=== PATIENT | male | born 1960 | race Caucasian/White ===

== ENCOUNTER 2019-05-01 04:50 | Observation (INO) | payer OTHER, SELFPAY ==
[2019-05-01] VITALS (10 sets, daily range): BP systolic 130–151; BP diastolic 76–89; PULSE 60–87; RESP 16–19; TEMP 36.4–36.9; O2SAT 95–99; BMI 36.3; BMI 35.9
[2019-05-01] MEDS: DiphenhydrAMINE 50 MG/ML Syringe IV (05:32)
[2019-05-01] MEDS: MethylPREDNISolone 125 MG/2 ML Vial IV (05:33)
--- NOTE | 2019-05-01 05:37 | ED.VISSUMM ---
- ER Visit Summary Date of Service: 05/01/19 Chief Complaint: [Swelling to lips] History of Present Illness: The patient is a 59 M [presents to the emergency department complaint of swelling to his lips that he noticed this morning at 3:30 AM when he woke up to use the restroom. Patient denies any trauma. He denies difficulty breathing or swallowing at this time. He is never had this happen before. Patient is on lisinopril and has been on it for years. He denies any new medications. He denies recent illness. Patient has history of GERD, hypertension, high cholesterol.] Physical Examination: [HEENT-PERRLA, EOMI. Cranial nerves II through XII grossly intact. TMs clear. Mucous membranes moist. No adenopathy. Patient has significant edema of the upper and lower lips as well as onto the right vehicle mucosa. No evidence of angioedema of the tongue at this time. Minimal angioedema of the uvula noted. Was in the midline and there is no trismus. No stridor on exam. Cardiovascular-regular rate and rhythm without murmur or ectopy Lungs-clear to auscultation, chest wall stable without crepitus or subcu emphysema Abdomen-normoactive bowel sounds, soft, nontender, no rebound or rigidity, no peritoneal signs. Extremities-intact ?4, normal range of motion, normal pulses, atraumatic] Test Results: [None indicated] Emergency Department Course and Treatment: [She was given Solu-Medrol 125 mill grams IV. Patient given Benadryl 50 mg IV. Patient given Pepcid 40 mg IV.] Treatment Plan: [Will be admitted for observation.] Disposition: [Admit] Impression: [Angioedema secondary to lisinopril] This note was generated with [employer] dictation software. It may contain incorrect words, spelling, and punctuation that were not noted in review of the chart prior to signing ED Disposition - Plan for ED Patient: [facility] [[facility] Provider] -
--- NOTE | 2019-05-01 05:41 | ED.RN ---
CALLED [facility], SPOKE TO ANA, BED CONTROL, TO ADVISE THE NEED TO ADMIT THIS PT. FAXED TO HER SOME REQUESTED INFORMATION.
--- NOTE | 2019-05-01 05:50 | PCM.HP.STD ---
Problem List (1) Hypertension Status: Chronic (2) Angioedema Status: Acute History of Present Illness Date of Admission: 05/01/19 Chief Complaint: lips swollen The patient is a 59 year old male patient with a past medical history of hypertension who is been treated with lisinopril for several years presents the emergency room with swelling of his lips. He states prior to going to bed he felt a little funny in his right cheek but when he woke up at 3:00 to go to the bathroom he realized his lips were markedly swollen and as a result he found it difficult to speak clearly. He denies shortness of breath, there was no tongue swelling or oropharynx involvement. No nausea vomiting or diarrhea. Due to concern for sudden swelling of his lips patient came to the emergency room for evaluation and was diagnosed with angioedema secondary to lisinopril. The patient received famotidine Benadryl and steroids in the emergency room and admission for observation was requested. Past Medical History Past Medical History (Chronic Problems): Chronic Problems Hypertension (Chronic) Allergies No Known Allergies Allergy (Verified 05/01/19 04:51) Home Medications: Ambulatory Orders Medication Instructions Recorded Gabapentin [Neurontin] 600 mg PO TIDCM 05/01/19 Lisinopril [Zestril] 10 mg PO DAILY 05/01/19 Pantoprazole Sodium [Protonix] 40 mg PO DAILY 05/01/19 Smoking Status: Current some day smoker - *Family History Maternal History Items: No pertinent history Review of Systems Constitutional: Denies: Chills, Fever, Weight Change HEENT: Denies: Head Aches, Sinus Congestion, Sinus Drainage Cardiovascular: Denies: Chest Pain, Palpitations Respiratory: Denies: Cough, Shortness of breath at rest, Sputum production Gastrointestinal: Denies: Abdominal Pain, Nausea, Vomiting Genitourinary: Denies: Dysuria Musculoskeletal: Denies: Joint Pain, Joint Tenderness Skin: Reports: Skin Changes - edema mouth. Denies: Rash, Wounds Neurological: Reports: Change in Speech. Denies: Focal weakness, Numbness, Tingling Psychiatric: Denies: Anxiety, Depression, Homicidal Ideations, Suicidal Ideations Hematologic/ Lymphatic: Denies: Easy Bruising, Easy Bleeding VTE Information - Inpt Only VTE Present on Admission: No VTE Mechan Device Prophylaxis: None VTE Pharm Prophylaxis ordered?: Yes Patient Problems: Active and Suspected Problems Angioedema (Acute) - Physical Exam General: Alert, Oriented x3, Cooperative HEENT: Normocephalic Neck: Supple Lungs: Clear to auscultation, Normal air movement, No rhonchi, No wheeze, No rales Cardiovascular: Regular rate, Regular Rhythm, Normal S1, Normal S2, No murmurs Abdomen: Bowel Sounds Present, Soft, Non Tender Extremities: No edema, Capillary Refill Less than 3 Seconds Skin: No rashes, - - marked swelling of both lips and surrounding face, tongue, dominic and posterior pharynx are wnl Musculoskeletal: No Tenderness to Palpation of Joints or Extremities Neurological: Neuro grossly intact Psych/Mental Status: Normal Affect, Appropriate Vital Signs Temp Pulse Resp BP Pulse Ox 98.4 F 87 19 H 130/89 H 99 05/01/19 04:54 05/01/19 05:40 05/01/19 05:40 05/01/19 05:40 05/01/19 05:40 Oxygen Delivery Method Room Air Weight: 260 lb 2.327 oz Body Mass Index (BMI) 36.3 Assessment/Plan All Active Problems Angioedema (Acute) Chronic Problems Hypertension (Chronic) Plan 1. Angioedema?admit patient to progressive care unit for observation, continue Benadryl 50 mg IV every 6 hours as needed continue famotidine 20 mg IV every 12 hours as needed, IV Solu-Medrol 60 mg IV every 6 as needed. Discontinue RAMAN inhibitors for life 2. Hypertension?now that RAMAN inhibitor has been discontinued we will need to evaluate if alternative is necessary at this time or if can be started as an outpatient. 3. DVT prophylaxis?low molecular weight heparin 4. GERD?continue home medication Code Visit OBSV E&M: 11401 Initial observation care L2
--- NOTE | 2019-05-01 11:34 | DCINST_ITS ---
- Discharge Diagnoses Current Active Problems: Current Active and Chronic Problems Hypertension (Chronic) Angioedema (Acute) You will use the following diet at home:: Cardiac Your food should be the consistency of: Regular Your liquids should be the consistency of: Regular/Thin Discharge Activity: Return to Normal Activity Additional Instructions: do not take any more lisinopril. Allergies/Adverse Reactions: Allergies lisinopril Allergy (Verified 05/01/19 08:20) Angioedema Medications to take at Discharge Amlodipine [Norvasc] 5 mg PO DAILY #30 tab 05/01/19 DiphenhydrAMINE [Benadryl] 25 mg PO TID #9 capsule 05/01/19 Gabapentin [Neurontin] 600 mg PO TIDCM 05/01/19 Pantoprazole Sodium [Protonix] 40 mg PO DAILY 05/01/19 Prednisone 10 mg PO UD #30 tab 05/01/19 The following prescriptions were given: DiphenhydrAMINE [Benadryl] 25 mg PO TID #9 capsule Amlodipine [Norvasc] 5 mg PO DAILY #30 tab Transmission Status: Pending to [facility] Prednisone 10 mg PO UD #30 tab Prescription Printed Primary Care Physician: [facility],[place] [Primary Care Provider] - Please follow up with your Primary Care Physician in: 1-2 weeks Test Results: Test results from this visit will be discussed in further detail at your follow- up appointment, if applicable. Proposed Discharge Date: 05/01/19
--- NOTE | 2019-05-01 12:16 | PHA.DC.MC ---
Pharmacy Service has performed discharge medication reconciliation and counseling for this patient. The patient's discharge medication list was reviewed for discrepancies and discrepancies were resolved. The patient was counseled on the following discharge medications and changes in medications for homegoing were reviewed. 1. PREDNISONE TAPER 2. AMLODIPINE 5MG 1T PO DAILY 3. BENADRYL 25MG PO TID The Reason for Use, instructions for use, and potential side effects were reviewed for all new medications. The patient's questions regarding all of their medications were answered. The patient demonstrated some understanding but would benefit from further education and reinforcement. Home Medications Amlodipine [Norvasc] 5 mg PO DAILY #30 tab 05/01/19 DiphenhydrAMINE [Benadryl] 25 mg PO TID #9 cap 05/01/19 Gabapentin [Neurontin] 600 mg PO TIDCM 05/01/19 Pantoprazole Sodium [Protonix] 40 mg PO DAILY 05/01/19 Prednisone 10 mg PO UD #30 tab 05/01/19
--- NOTE | 2019-05-01 13:54 | PCM.DC.SUM ---
Discharge Date and Diagnosis - Problem List Patient Problems: Active and Suspected Problems Angioedema (Acute) Date of Admission: 05/01/19 Date of Discharge: 05/01/19 - Primary Discharge Diagnosis Active and Suspected Problems Angioedema (Acute) 2/2 RAMAN inhibitor HTN - Secondary Discharge Diagnosis Chronic Problems Hypertension (Chronic) Hospital Course and Treatment Operations: None Procedures: None Summary of Care Provided: The patient is a 59 year old M with pmhx of HTN who presented to the ER with facial swelling. He had major swelling of the lips and also had swelling into the eyes. His tongue was unaffected. He had no respiratory distress, SOB, or throat tightness. He did have difficulty speaking. He was given IV solumedrol and IV benadryl, and IV pepcid and admitted to the PCU on tele. He was taken off lisinopril. He had significant improvement overnight. His lips improved dramatically. He continued to not have any involvement of the tongue or throat. He had no respiratory distress. He was transitioned to a prednisone taper and advised to continue scheduled benadryl for the next three days. He was discharged home in stable condition and will need follow up with his PCP in 1-2 weeks. He was started on norvasc to replace the lisinopril. [] Patient Problems: Active and Suspected Problems Angioedema (Acute) - Physical Exam General: Alert, Oriented x3, Cooperative HEENT: Atraumatic, PERRLA, EOMI, Normocephalic Oral: - - Lips swelling. Neck: Supple, No JVD, Negative Carotid Bruits Lungs: Clear to auscultation, Normal air movement Cardiovascular: Regular rate, No murmurs Abdomen: Bowel Sounds Present, Soft, Non Tender Extremities: No edema, Capillary Refill Less than 3 Seconds Skin: No rashes, No breakdown Musculoskeletal: No Tenderness to Palpation of Joints or Extremities Neurological: Cranial nerves II-XII grossly intact Psych/Mental Status: Normal Affect, Appropriate Vital Signs Temp Pulse Resp BP Pulse Ox 97.5 F L 78 18 139/79 H 98 05/01/19 07:02 05/01/19 07:29 05/01/19 07:02 05/01/19 07:02 05/01/19 07:02 Oxygen Delivery Method Room Air Weight: 257 lb 4.471 oz Body Mass Index (BMI) 35.9 Discharge Diet: Low fat/ Low Cholesterol, 2000 mg Sodium Diet Discharge Activity: Return to Normal Activity Home Medications: Medications to take at Discharge Amlodipine [Norvasc] 5 mg PO DAILY #30 tab 05/01/19 DiphenhydrAMINE [Benadryl] 25 mg PO TID #9 cap 05/01/19 Gabapentin [Neurontin] 600 mg PO TIDCM 05/01/19 Pantoprazole Sodium [Protonix] 40 mg PO DAILY 05/01/19 Prednisone 10 mg PO UD #30 tab 05/01/19 Following Prescrptions Were Given to Patient: DiphenhydrAMINE [Benadryl] 25 mg PO TID #9 cap Amlodipine [Norvasc] 5 mg PO DAILY #30 tab Transmission Status: Received by [facility] Prednisone 10 mg PO UD #30 tab Prescription Printed Primary Care Physician: [facility] [Primary Care Provider] - Please follow up with your Primary Care Physician in: 1-2 weeks Disposition: Home Minutes spent on discharge:: 35 Patient Condition:: Stable Medical Necessity - Tobacco Use Smoking Status: Current some day smoker Tobacco Use: Cigars Meaningful Use Info Meaningful Use Diagnoses (Choose all that apply): None applicable
[2019-05-01] MEDS: MethylPREDNISolone 125 MG/2 ML Vial 60 MG IV ×2 (14:16→17:18)
--- NOTE | 2019-05-01 17:17 | PCM.PROGNOTE ---
Patient Problems: Active and Suspected Problems Angioedema (Acute) Subjective: Pt resting comfortably in bed. Lips still somewhat swollen. No throat tightness, no SOB, no difficulty breathing. No hives. No chest pain/pressure/tightness. No LE edema. Taking lisinopril for HTN - not taking any other meds for htn. - Physical Exam General: Alert, Oriented x3, Cooperative HEENT: Atraumatic, PERRLA, EOMI, Normocephalic, - - lips swollen. Neck: Supple, No JVD, Negative Carotid Bruits Lungs: Clear to auscultation, Normal air movement Cardiovascular: Regular rate, No murmurs Abdomen: Bowel Sounds Present, Soft, Non Tender, Obese Extremities: No edema, Capillary Refill Less than 3 Seconds Skin: No rashes, No breakdown Musculoskeletal: No Tenderness to Palpation of Joints or Extremities Neurological: Cranial nerves II-XII grossly intact Psych/Mental Status: Normal Affect, Appropriate, Alert and oriented to time, place, person, mood and affect Vital Signs Temp Pulse Resp BP Pulse Ox 98 F 71 16 138/81 H 95 05/01/19 15:10 05/01/19 15:24 05/01/19 15:10 05/01/19 15:10 05/01/19 15:10 Oxygen Delivery Method Room Air Weight: 257 lb 4.471 oz Body Mass Index (BMI) 35.9 Intake and Output for Last 24 Hours 04/29/19 04/30/19 05/01/19 23:59 23:59 23:59 Intake Total 480 / 480 Balance 480 / 480 Medical Necessity - Tobacco Use Smoking Status: Current some day smoker Tobacco Use: Cigars Assessment/Plan All Active Problems Angioedema (Acute) 1. Angioedema - presumed 2/2 portillo inhibitor. DCd. Start norvasc. Rx sent. Continue solumedrol/benadryl/pepcid. Still some swelling, monitor for worsening. Plan for prednisone taper, o/p benadryl, switching to norvasc 2. HTN - switch to norvasc. DVT ppx: lovenox DC planning: monitor overnight. home without needs at [place], [facility]. This patient was seen by Brayan Dugan PA-C under the supervision of Dr. Crespo.
--- NOTE | 2019-05-01 19:32 | NURSING ---
Patient refused MRI due to possibility of having to pay out of pocket. This RN will pass onto dayshift to share with case management.
[2019-05-02] MEDS: MethylPREDNISolone 125 MG/2 ML Vial 60 MG IV ×2 (00:47→06:45)
[2019-05-02] MEDS: 0.9% NaCl Peripheral Flush Adult/Peds IV ×4 (00:48→08:54)
[2019-05-02 03:00] VITALS: PULSE 60
[2019-05-02 04:40] VITALS: BP 138/76; PULSE 70; RESP 16; TEMP 36.4; O2SAT 94
[2019-05-02 06:25] LABS: Absolute Lymphocyte Count 0.71 X10^3/uL (0.83-4.51); Absolute Neutrophil Count 17.9 X10^3/uL (2.0-7.7); Basophil# 0.03 X10^3/uL; Basophil% 0.2 % (0-1); Eosinophil# 0.02 X10^3/uL; Eosinophils% 0.1 % (0-5); Hematocrit 43.8 % (40-54); Lymphocyte # 0.71 X10^3/ul (4.0); Lymphocyte % 3.6 % (19-41); Mean Corp Hgb Conc 34.2 g/dL (32-36); Mean Corpuscular Hgb 32.9 pg (27.0-32.0); Mean Corpuscular Volume 96.1 fL (80-94); Mean Platelet Vol. 9.7 fl (6.2-12.0); Monocyte# 0.62 X10^3/uL; Monocyte% 3.2 % (0-10); NRBC Flagged by Analyzer 0 % (0-5); Neutrophil # 17.89 X10^3/uL (2.7-7.7); Neutrophil % 91.8 % (47-70); POSITIVE MORPHOLOGY YES; Platelet Count 262 K/mm3 (150-450); RBC Distribution Width CV 12.8 % (11.6-14.6); RBC Distribution Width SD 45.4 fl (35.1-43.9); Red Blood Count 4.56 M/mm3 (4.6-6.2); White Blood Count 19.5 K/mm3 (4.4-11.0)
[2019-05-02 06:33] LABS: Differential Indicated SCAN CRITERIA MET
[2019-05-02 06:54] LABS: AST(SGOT) 49 U/L (15-37); Alanine Aminotransfer ALT/SGPT 53 U/L (16-61); Albumin, Serum 3.8 g/dL (3.2-5.0); Alkaline Phosphatase 96 U/L (45-117); Anion Gap 8 (5-15); BUN 14 mg/dL (7-18); Calcium,Total 9.1 mg/dL (8.5-10.1); Chloride 105 mmol/L (98-107); Cholesterol 202 mg/dL (200); EST Glomerular Filtration Rate 81 mL/min (>60); Est Glom Filt Rate - Afr Amer 98 mL/min (>60); Estimated Creatinine Clearance 83.67 ml/min; Glucose 145 mg/dL (74-106); High Density Lipoprotein 43 mg/dL; Magnesium 2.5 mg/dL (1.6-2.6); Phosphorus 2.4 mg/dL (2.5-4.9); Potassium 4.3 mmol/L (3.5-5.1); Protein, Total 7.8 g/dL (6.4-8.2); Sodium Level 136 mmol/L (136-145); Triglycerides 60 mg/dL; Very Low Density Lipoprotein 12 mg/dL (5-40)
[2019-05-02 07:00] VITALS: PULSE 90
--- NOTE | 2019-05-02 08:12 | DCINST_ITS ---
- Discharge Diagnoses Current Active Problems: Current Active and Chronic Problems Hypertension (Chronic) Angioedema (Acute) You will use the following diet at home:: Cardiac Your food should be the consistency of: Regular Your liquids should be the consistency of: Regular/Thin Discharge Activity: Return to Normal Activity Allergies/Adverse Reactions: Allergies lisinopril Allergy (Verified 05/01/19 08:20) Angioedema Medications to take at Discharge Amlodipine [Norvasc] 5 mg PO DAILY #30 tab 05/01/19 Gabapentin [Neurontin] 600 mg PO TIDCM 05/01/19 Pantoprazole Sodium [Protonix] 40 mg PO DAILY 05/01/19 Famotidine [Pepcid] 40 mg PO DAILY 3 Days #3 tablet 05/02/19 Loratadine [Claritin] 10 mg PO DAILY 3 Days #3 tablet 05/02/19 MethylPREDNISolone DosePak [Medrol DosePak] 4 mg PO UD #1 box 05/02/19 The following prescriptions were given: Loratadine [Claritin] 10 mg PO DAILY 3 Days #3 tablet MethylPREDNISolone DosePak [Medrol DosePak] 4 mg PO UD #1 box Amlodipine [Norvasc] 5 mg PO DAILY #30 tab Transmission Status: Received by [facility] [facility] Famotidine [Pepcid] 40 mg PO DAILY 3 Days #3 tablet Primary Care Physician: [facility] [Primary Care Provider] - Please follow up with your Primary Care Physician in: 1-2 weeks Test Results: Test results from this visit will be discussed in further detail at your follow- up appointment, if applicable. Proposed Discharge Date: 05/01/19
[2019-05-02 08:30] VITALS: BP 147/77; PULSE 82; RESP 16; TEMP 36.6; O2SAT 99
[2019-05-02] MEDS: Acetaminophen 325 MG Tablet 650 MG PO (08:36)
[2019-05-02] MEDS: amLODIPine 5 MG Tablet PO (08:40)
[2019-05-02] MEDS: Loratadine 10 MG Tablet PO (08:41)
== END 2019-05-02 08:03 | disposition home or self-care (01) ==
LOC: ED 05:34 → PCU 06:54
PROVIDERS: Admitting Provider Family Medicine; Emergency Provider Emergency Medicine; Visit Provider Internal Medicine
DX: T78.3XXA Angioneurotic edema, initial encounter (principal); T46.4X5A Adverse effect of angiotensin-converting-enzyme inhibitors, initial encounter; I10 Essential (primary) hypertension; Z79.899 Other long term (current) drug therapy; E78.00 Pure hypercholesterolemia, unspecified; K21.9 Gastro-esophageal reflux disease without esophagitis
CPT/HCPCS: 36415; 80053; 80061; 83735; 84100; 85025; 96374; 96375; 96376; 99218; 99285; A4216; G0378; J3490

== ENCOUNTER 2020-09-20 18:57 | Emergency (ER) | payer OTHER, MEDICAID, SELFPAY ==
[2019-05-01 06:54] VITALS: BMI 35.9
[2020-09-20] VITALS (10 sets, daily range): BP systolic 109–166; BP diastolic 66–104; PULSE 89–110; RESP 14–24; TEMP 36.5; O2SAT 95–99; BMI 35.6
--- NOTE | 2020-09-20 19:45 | ED.DCSUM_ITS ---
- ER Visit Summary Date of Service: 09/20/20 Chief Complaint: Steak stuck in his throat History of Present Illness: The patient is a 60 M history of hypertension. He has had prior esophageal obstruction but did not need to be scoped he threw up the meat at that time. Said tonight for dinner around 5:00 he had steak has not been able swallow since then. He feels like it stuck in his esophagus. Physical Examination: Middle-aged male no acute distress vital signs stable afebrile. The patient a glass of water he can swallow up but it would not stay down he brought her right back up. He is in no respiratory distress. Vital signs are stable afebrile. Pulse ox 97% on room air no hypoxia. HEENT exam unremarkable. Neck nontender no lymphadenopathy. Lungs clear to auscultation. Heart regular rhythm no murmur. Abdomen soft nontender normal bowel sounds no peritoneal signs. Moving all 4 extremities. No edema. Neurologically is awake alert with no focal motor deficits. Test Results: None Emergency Department Course and Treatment: Patient treated with IV glucagon. He is unable to swallow. Clinically appears to have esophageal obstruction from the meat bolus. I have general surgery on page. IV glucagon without any improvement. Procedure note: Dr. Justice to do upper endoscopy. I was doing the conscious sedation using IV propofol. Patient was initially given 100 mg of propofol. After that he was given subsequent aliquots of 50 mg IV x3 for a total of [address] Justice I was able to see the esophageal meat bolus. He was able to push it in the stomach. Patient tolerated procedure well. His vital signs remained stable. He never became hypotensive nor hypoxic the entire time. He will be observed and then eventually discharged home. Patient doing well at 9:57 PM and will be discharged home with family is going to pick him up. Treatment Plan: Outpatient follow-up with Dr. Clyde Justice. Continue on his current medications. Disposition: Discharge Impression: Acute esophageal obstruction secondary to meat impaction Conscious sedation using propofol by ER Upper endoscopy by general surgeon This note was generated with [employer] dictation software. It may contain incorrect words, spelling, and punctuation that were not noted in review of the chart prior to signing ED Disposition - Plan for ED Patient: Disposition: Home or Assisted Living Instructions: ED Esophageal Foreign Body, Resolved Referrals: Clyde Justice MD [STAFF PHYSICIAN] - 1-2 Weeks Additional Instructions: Continue your current medications. Chew your food thoroughly and slowly before swallowing. Call and follow-up with Dr. Clyde Justice for possible further upper endoscopy.
[2020-09-20] MEDS: Glucagon 1 MG/ML Syringe IV (19:48)
[2020-09-20] MEDS: Propofol 200 MG/20 ML Vial 80 MG IV BOLUS (21:27)
--- NOTE | 2020-09-20 21:28 | ED.DEP ---
ED Disposition - Plan for ED Patient: Disposition: Home or Assisted Living Instructions: ED Esophageal Foreign Body, Resolved Referrals: Clyde Justice MD [STAFF PHYSICIAN] - 1-2 Weeks Additional Instructions: Continue your current medications. Chew your food thoroughly and slowly before swallowing. Call and follow-up with Dr. Clyde Justice for possible further upper endoscopy.
[2020-09-20] MEDS: Propofol 200 MG/20 ML Vial IV BOLUS (21:30)
--- NOTE | 2020-09-20 21:31 | PCM.CONS.GEN ---
Problem List (1) Food impaction of esophagus Status: Acute Qualifiers: Encounter type: initial encounter Qualified Code(s): T18.128A - Food in esophagus causing other injury, initial encounter Reason for Consult Date of Consultation: 09/20/20 History of Present Illness: The patient is a 60 year old M who presented after swallowing steak for dinner and feeling like it did not go down. He has been vomiting since. This is happened once in the past but he did vomit the food bolus. He does have acid reflux and he is on a PPI. Past Medical History Past Medical History (Chronic Problems): Chronic Problems Hypertension (Chronic) Allergies lisinopril Allergy (Verified 09/20/20 18:58) Angioedema Home Medications: Ambulatory Orders Medication Instructions Recorded Amlodipine [Norvasc] 5 mg PO DAILY #30 tab 05/01/19 Gabapentin [Neurontin] 600 mg PO TIDCM 05/01/19 Pantoprazole Sodium [Protonix] 40 mg PO DAILY 05/01/19 Smoking Status: Current some day smoker Tobacco Use: Cigars - *Family History Maternal History Items: No pertinent history Review of Systems Constitutional: Denies: Anorexia, Fever HEENT: Reports: Dysphasia Cardiovascular: Denies: Chest Pain Respiratory: Denies: Cough, Shortness of Breath Gastrointestinal: Reports: Vomiting. Denies: Abdominal Pain, Nausea Musculoskeletal: Denies: Joint Tenderness Skin: Denies: Jaundice Neurological: Denies: Balance problems Hematologic/ Lymphatic: Denies: Anemia - Physical Exam Vitals/I&O's: Vital Signs Temp Pulse Resp BP Pulse Ox 97.7 F L 103 H 19 H 131/81 H 97 09/20/20 18:59 09/20/20 21:25 09/20/20 21:25 09/20/20 21:25 09/20/20 21:25 Oxygen Flow Rate (L/min) [5] 15 Oxygen Flow Rate (L/min) [4] 15 Oxygen Flow Rate (L/min) [3] 15 Oxygen Flow Rate (L/min) [2] 15 Oxygen Flow Rate (L/min) [1 ( 2 Initial Baseline)] Oxygen Flow Rate (L/min) 2 Oxygen Delivery Method [5] Nasal Cannula Oxygen Delivery Method [4] Nasal Cannula Oxygen Delivery Method [3] Nasal Cannula Oxygen Delivery Method [2] Nasal Cannula Oxygen Delivery Method [1 ( Nasal Cannula Initial Baseline)] Oxygen Delivery Method Nasal Cannula Weight: 256 lb Body Mass Index (BMI) 35.6 General: Alert, Oriented x3 Lungs: Normal air movement Cardiovascular: Regular rate, Regular Rhythm Abdomen: Soft, Non Tender, Non-Distended Assessment/Plan All Active Problems Angioedema (Acute) Food impaction of esophagus (Acute) 60-year-old male with food impaction of the esophagus 1. Patient does have longstanding acid reflux but he is on a PPI. This is happened once in the past. Patient is unable to handle his secretions. I discussed EGD with possible removal or advancement of the food bolus. The patient is understanding and agreed to proceed. I discussed the risks of bleeding, infection, perforation of the esophagus, aspiration. Patient understood and proceed with procedure. 2. The patient tolerated EGD well and a food bolus was advanced into the esophagus. The patient started to come out of anesthesia and I did not want to give him any more medication so I was unable to identify the reason for the food impaction. There is no obvious mass on the quick observation of the esophagus during withdrawal. I would like the patient to follow-up with me and I will schedule him for an elective EGD with possible dilation if there is a stricture causing this obstruction. I have recommended that the patient have a soft diet for the next 2 days. Clyde Justice MD Pager: [facility] [address] [place] [address], [address] [place] [phone] Office:
--- NOTE | 2020-09-20 21:37 | OP.EGD_ITS ---
Patient Name: Daniel Avilez Procedure Date: 09/20/2020 9:07 PM Date of : 1960 Age: 60 Procedure: Upper GI endoscopy Indications: Foreign body in the esophagus Providers: Clyde Justice MD Medicines: Monitored Anesthesia Care Patient Profile: This is a 60 year old male. Refer to note in patient chart for documentation of history and physical. Complications: No immediate complications. Procedure: Pre-Anesthesia Assessment: - Prior to the procedure, a History and Physical was performed, and patient medications and allergies were reviewed. The patient's tolerance of previous anesthesia was also reviewed. The risks and benefits of the procedure and the sedation options and risks were discussed with the patient. All questions were answered, and informed consent was obtained. Prior Anticoagulants: The patient has taken no previous anticoagulant or antiplatelet agents. After reviewing the risks and benefits, the patient was deemed in satisfactory condition to undergo the procedure. After obtaining informed consent, the endoscope was passed under direct vision. Throughout the procedure, the patient's blood pressure, pulse, and oxygen saturations were monitored continuously. The Endoscope was introduced through the mouth, and advanced to the second part of duodenum. The upper GI endoscopy was accomplished without difficulty. The patient tolerated the procedure well. Scope In: 9:18:21 PM Scope Out: 9:21:32 PM Total Procedure Duration Time 0 hours 3 minutes 11 seconds Findings: Food was found in the lower third of the esophagus. Removal of food was accomplished. Food was advanced into the stomach The stomach was normal. Impression: - Food in the lower third of the esophagus. Removal was successful. - Normal stomach. Recommendation: - Discharge patient to home. - Resume previous diet. - Continue present medications. - Return to my office at appointment to be scheduled. Procedure Code(s): --- Professional --- 16026, Esophagogastroduodenoscopy, flexible, transoral; with removal of foreign body(s) Diagnosis Code(s): --- Professional --- T18.128A, Food in esophagus causing other injury, initial encounter T18.108A, Unspecified foreign body in esophagus causing other injury, initial encounter CPT copyright 2017 [employer]. All rights reserved. The codes documented in this report are preliminary and upon transmission and coordination engineer review may be revised to meet current compliance requirements. Clyde Justice MD 09/20/2020 9:35:43 PM This report has been signed electronically. Number of Addenda: 0 Note Initiated On: 09/20/2020 9:07 PM
--- NOTE | 2020-09-20 21:37 | OP.CCLET_ITS ---
09/20/2020 [facility] Re : Upper GI endoscopy procedure for [facility] This procedure was performed on Sunday, September 20, 2020. My impressions and recommendations are as follows: Impressions : - Food in the lower third of the esophagus. Removal was successful. - Normal stomach. Recommendations : - Discharge patient to home. - Resume previous diet. - Continue present medications. - Return to my office at appointment to be scheduled. My findings are described in the full procedure note, which is enclosed. If I can be of further assistance, please feel free to contact me at Doctor phone number(s): , Work: . Sincerely, Clyde Justice MD 09/20/2020 9:35:43 PM This report has been signed electronically.
--- NOTE | 2020-09-20 22:25 | ED.RN ---
pt called family for ride. Niece picking up pt
== END 2020-09-20 22:26 | disposition home or self-care (01) ==
PROVIDERS: Surgery; Emergency Provider Emergency Medicine
PROC: 0DJ08ZZ Inspection of Upper Intestinal Tract, Via Natural or Artificial Opening Endoscopic (ICD-10-PCS; CPT 43235; principal; 2020-09-20 21:00)
DX: T18.128A Food in esophagus causing other injury, initial encounter (principal); F17.200 Nicotine dependence, unspecified, uncomplicated; I10 Essential (primary) hypertension; X58.XXXA Exposure to other specified factors, initial encounter
CPT/HCPCS: 43247; 96374; 96376; 99152; 99285; J7030; A4216; J1610

== ENCOUNTER → 2022-11-24 | Outpatient (CLI) | payer OTHER, SELFPAY ==
--- NOTE | 2022-11-24 12:04 | CT_ITS ---
STUDY: CT CHEST WITHOUT CONTRAST REASON FOR EXAM: Male, 62 years old. Worsening shortness of breath. Patient smoked half a pack of cigarettes per day for 20 years. RADIATION DOSAGE (If Supplied By Facility): CTDIvol = ( 20.12 ) mGy, DLP = ( 779.32 ) mGycm TECHNIQUE: Transaxial imaging was performed without the administration of intravenous contrast material. Multiplanar coronal and sagittal images were reformatted. Individualized dose optimization techniques were used for this CT. COMPARISON: No relevant priors. FINDINGS: CHEST Small benign-appearing bilateral axillary lymph nodes. Small right pleural effusion with right basilar atelectasis. Minimal atelectasis at the left lung base. There There is no demonstrated pleural abnormality. There are calcifications of the coronary arteries. Minimal anterior pericardial thickening. There are multiple small lymph nodes within the mediastinum, which are normal in size and morphology most compatible with reactive lymph hyperplasia. Normal hilar regions. Normal unenhanced pulmonary arteries. There is atherosclerotic calcification of the aortic arch with tortuosity and elongation of the aortic arch and descending thoracic aorta. There are multi-level degenerative changes of the thoracic spine. Small hiatal hernia. CT/Chest without Contrast IMPRESSION: Small right pleural effusion with right basilar atelectasis. Minimal degree of atelectasis at the left lung base. Electronically Signed: Angel Brown MD at 14:06 EST ,
== END | disposition home or self-care (01) ==
LOC: CT 12:02
DX: R06.00 Dyspnea, unspecified (principal)
CPT/HCPCS: 71250

== ENCOUNTER 2023-01-24 15:27 | Inpatient (IN) | payer MEDICAID, SELFPAY ==
[2023-01-24] VITALS (7 sets, daily range): BP systolic 103–117; BP diastolic 64–87; PULSE 83–99; RESP 18–21; TEMP 36.1–36.9; O2SAT 94–97; BMI 41.3; BMI 42.1
--- NOTE | 2023-01-24 15:55 | RAD_ITS ---
INDICATION: sob EXAMINATION/TECHNIQUE: X-RAY - XR Chest 1 View COMPARISON: None. FINDINGS: LINES/DEVICES: None. LUNGS: There is a moderate right effusion. No pneumothorax. MEDIASTINUM AND CARDIOVASCULAR STRUCTURES: Cardiac silhouette is enlarged. Central airways and mediastinal contour are unremarkable. BONES AND SOFT TISSUES: Degenerative vertebral changes. RAD/Chest 1 View (Portable) IMPRESSION: Right pleural effusion. Cardiomegaly. Electronically Signed: Shlomo Gates DO at 16:09 EDT ,
[2023-01-24 15:58] LABS: Absolute Lymphocyte Count 0.78 X10^3/uL (0.83-4.51); Absolute Neutrophil Count 9.8 X10^3/uL (2.0-7.7); Basophil# 0.02 X10^3/uL; Basophil% 0.2 % (0-1); Eosinophil# 0.02 X10^3/uL; Eosinophils% 0.2 % (0-5); Hematocrit 46.7 % (40-54); Hemoglobin 15.4 g/dL (13.0-16.5); Lymphocyte # 0.78 X10^3/ul (0.83-4.51); Lymphocyte % 6.7 % (19-41); Mean Corpuscular Hgb 28.2 pg (27.0-32.0); Mean Corpuscular Volume 85.4 fL (80-94); Mean Platelet Vol. 11.1 fl (6.2-12.0); Monocyte% 8.6 % (0-10); NRBC Flagged by Analyzer 0.3 % (0-5); Neutrophil # 9.78 X10^3/uL (2.7-7.7); Neutrophil % 83.9 % (47-70); Platelet Count 297 K/mm3 (150-450); RBC Distribution Width CV 14.5 % (11.6-14.6); RBC Distribution Width SD 45.1 fl (35.1-43.9); Red Blood Count 5.47 M/mm3 (4.6-6.2); White Blood Count 11.7 K/mm3 (4.4-11.0)
[2023-01-24 16:23] LABS: Anion Gap 10 (5-15); BNP,B-Type NATRIURETIC PEPTIDE 1709.4 pg/mL (0-100); BUN 37 mg/dL (7-18); BUN/Creat Ratio 25.2 RATIO (10-20); Calcium,Total 8.9 mg/dL (8.5-10.1); Chloride 83 mmol/L (98-107); Creatinine, Serum 1.47 mg/dL (0.70-1.30); EST Glomerular Filtration Rate 51 mL/min (>60); Est Glom Filt Rate - Afr Amer 62 mL/min (>60); Estimated Creatinine Clearance 54.78 ml/min; Glucose 116 mg/dL (74-106); Potassium 4.9 mmol/L (3.5-5.1); Sodium Level 119 mmol/L (136-145)
[2023-01-24 16:48] LABS: D-Dimer Quantitative (DVT/PE) 3.82 FEU/ug/m (0.27-0.49); Troponin-I HS 28 pg/mL (3.0-78.0)
--- NOTE | 2023-01-24 16:48 | CT_ITS ---
STUDY: CTA CHEST REASON FOR EXAM: Male, 62 years old. dyspnea RADIATION DOSAGE (If Supplied By Facility): CTDIvol = ( 19.79 ) mGy, DLP = ( 536.19 ) mGycm TECHNIQUE: The examination was performed with the intravenous administration of IV 75mL Isovue-370. Post-processing of the angiographic images was performed, with multiplanar reformation and 3D reconstruction. Individualized dose optimization techniques were used for this CT. COMPARISON: None. FINDINGS: Normal enhancement of the main pulmonary artery and right and left pulmonary arteries. Normal enhancement of the bilateral peripheral pulmonary arteries. There is no demonstrated pulmonary embolism. Normal thoracic aorta and visualized great vessels. There is no demonstrated aortic dissection. Normal heart and pericardium. Normal mediastinum. Normal hilar regions. Normal visualized trachea and bronchi. There is a moderately large right pleural effusion with compression atelectasis of the right lung. Patchy bilateral pulmonary infiltrates. Normal chest wall structures. Normal osseous structures. Ascites in the visualized upper abdomen. CT/CTA Chest W/WO Contrast IMPRESSION: No demonstrated pulmonary embolism or arterial dissection. There is a moderately large right pleural effusion with compression atelectasis of the right lung. Patchy bilateral pulmonary infiltrates. Ascites. Electronically Signed: Shlomo Gates DO at 17:40 EDT Reading Location ID and State: [facility] / [place] Tel [phone], Service support ,
--- NOTE | 2023-01-24 17:52 | NURSING ---
DR VOGEL FOR DR GUILLEN
--- NOTE | 2023-01-24 18:26 | ECHOCS_ITS ---
Reason For Study: CHF Procedure This was a 2D Doppler, Color Flow transthoracic echocardiogram. Technically difficult study due to patient being scanned supine due to breathing. Contrast injection was performed. Exam performed portable in patient room. Left Ventricle Moderately dilated left ventricle. The estimated ejection fraction is 20 %. Stage 3 diastolic dysfunction. There is severe global hypokinesis of the left ventricle. Right Ventricle Normal RV size. Normal systolic function. Atria The left atrium is mildly enlarged. The right atrium is severely enlarged. Mitral Valve Normal mitral valve. Mild-Moderate (1-2+) eccentric mitral valve insufficiency. Tricuspid Valve Normal tricuspid valve. Mild to moderate (1-2+) tricuspid valve insufficiency. Pulmonary artery systolic pressure is 30 mmHg. Aortic Valve Trisinus/trileaflet aortic valve. Pulmonic Valve The pulmonic valve is not well visualized. Great Vessels Normal aortic root. The pulmonary artery is normal size. Normal inferior vena cava. Pericardium/Pleural No pericardial effusion. Medication Diluted definity 4ml given slow IV push to enhance endocardial definition. MMode/2D Measurements & Calculations LVIDd: 6.2 cm IVSd: 1.0 cm Ao root diam: 3.5 cm LVIDs: 6.2 cm LVPWd: 1.2 cm FS: 0.81 % LAV(MOD-bp): 64.2 ml LVAd ap4: 52.4 cm2 SV(MOD-sp4): 41.1 ml LAV(MOD-bp) Indexed: 25.5 ml/m2 LVLd ap4: 10.0 cm LAV(MOD-sp2): 54.9 ml EDV(MOD-sp4): 229.6 ml LAV(MOD-sp4): 71.2 ml EDV(sp4-el): 233.0 ml LVAs ap4: 48.5 cm2 LVLs ap4: 10.1 cm ESV(MOD-sp4): 188.5 ml ESV(sp4-el): 197.1 ml EF(MOD-sp4): 17.9 % EF(sp4-el): 15.4 % SV(sp4-el): 35.9 ml LA A4 area: 22.9 cm2 LA dimension(2D): 4.9 cm RA A4 area: 33.3 cm2 Time Measurements MV dec time: 0.17 sec Doppler Measurements & Calculations MV E max jose: 106.9 cm/sec Lat Peak E' Jose: 9.2 cm/sec Med Peak E' Jose: 4.8 cm/sec MV A max jose: 20.9 cm/sec E/E' lat: 11.7 E/E' med: 22.2 MV E/A: 5.1 MV dec slope: 634.7 cm/sec2 Ao V2 max: 100.7 cm/sec LV V1 max: 57.5 cm/sec Ao max P.1 mmHg LV V1 max P.4 mmHg Ao V2 mean: 67.8 cm/sec LV V1 mean P.73 mmHg Ao mean P.2 mmHg LV V1 mean: 39.0 cm/sec Ao V2 VTI: 15.9 cm LV V1 VTI: 8.4 cm AV (velocity ratio): 0.53 MR max jose: 365.8 cm/sec TR max jose: 252.2 cm/sec MR max P.5 mmHg TR max P.4 mmHg ECHO/Echo Complete W/ Contrast Interpretation Summary Moderately dilated left ventricle. The estimated ejection fraction is 20 %. Stage 3 diastolic dysfunction. There is severe global hypokinesis of the left ventricle. The right atrium is severely enlarged. Ordering Physician: Toni Guzmán Referring Physician: [facility] Performed By: Hailey Singh RCS
--- NOTE | 2023-01-24 18:45 | PCM.HP.STD ---
HPI - General General Date of Admission: 01/24/23 HPI Narrative BLAZE MILLER, is a 62 M who presents to the hospital with increasing shortness of breath and orthopnea. He started having some shortness of breath and lower extremity swelling about a month and a half ago and [facility] He is unsure whether or not he is ever had an echo. He was started on Lasix and this was increased but he says that he was not making any urine and it stopped working so he just stopped taking it. He now presents with a right moderate to large pleural effusion with significant shortness of breath with ambulation, periodic shortness of breath at rest and orthopnea. He does have significant lower extremity edema. He does also have hyponatremia with sodium of 119. Creatinine is at 1.47, his baseline is around 1 do not have any recent comparisons. BNP on admission was 1709 with a troponin of 28. Denies any chest pain around the time he started noticing shortness of breath. He did have a D-dimer as well which was elevated which necessitated a CTA of the chest which was negative for PE. [facility] Medical History (Updated 01/24/23 @ 18:[address] Toni Guzmán MD) Hypertension Home Medications pantoprazole 40 mg tablet,delayed release 40 mg PO DAILY stomach 05/01/19 [History Last Taken 04/30/19] amlodipine 5 mg tablet 10 mg PO DAILY blood pressure 01/24/23 [History Last Taken Unknown] simvastatin 20 mg tablet 20 mg PO QHS cholesterol 01/24/23 [History Last Taken Unknown] Allergy/AdvReac Type Severity Reaction Status Date / Time lisinopril Allergy Angioedema Verified 09/20/20 18:58 Family History (Updated 01/24/23 @ 18:[address] Toni Guzmán MD) Other Heart disease Surgical History (Updated 01/24/23 @ 18:[address] Toni Guzmán MD) H/O elbow surgery Social History Smoking Status: Former smoker ROS Constitutional Constitutional: Denies chills, fatigue, fever(s) or malaise Eyes Eyes: Denies blurry vision ENT HEENT: Denies headache(s) or nasal discharge Cardiovascular Cardiovascular: Reports edema and orthopnea; Denies chest pain, dyspnea on exertion or syncope Respiratory/Chest Respiratory/Chest: Reports shortness of breath at rest and shortness of breath with exertion; Denies cough Gastrointestinal Gastrointestinal: Denies constipation, diarrhea, nausea or vomiting Genitourinary Genitourinary: Denies dysuria Neurologic Neurologic: Denies focal weakness, numbness or tremor(s) Psychiatric Psychiatric: Denies anxiety or depression Vital Signs Vital Signs Vital Signs: 01/24/23 15:27 01/24/23 15:32 01/24/23 16:01 Temperature 97.0 F L Temperature Source Temporal Pulse Rate 83 Respiratory Rate 20 H Respiratory Effort Short of Breath Respiratory Depth Normal Respiratory Pattern Normal Blood Pressure 103/83 H Blood Pressure Mean 89 Pulse Ox 95 Oxygen Delivery Method Room Air Room Air Room Air 01/24/23 16:32 01/24/23 17:00 01/24/23 18:00 Temperature Temperature Source Pulse Rate 99 Respiratory Rate 18 21 H Respiratory Effort Respiratory Depth Respiratory Pattern Blood Pressure 113/84 H Blood Pressure Mean 93 Pulse Ox 97 Oxygen Delivery Method Room Air 01/24/23 17:50 Temperature 98.4 F Temperature Source Temporal Pulse Rate 99 Respiratory Rate 21 H Respiratory Effort Respiratory Depth Respiratory Pattern Blood Pressure 113/64 Blood Pressure Mean 80 Pulse Ox 94 Oxygen Delivery Method Room Air Weight Weight: 302 lb 4.06 oz Body Mass Index (BMI) 42.1 Physical Exam Narrative General: Alert, Oriented x3, Cooperative, No apparent distress HEENT: Atraumatic, PERRLA, EOMI, Normocephalic Oral: Moist Mucosa Neck: Supple, No JVD Lungs: Diminished on the right, Normal air movement, No rhonchi, No wheeze, No rales Cardiovascular: Tachycardic, Regular Rhythm, Normal S1, Normal S2, No murmurs Abdomen: Soft, Non Tender, Non-Distended, No Hepato-splenomegaly Extremities: 2+ pitting bilateral lower extremity edema, Capillary Refill Less than 3 Seconds Skin: No rashes, No breakdown Musculoskeletal: No Tenderness to Palpation of Joints or Extremities Neurological: Cranial nerves II-XII grossly intact, Motor Exam 5/5 strength throughout, Sensory exam intact to light touch and pain Psych/Mental Status: Flat affect Results Lab / Micro Data Result Diagrams: 01/24/23 15:42 01/24/23 15:42 Labs: Laboratory Results - last 24 hr 01/24/23 15:42: WBC 11.7 H, RBC 5.47, Hgb 15.4, Hct 46.7, MCV 85.4, MCH 28.2, MCHC 33.0, RDW Std Deviation 45.1 H, RDW Coeff of Manoj 14.5, Plt Count 297, MPV 11.1, Immature Gran % (Auto) 0.400, Neut % (Auto) 83.9 H, Lymph % (Auto) 6.7 L, Butler % (Auto) 8.6, Eos % (Auto) 0.2, Baso % (Auto) 0.2, Absolute Neuts (auto) 9.8 H, Absolute Lymphs (auto) 0.78 L, Nucleated RBC % 0.3 01/24/23 15:42: Sodium 119 L*, Potassium 4.9, Chloride 83 L, Carbon Dioxide 26.0, Anion Gap 10, BUN 37 H, Creatinine 1.47 H, Estim Creat Clear Calc 54.78, Est GFR (MDRD) Af Amer 62, Est GFR (MDRD) Non-Af 51 L, BUN/Creatinine Ratio 25.2 H, Glucose 116 H, Calcium 8.9 01/24/23 15:42: B-Natriuretic Peptide 1709.4 H 01/24/23 15:42: D-Dimer Quant (PE/DVT) 3.82 H* 01/24/23 15:42: Troponin I High Sens 28 Micro: Microbiology 01/24/23 15:42 Nasal Secretion SARS-CoV-2 Antigen (Rapid) - Final Radiology Impression Chest X-Ray 01/24/23 15:55 IMPRESSION: Right pleural effusion. Cardiomegaly. Electronically Signed: Shlomo Gates DO at 16:09 EDT , Chest CTA 01/24/23 16:48 IMPRESSION: No demonstrated pulmonary embolism or arterial dissection. There is a moderately large right pleural effusion with compression atelectasis of the right lung. Patchy bilateral pulmonary infiltrates. Ascites. Electronically Signed: Shlomo Gates DO at 17:40 EDT , Assessment & Plan Assessment/Plan (1) CHF exacerbation: PLAN: Plan 1. Acute CHF exacerbation unknown type with hypervolemic hyponatremia/HTN/HLD ? He does have a sizable right pleural effusion, will obtain a thoracentesis in the morning with lab studies ? Given the severity of his edema we will place him on a Lasix drip ? It does not appear that he received any Lasix in the ER so we will provide him with a one-time dose of 40 mg of IV Lasix prior to his drip starting ? We will obtain an echo for further evaluation of his CHF and depending on results may need to consult cardiology ? Currently not requiring any oxygen but he does have significant orthopnea, will continue to monitor and make adjustments as necessary ? We will hold his Norvasc for right now given that he will be on a Lasix drip to monitor his blood pressure he has had wide variations in pressure readings 2. GERD ? Stable ? Continue with PPI DVT: Tikinox 78 minutes was spent on direct patient care as well as chart review and collaboration with colleagues Charges/Coding Visit Charges Inpatient E&M: 72326 Init Hosp L3
[2023-01-24] MEDS: Furosemide 40 MG/4 ML Vial IV (19:52)
[2023-01-24] MEDS: 0.9% Saline Lock 10 ML Syringe IV ×2 (19:53→22:10)
--- NOTE | 2023-01-24 19:59 | EDS_ITS ---
HPI History of Present Illness Chief Complaint: Shortness of Breath Narrative Narrative: 61-year-old male presenting shortness of breath. He states he had this for about a month. [facility] He states he was put on Lasix 40 mg p.o. daily and then they increased it to 40 mg p.o. twice daily. He reports that he has not had an echocardiogram. He has not seen a hearing aid technician. He states it is very difficult to follow-up with his PCP and is usually a month out. Patient reports that he has orthopnea and dyspnea on exertion which is worsening. He denies any chest pain. He does admit to significant lower extremity edema. He states that since the Lasix stopped working about 3 days ago he stopped taking Lasix. Now he has worsening dyspnea and states he is not making a lot of urine. Patient denies fever, chills. [facility] Medical History Hypertension Home Medications pantoprazole 40 mg tablet,delayed release 40 mg PO DAILY stomach 05/01/19 [History Last Taken 04/30/19] amlodipine 5 mg tablet 10 mg PO DAILY blood pressure 01/24/23 [History Last Taken Unknown] simvastatin 20 mg tablet 20 mg PO QHS cholesterol 01/24/23 [History Last Taken Unknown] Allergy/AdvReac Type Severity Reaction Status Date / Time lisinopril Allergy Angioedema Verified 09/20/20 18:58 Family History Other Heart disease Surgical History H/O elbow surgery Social History Smoking Status: Former smoker ROS ROS ED Constitutional Constitutional ED: Denies chills, fever(s) or sweats Eyes Eyes: Denies blurry vision or change in vision ENT ENT ED: Denies ear pain or sore throat Cardiovascular Cardiovascular: Reports orthopnea; Denies chest pain, palpitations or racing h eartbeat Respiratory/Chest Respiratory/Chest: Reports dyspnea, dyspnea on exertion and orthopnea; Denies sputum Gastrointestinal Gastrointestinal: Denies abdominal pain, constipation, diarrhea, nausea or vomiting Genitourinary Genitourinary ED: Denies dysuria, hematuria or urinary frequency Musculoskeletal Musculoskeletal: Denies arthralgias, myalgias or neck pain Integumentary Denies abscess, Abrasions or rash Neurologic Neurologic: Denies headache(s), paresthesias or weakness Psychiatric Psychiatric: Denies anxiety, depression, suicidal ideation or suicidal thoughts Endocrine Endocrinology: Denies polydipsia or polyuria EXAM Physical Exam Const Vital Signs: 01/24/23 15:27 01/24/23 15:32 01/24/23 16:01 Temperature 97.0 F L Temperature Source Temporal Pulse Rate 83 Respiratory Rate 20 H Respiratory Effort Short of Breath Respiratory Depth Normal Respiratory Pattern Normal Blood Pressure 103/83 H Blood Pressure Mean 89 Pulse Ox 95 Oxygen Delivery Method Room Air Room Air Room Air 01/24/23 16:32 01/24/23 17:00 01/24/23 18:00 Temperature Temperature Source Pulse Rate 99 Respiratory Rate 18 21 H Respiratory Effort Respiratory Depth Respiratory Pattern Blood Pressure 113/84 H Blood Pressure Mean 93 Pulse Ox 97 Oxygen Delivery Method Room Air 01/24/23 17:50 Temperature 98.4 F Temperature Source Temporal Pulse Rate 99 Respiratory Rate 21 H Respiratory Effort Respiratory Depth Respiratory Pattern Blood Pressure 113/64 Blood Pressure Mean 80 Pulse Ox 94 Oxygen Delivery Method Room Air Positive obese General Appearance ED: NAD; Negative for pallor Nutritional Appearance: obese HEENT Reports dry mucous membranes atraumatic Mouth ED: Yes dry mucous membranes Mouth: dry mucous membranes Eyes PERRL and EOMs intact bilaterally General Eye ED: Negative for pale conjunctiva or scleral icterus Resp Resp Narrative: Slightly tachypneic. Auscultation: diminished lung sounds right throughout Cardio regular rate and regular rhythm Extremity General Extremety ED: Yes edema; Negative for tenderness General Extremity: edema Neuro oriented x3 and CN's II-XII intact bilaterally Motor Exam: strength 5/5 throughout Psych mental status grossly normal Skin no wounds General Skin Exam: Negative for jaundice or pallor MDM MDM MDM Narrative Medical decision making narrative: 62-year-old male presenting with dyspnea on exertion, orthopnea. Has been on Lasix but states that is not helping. He decided to stop this 3 days ago and this is worsened his symptoms. Differential includes CHF, pneumonia, ACS. I suspect highly likely this is CHF. CBC was obtained to assess white blood cell count, hemoglobin, differential. BMP to assess renal function, electrolytes. BNP to assess for CHF. High-sensitivity troponin was obtained to assess heart strain. EKG and chest x-ray were also obtained as well as a D-dimer. EKG looks like atrial fibrillation with a heart rate of 104 bpm without sign of ST elevation or depression my interpretation. Chest x-ray my interpretation a large right pleural effusion as well as cardiomegaly. Patient's high- sensitivity troponin came back at 28. BNP is elevated over 1700. Patient's D-d alfa was elevated at over 3 and the patient had a CTA which did not show any PE or dissection but did show a large pleural effusion, cardiomegaly, ascites. Patient was discussed with the hospitalist as he is likely in heart failure. Impression: 1. CHF 2. Atrial fibrillation Lab Data Labs: Laboratory Results - last 24 hr 01/24/23 01/24/23 01/24/23 15:42 15:42 15:42 WBC 11.7 H RBC 5.47 Hgb 15.4 Hct 46.7 MCV 85.4 MCH 28.2 MCHC 33.0 RDW Std Deviation 45.1 H RDW Coeff of Manoj 14.5 Plt Count 297 MPV 11.1 Immature Gran % (Auto) 0.400 Neut % (Auto) 83.9 H Lymph % (Auto) 6.[address] [place] % (Auto) 8.6 Eos % (Auto) 0.2 Baso % (Auto) 0.2 Absolute Neuts (auto) 9.8 H Absolute Lymphs (auto) 0.78 L Nucleated RBC % 0.3 D-Dimer Quant (PE/DVT) Sodium 119 L* Potassium 4.9 Chloride 83 L Carbon Dioxide 26.0 Anion Gap 10 BUN 37 H Creatinine 1.47 H Estim Creat Clear Calc 54.78 Est GFR (MDRD) Af Amer 62 Est GFR (MDRD) Non-Af 51 L BUN/Creatinine Ratio 25.2 H Glucose 116 H Calcium 8.9 Troponin I High Sens B-Natriuretic Peptide 1709.4 H 01/24/23 01/24/23 15:42 15:42 WBC RBC Hgb Hct MCV MCH MCHC RDW Std Deviation RDW Coeff of Manoj Plt Count MPV Immature Gran % (Auto) Neut % (Auto) Lymph % (Auto) [place] % (Auto) Eos % (Auto) Baso % (Auto) Absolute Neuts (auto) Absolute Lymphs (auto) Nucleated RBC % D-Dimer Quant (PE/DVT) 3.82 H* Sodium Potassium Chloride Carbon Dioxide Anion Gap BUN Creatinine Estim Creat Clear Calc Est GFR (MDRD) Af Amer Est GFR (MDRD) Non-Af BUN/Creatinine Ratio Glucose Calcium Troponin I High Sens 28 B-Natriuretic Peptide Radiography Diagnostic Testing: Clinical Impression(s) from Imaging Studies Chest X-Ray 01/24/23 15:55 IMPRESSION: Right pleural effusion. Cardiomegaly. Electronically Signed: Shlomo Gates DO at 16:09 EDT , Chest CTA 01/24/23 16:48 IMPRESSION: No demonstrated pulmonary embolism or arterial dissection. There is a moderately large right pleural effusion with compression atelectasis of the right lung. Patchy bilateral pulmonary infiltrates. Ascites. Electronically Signed: Shlomo Gates DO at 17:40 EDT , Discharge Plan Disposition Disposition: Acute Care Hospital [facility] Discharge Date/Time: 01/24/23 18:19
--- NOTE | 2023-01-24 21:22 | EKG12_ITS ---
Test Reason : SOB Blood Pressure : / mmHG Vent. Rate : 104 BPM Atrial Rate : 000 BPM P-R Int : 000 ms QRS Dur : 132 ms QT Int : 384 ms P-R-T Axes : 000 -49 102 degrees QTc Int : 504 ms Atrial fibrillation with rapid ventricular response Left axis deviation Non-specific intra-ventricular conduction block Nonspecific T wave abnormality Abnormal ECG Confirmed by FILIPE ROJAS, YOLANDA ([id number]), assistant editor ZEKE DAVIS ([id number]) on 01/25/2023 1:12:43 PM Referred By: NNEKA/LAUREN Confirmed By:NATALYA DENT MD
--- NOTE | 2023-01-24 22:07 | US_ITS ---
STUDY: ABDOMINAL ULTRASOUND -4 quadrants for ascites assessment. REASON FOR VISIT: Male, 62 years old ascites TECHNIQUE: Ultrasound evaluation of the 4 quadrants was performed with real-time and static emjia-scale imaging. TECHNICAL QUALITY: Adequate. COMPARISON: None. FINDINGS: A small amount of free fluid is seen in the upper quadrants bilaterally. US/Abdomen Limited IMPRESSION: Small amount of free fluid is seen in the upper quadrants bilaterally. Electronically Signed: Angel Brown MD at 9:15 EDT ,
[2023-01-24] MEDS: Atorvastatin Calcium 10 MG Tablet PO (22:10)
[2023-01-24] MEDS: Furosemide 500 MG in Empty Viaflex 50 mL 1 EACH CONT INF (22:10)
[2023-01-24] MEDS: Ibuprofen 600 MG Tablet PO (22:53)
[2023-01-24] MEDS: Zolpidem Tartrate 5 MG Tablet PO (22:53)
[2023-01-25] VITALS (20 sets, daily range): BP systolic 88–118; BP diastolic 61–87; PULSE 20–114; RESP 16–107; TEMP 35.9–36.8; O2SAT 90–98; BMI 42.2
--- NOTE | 2023-01-25 | IMM_PTH ---
PATIENT: BLAZE MILLER LOC: [facility] U#:[id number] AGE/SX: 62/M ROOM: [facility] RE01/24/[address]: Dr. Anali Larose DO : 1960 BED: 1 DIS: 02/01/2023 SPEC #: [id number] RECD: 01/26/23 13:20 STATUS: YAMILET REQ #: [id number] CORA: 01/25/23 00:[address]: Anali Larose DEPT: IMMUNOHISTOCHEMISTRY RECD BY: Pamela Harris ENTERED: 01/26/23 13:21 SP TYPE: IMMUNO OTHR DR: MD Dr. Jacques Bennett DO Dr. Lee Ann Baggott, MD Dr. Nicholas F Kotsonis, MD Dr. Nagapradee Nagajothi, MD Dr. Tanmay Panchabhai, MD Christina Muller, MS SQL DBA-C [facility] Tissues: THORACIC FLUID Procedures: Roberto Ret (add) CK5-6 (add) P53 (add) Vimentin (add) Pankeratin (initial) P40 (add) CD68 (ADD) PHYSICIAN & [place] [id number] SPECIMEN INFORMATION: Tissue Source: Thoracentesis fluid Clinical Info: Right pleural effusion Specimen Number: [id number] CPT code: 24760, 00626 x6 METHODOLOGY: Deparaffinized sections of prefer/formalin-fixed tissue or PAP/DQ stained slides are incubated with monoclonal/polyclonal antibodies/oligonucleotide probes. Localization is made via biotin free immunoperoxidase method. Appropriate controls are performed and reacted as expected. Results on target cell population are indicated in the following table: RESULTS: ANTIBODY / CLONE RESULT AE1-3 (AE1/AE3/PCK26) positive Vimentin (V9) positive CD68 (KP-1) positive CALRET (polyclonal) positive CK5-6 (D5 & 1684) positive P40 (BC28) negative P53 (DO-7) negative These tests were developed and their performance characteristics determined by [facility]. They may not have been cleared or approved by the U.S. Food and Drug Administration. The FDA has determined that such clearance or approval is not necessary. The above immunohistochemical/dualISH markers are ordered and reviewed by the Pathologist. INTERPRETATION: Thoracentesis fluid (cell block): No evidence of malignancy. AM:ambreen 01/27/2023
[2023-01-25 06:31] LABS: Absolute Lymphocyte Count 0.91 X10^3/uL (0.83-4.51); Absolute Neutrophil Count 10.9 X10^3/uL (2.0-7.7); Basophil# 0.01 X10^3/uL; Basophil% 0.1 % (0-1); Eosinophil# 0.04 X10^3/uL; Eosinophils% 0.3 % (0-5); Hematocrit 43.6 % (40-54); Hemoglobin 14.8 g/dL (13.0-16.5); Lymphocyte # 0.91 X10^3/ul (0.83-4.51); Mean Corp Hgb Conc 33.9 g/dL (32-36); Mean Corpuscular Hgb 28.8 pg (27.0-32.0); Mean Platelet Vol. 11.3 fl (6.2-12.0); Monocyte# 1.11 X10^3/uL; Monocyte% 8.5 % (0-10); NRBC Flagged by Analyzer 0 % (0-5); Neutrophil # 10.91 X10^3/uL (2.7-7.7); Neutrophil % 83.7 % (47-70); Platelet Count 278 K/mm3 (150-450); RBC Distribution Width CV 14.5 % (11.6-14.6); RBC Distribution Width SD 45.3 fl (35.1-43.9); Red Blood Count 5.13 M/mm3 (4.6-6.2)
[2023-01-25 07:35] LABS: AST(SGOT) 46 U/L (15-37); Alanine Aminotransfer ALT/SGPT 37 U/L (16-61); Albumin, Serum 3.4 g/dL (3.2-5.0); Alkaline Phosphatase 188 U/L (45-117); Anion Gap 10 (5-15); BUN 38 mg/dL (7-18); BUN/Creat Ratio 27.9 RATIO (10-20); Bilirubin, Direct 1.09 mg/dL (0.00-0.30); Calcium,Total 8.8 mg/dL (8.5-10.1); Chloride 84 mmol/L (98-107); Cholesterol 79 mg/dL (200); Creatinine, Serum 1.36 mg/dL (0.70-1.30); EST Glomerular Filtration Rate 56 mL/min (>60); Est Glom Filt Rate - Afr Amer 68 mL/min (>60); Estimated Creatinine Clearance 59.21 ml/min; Globulin 3.7 g/dL (2.2-4.2); Glucose 105 mg/dL (74-106); High Density Lipoprotein 16 mg/dL; LDH 234 U/L (87-241); Potassium 4.5 mmol/L (3.5-5.1); Protein, Total 7.1 g/dL (6.4-8.2); Sodium Level 119 mmol/L (136-145); Triglycerides 72 mg/dL; Very Low Density Lipoprotein 14 mg/dL (5-40)
[2023-01-25] MEDS: Enoxaparin 40 MG/0.4 ML Syringe SC (08:44)
[2023-01-25] MEDS: Pantoprazole Sodium 40 MG Tablet PO (08:45)
--- NOTE | 2023-01-25 10:20 | CASEMGMT ---
RN DAV Face to Face with patient for initial transition planning/care coordination assessment. RN CM introduced self and role at [facility]. Patient lying in bed, alert and oriented. Patient willing to participate in assessment and is able to answer all questions appropriately. Care providers, pharmacy, and demographics verified. Patient wishes to discharge home but is willing to go to SNF if needed. Will monitor progress with therapy. Patient states he has no further needs or concerns at this time. CM to follow for discharge planning needs that may arise. PCP: Blayne MCCAIN Specialists: none Preferred Pharmacy: [facility] Insurance: [employer] Prescription Benefit: yes Living Will/HPOA: none LNOK: brother Living Arrangements: Patient lives alone in a single story home with 4 steps and railing to enter the home. Patient states he is independent at home. Transportation: self, brother DME/HHC: Patient has grab bars at home. Disposition Plan: TBD, HHC vs SNF, will monitor progress with therapy. Allie MOLINA, RN, CM
[2023-01-25] MEDS: Lidocaine 2% (20 ml mdv) 20 ML Vial INFILT (12:20)
--- NOTE | 2023-01-25 12:30 | FLU_PTH ---
PATIENT: BLAZE MILLER LOC: [facility] U#:[id number] AGE/SX: 62/M ROOM: [facility] RE01/24/[address]: Dr. Anali Larose DO : 1960 BED: 1 DIS: 02/01/2023 SPEC #: [id number] RECD: 01/25/23 12:50 STATUS: YAMILET REQ #: [id number] CORA: 01/25/23 12:[address]: Anali Larose DEPT: CYTOLOGY RECD BY: Alyssa Ornelas ENTERED: 01/25/23 13:18 SP TYPE: Fluid OTHR DR: Dr. Toni Guzmán MD [facility] Tissues: Pleural fluid, NOS Procedures: Special Stain Group II Surgery Specimen Level IV Cytospin Fluid HEADER OPERATION: Ultrasound-guided thoracentesis PRE-OP DIAGNOSIS: Right pleural effusion TISSUE SUBMITTED: Thoracentesis fluid for cytology DIAGNOSIS CYTOLOGY Thoracentesis fluid for cytology (cytospin and cell block): Negative for malignant cells. See comment. AM:ambreen 01/26/2023 COMMENT Immunohistochemistry ([id number]) supports the above diagnosis. CYTOLOGY STUDY Slides are reviewed. CYTOLOGY GROSS Received is 90 ml of yellow cloudy fluid labeled with the patient's name and and designated per the requisition as thoracentesis. Submitted for cytology preparation including cell block. / ambreen 01/25/2023 TC:5 CPT: 18359, 36959
--- NOTE | 2023-01-25 12:40 | RAD_ITS ---
STUDY: X-RAY CHEST REASON FOR EXAM: Male, 62 years old. Post thoracentesis TECHNIQUE: AP inspiration and expiration views. COMPARISON: Comparison is made with prior study dated January 24, 2023. FINDINGS: The patient is status post right thoracentesis. There is no evidence of pneumothorax. Residual pleural-parenchymal changes persist. RAD/Chest Insp/Exp 2 View IMPRESSION: Status post right thoracentesis. No evidence of pneumothorax. Electronically Signed: Angel Brown MD at 13:03 EDT ,
[2023-01-25 13:10] LABS: Body Fluid Mononuclear WBC # 0.332 10^3/uL; Body Fluid Mononuclear WBC % 87.1 %; Body Fluid Polynuclear WBC # 0.049 10^3/uL; Body Fluid Polynuclear WBC % 12.9 %; Body Fluid Total Cells Counted 0.456 10^3/ul; White Blood Count/Body Fluid 0.381 10^3/uL
[2023-01-25 13:28] LABS: Appearance/Body Fluid SL CLDY; Auto B Fluid Analyzer BKGD Ct COUNTS W/IN LIMITS (W/IN LIMITS); Color/Body Fluid LT YEL; Source- Body Fluid THORACENTESIS
[2023-01-25 13:36] LABS: Glucose, Body Fluid 108 mg/dL (40-70); LDH,Body Fluid 72 Units/l (Not Establ.); Protein, Body Fluid 2.8 g/dL (Not Establ.)
[2023-01-25 14:03] LABS: Red Cell Count/Body Fluid 102 /mm3
[2023-01-25 14:14] LABS: Body Fluid QC Type(s) BF1Q,BF2Q; Lymphocytes 59 %; Macrophages 11 %; Mesothelial Cells 14 %; Neutrophil (Segs) 16 %
--- NOTE | 2023-01-25 14:59 | PCM.PN.HOSP ---
Reason for Visit Reason for Visit: Swelling/shortness of breath/orthopnea Subjective Subjective Mr. Newman is a 62-year-old white male who presented to emergency department at [facility] on 01/24/2023 with a chief complaint of edema, worsening shortness of breath, and orthopnea. The patient states he has been having some worsening shortness of breath and lower extremity swelling that has been worsening for approximately a month a month and a half ago. He was going to the ID and had some evaluation done in [place]. It sounds as if he had PFTs as an outpatient but it was unclear if he ever had an echocardiogram previously. He was started on Lasix as an outpatient and this was increased but he reported that it was not working as effectively as it had initially. He stopped taking it since he did not feel it was being effective. At the time presentations his temperature was 97, heart rate 83, respiratory rate is 20 and blood pressure was 103/83 with an oxygen saturation of 95% on room air. His CBC was overall unimpressive. Chemistry panel revealed hyponatremia with a sodium of 119, BUN of 37 and serum creatinine of 1.47. His initial troponin was normal however his BNP was found to be 1709.4. Chest x-ray was obtained and was consistent with a large right pleural effusion. CTA was done secondary to elevated D-dimer. CTA showed no PE or arterial dissection but a moderately large right pleural effusion with compression atelectasis, bilateral patchy infiltrates and ascites. He was admitted to the PCU and started on a Lasix drip. Echocardiogram was ordered. This morning the patient states he is feeling a little bit better, but still significantly short of breath and indicates he was told his thoracentesis will be today at 1 PM. He denies any current needs and I discussed with him we will that we will have to wait for his test results and then we could discuss further ongoing plan of care. Objective Data Objective Data Vital Signs: Vital Signs Temp Pulse Resp BP Pulse Ox O2 Del Method 97.8 F 98 16 96/63 94 Room Air 01/25/23 14:18 01/25/23 14:18 01/25/23 14:18 01/25/23 14:18 01/25/23 14:18 01/25/23 14:18 Oxygen Delivery Method [3] Room Air Oxygen Delivery Method [2] Room Air Oxygen Delivery Method [1 ( Room Air Initial Baseline)] Oxygen Delivery Method Room Air Weight: 137.3 kg Body Mass Index (BMI) 42.2 Intake & Output: Intake and Output for Last 24 Hours 01/23/23 01/24/23 01/25/23 23:59 23:59 23:59 Intake Total 220 / 220 426.95 / 426.95 Output Total 850 / 850 2800 / 2800 Balance -630 / -630 -2373.05 / -2373.05 Lab / Micro Data Result Diagrams: 01/25/23 06:10 01/25/23 06:10 Labs: Laboratory Results - last 24 hr 01/24/23 15:42: WBC 11.7 H, RBC 5.47, Hgb 15.4, Hct 46.7, MCV 85.4, MCH 28.2, MCHC 33.0, RDW Std Deviation 45.1 H, RDW Coeff of Manoj 14.5, Plt Count 297, MPV 11.1, Immature Gran % (Auto) 0.400, Neut % (Auto) 83.9 H, Lymph % (Auto) 6.7 L, [place] % (Auto) 8.6, Eos % (Auto) 0.2, Baso % (Auto) 0.2, Absolute Neuts (auto) 9.8 H, Absolute Lymphs (auto) 0.78 L, Nucleated RBC % 0.3 01/24/23 15:42: Sodium 119 L*, Potassium 4.9, Chloride 83 L, Carbon Dioxide 26.0, Anion Gap 10, BUN 37 H, Creatinine 1.47 H, Estim Creat Clear Calc 54.78, Est GFR (MDRD) Af Amer 62, Est GFR (MDRD) Non-Af 51 L, BUN/Creatinine Ratio 25.2 H, Glucose 116 H, Calcium 8.9 01/24/23 15:42: B-Natriuretic Peptide 1709.4 H 01/24/23 15:42: D-Dimer Quant (PE/DVT) 3.82 H* 01/24/23 15:42: Troponin I High Sens 28 01/25/23 06:10: WBC 13.0 H, RBC 5.13, Hgb 14.8, Hct 43.6, MCV 85.0, MCH 28.8, MCHC 33.9, RDW Std Deviation 45.3 H, RDW Coeff of Manoj 14.5, Plt Count 278, MPV 11.3, Immature Gran % (Auto) 0.400, Neut % (Auto) 83.7 H, Lymph % (Auto) 7.0 L, [place] % (Auto) 8.5, Eos % (Auto) 0.3, Baso % (Auto) 0.1, Absolute Neuts (auto) 10.9 H, Absolute Lymphs (auto) 0.91, Nucleated RBC % 0 01/25/23 06:10: Sodium 119 L*, Potassium 4.5, Chloride 84 L, Carbon Dioxide 25.0, Anion Gap 10, BUN 38 H, Creatinine 1.36 H, Estim Creat Clear Calc 59.21, Est GFR (MDRD) Af Amer 68, Est GFR (MDRD) Non-Af 56 L, BUN/Creatinine Ratio 27.9 H, Glucose 105, Calcium 8.8, Total Bilirubin 1.60 H, Direct Bilirubin 1.09 H, AST 46 H, ALT 37, Alkaline Phosphatase 188 H, Lactate Dehydrogenase 234, Total Protein 7.1, Albumin 3.4, Globulin 3.7, Triglycerides 72, Cholesterol 79, LDL Cholesterol 49, VLDL Cholesterol 14, HDL Cholesterol 16 L 01/25/23 12:30: Fluid Glucose 108 H, Fluid Total Protein 2.8, Fluid LDH 72 01/25/23 12:30: Fluid Source THORACENTESIS, Fluid Color LT YEL, Fluid Appearance SL CLDY, Fluid WBC 0.381, Fluid RBC 102, Fluid Tot Cell Count 0.456, Fld Polynuclear WBCs # 0.049, Fld Polynuclear WBCs % 12.9, Fluid Mononuclear WBCs 0.332, Fld Mononuclear WBCs % 87.1, Fluid Neutrophils 16, Fluid Lymphocytes 59, Fluid Macrophages 11, Fld Mesothelial Cells 14, Fl Pathologist Comment May follow, Fluid Comment 2 SEE COMMENT Micro: Microbiology 01/24/23 15:42 Nasal Secretion SARS-CoV-2 Antigen (Rapid) - Final Radiography Diagnostic Testing: Radiology Impression Chest X-Ray 01/24/23 15:55 IMPRESSION: Right pleural effusion. Cardiomegaly. Electronically Signed: Shlomo Gates DO at 16:09 EDT Reading Location ID and State: [facility] / [place] Tel [phone], Service support , Chest CTA 01/24/23 16:48 IMPRESSION: No demonstrated pulmonary embolism or arterial dissection. There is a moderately large right pleural effusion with compression atelectasis of the right lung. Patchy bilateral pulmonary infiltrates. Ascites. Electronically Signed: Shlomo Gates DO at 17:40 EDT , Echocardiogram 01/24/23 18:26 Interpretation Summary Moderately dilated left ventricle. The estimated ejection fraction is 20 %. Stage 3 diastolic dysfunction. There is severe global hypokinesis of the left ventricle. The right atrium is severely enlarged. Ordering Physician: Toni Guzmán Referring Physician: [facility] Performed By: Hailey Singh RCS Abdomen Ultrasound 01/24/23 22:07 IMPRESSION: Small amount of free fluid is seen in the upper quadrants bilaterally. Electronically Signed: Angel Brown MD at 9:15 EDT , Chest X-Ray 01/25/23 12:40 IMPRESSION: Status post right thoracentesis. No evidence of pneumothorax. Electronically Signed: Angel Brown MD at 13:03 EDT , Thoracentesis Ultrasound 01/25/23 18:26 IMPRESSION: Ultrasound-guided right thoracentesis. Electronically Signed: Angel Brown MD at 13:09 EDT , Physical Exam Const alert, oriented x3 and well nourished; Negative for average body habitus or healthy appearing Constitutional Narrative: Morbidly obese, upper middle-aged, white male, appears older than stated age, nontoxic,, appropriately interactive HEENT head/scalp atraumatic and moist oral mucous membranes HEENT Narrative: Dentition is poor, Mallampati is 3, no thrush Head and Scalp: normocephalic Eyes PERRL, EOMs intact bilaterally and conjunctivae normal Eyes Narrative: No scleral icterus Neck no lymphadenopathy and supple Neck Narrative: Positive JVD, trachea midline, no thyroid enlargement Resp No normal respiratory effort, no retractions, no use of accessory muscles and No clear to auscultation bilaterally Resp Narrative: Markedly diminished breath sounds at the right base to upper two thirds of the right lung field, scattered wheezing on the left, mild tachypnea with no signs of extremis, currently on 2 L nasal cannula Auscultation: wheezes; Negative for rales or rhonchi Cardio regular rate, regular rhythm, S1 normal heart sound, S2 normal heart sound, no murmurs, no rub and no clicks; Negative for no gallops Cardio Narrative: Positive S3 GI normal to inspection, nondistended, normoactive bowel sounds and soft to palpation Extremity Extremity Narrative: 3+ bilateral lower extremity pitting edema that extends up towards his hips and into his abdomen, no cyanosis or clubbing Neuro oriented x3, moves all extremities and no focal motor deficits Speech: speech normal Psych Psych Narrative: Affect is flat and mood seems somewhat depressed Assessment & Plan Assessment/Plan (1) Heart failure, systolic, with acute decompensation: (2) Ascites: (3) Pleural effusion: (4) Orthopnea: (5) Elevated d-dimer: (6) Hyponatremia: (7) Elevated serum creatinine: (8) Hyperbilirubinemia: (9) Heart failure, systolic, with acute decompensation: (10) Heart failure, diastolic, with acute decompensation: (11) Anasarca: PLAN: Plan Acute decompensated systolic/diastolic heart failure -Newly diagnosed -Echocardiogram has resulted and shows an EF of 20%, global dysfunction with stage III diastolic dysfunction, mild left atrial enlargement, severe right atrial enlargement, mild to moderate mitral valve insufficiency, mild to moderate tricuspid valve insufficiency, pulmonary systolic pressure is 20 mmHg, severe global hypokinesis of the LV -Due to blood pressure, at this time I am not able to really initiate any goal-directed therapy as systolics are in the 90s. -I am hoping that once we get him back on the Starling curve that we may be able to initiate low-dose carvedilol -Unable to utilize RAMAN or ARB secondary to history of angioedema--> will need to consider hydralazine and nitrate if blood pressure will tolerate -We will consider addition of Aldactone if blood pressure tolerates in the future -Jardiance initiated -Continue Lasix drip -Continue strict I's and O's -Check daily weights -Continue fluid restriction and add sodium restriction -Dietitian education for heart failure appropriate diet -Consult cardiology--> patient will likely need cardiac catheterization prior to discharge Large right pleural effusion -Thoracentesis performed today for removal of 2100 cc of fluid -Breathing status is much improved -We will need to monitor for recurrence -Continue diuresis Elevated serum creatinine -Baseline is unknown -1.47 on admission and down to 1.36 with diuresis -I suspect he is off the Starling curve therefore has cardiorenal syndrome -Repeat BMP in a.m. -Avoid nephrotoxins as able Hyponatremia -Hypervolemic hyponatremia secondary to CHF -Continue diuresis -I anticipate with ongoing fluid removal that his sodium should improve -If sodium does not improve with diuresis and fluid removal will need further work-up Anasarca -Secondary above -Monitor clinically Hyperbilirubinemia -I anticipate this is related to chronic passive congestion of the liver -Should trend down with diuresis -Continue to monitor Elevated D-dimer -CTA of the chest was negative for PE -Check bilateral lower extremity Dopplers to rule out DVT Ascites -Minimal on ultrasound -Review of the liver was not performed I will need to discuss with radiology however I do anticipate that his ascites is related to his heart failure at this point Hyperlipidemia -LDL is at goal -Continue current statin Hypertension -Hold amlodipine -Blood pressures on the low side of normal at this time GERD -Continue Protonix Morbid obesity -Some of his weight is volume related and should improve with diuresis however he meets criteria for obesity at least at baseline -Current BMI is 42.2 -Daily weights ordered with diuresis -Recommend weight loss -Complicates treatment, prognosis, outcomes History of alcohol abuse -Remote History of tobacco abuse -No current use -Recommend ongoing cessation DVT prophylaxis -Continue enoxaparin daily CODE STATUS Full code Charges/Coding Visit Charges Inpatient E&M: 18532 Subs Hosp L3
--- NOTE | 2023-01-25 15:16 | VDLE_ITS ---
Reason For Study: Elevated D Dimer RIGHT LEFT CFV is compressible, spontaneous, competent CFV is compressible, spontaneous, competent, and demonstrates pulsatile venous flow. and demonstrates pulsatile venous flow. FV is compressible, spontaneous, competent FV is compressible, spontaneous, competent and demonstrates pulsatile venous flow. and demonstrates pulsatile venous flow. POP V is compressible, spontaneous, competent POP V is compressible, spontaneous, competent and demonstrates pulsatile venous flow. and demonstrates pulsatile venous flow. T/P Trunk is compressible. T/P Trunk is compressible. PTV is compressible. PTV is compressible. RT PerV is compressible. LT PerV is compressible. Procedure Exam performed portable in patient room. The exam was diagnostic. Technically difficult study due to swelling and edema. A preliminary report was called and/or faxed to [facility] Responsible for patient. VL/Venous Duplex US - Lucas Extrem Interpretation Summary No evidence for acute deep venous thrombosis bilateral lower extremities with p atent and compressible bilateral great saphenous veins. Pulsatile venous flow is noted bi laterally consistent with proximal venous hypertension or obstruction. Clinical correlation would be appropriate Examination was noted to be technically difficult due to swelling Ordering Physician: Anali Larose Referring Physician: [facility] Performed By: Maxi Gates RVT
[2023-01-25] MEDS: Empagliflozin 10 MG Tablet PO (16:34)
--- NOTE | 2023-01-25 17:32 | RAD_ITS ---
STUDY: X-RAY CHEST REASON FOR EXAM: Male, 62 years old. SOB, post thoracentesis TECHNIQUE: Single AP portable view of the chest. COMPARISON: Same day 12:44 PM. FINDINGS: There is focal pulmonary opacification in the lower right lung, new since prior exam. Stable left perihilar pulmonary density. Stable possible small right pleural effusion. Stable cardiomegaly. RAD/Chest 1 View (Portable) IMPRESSION: Since prior study of earlier today, focal pulmonary opacity has developed in the lower right lung. Electronically Signed: Marquez Bustamante MD at 17:51 EDT ,
--- NOTE | 2023-01-25 18:26 | US_ITS ---
PROCEDURE: ULTRASOUND GUIDED THORACENTESIS. DATE: January 25, 2023. INDICATION: Male, 62 years old. Right pleural effusion. PHYSICIAN: Angel Brown M.D. PROCEDURE: The risks, benefits, and alternatives to the procedure were explained to the patient. The specific risks of bleeding, infection, and pneumothorax requiring chest tube insertion were discussed and accepted. Written informed consent was obtained. Ultrasonographic evaluation of the right lower pleural space was carried out. An adequate pocket was identified. The patient was placed in the sitting, upright position. The overlying skin was prepped and draped in sterile fashion. 1% lidocaine was administered subcutaneously for local anesthesia. Under ultrasound guidance, a 5 Marshallese thoracentesis needle/catheter system was advanced into the right posterior lower pleural fluid collection. Approximately 2100 mL of bhavik-colored fluid was drained. The catheter was removed, and a sterile dressing was applied. A specimen was collected and sent to the laboratory for analysis, as requested by the referring clinician. The patient tolerated the procedure well. A chest x-ray was ordered. US/Thoracentesis W US IMPRESSION: Ultrasound-guided right thoracentesis. Electronically Signed: Angel Brown MD at 13:09 EDT ,
[2023-01-25] MEDS: Ipratropium/Albuterol Sulfate 3 ML AMPUL.NEB INHALATION (20:31)
--- NOTE | 2023-01-25 20:59 | PCM.PN.BLA ---
Progress Note Patient with new opacity in right lower lungs per chest x-ray. Nurse reported patient is requiring high flow oxygen. And patient is coughing. Vancomycin and Zosyn ordered. Check MRSA nasal screen. Mucinex ordered.
[2023-01-25] MEDS: Atorvastatin Calcium 10 MG Tablet PO (21:31)
[2023-01-25] MEDS: 0.9% Saline Lock 10 ML Syringe IV (21:43)
[2023-01-25] MEDS: guaiFENesin 1,200 MG Tablet 1200 MG PO (22:46)
[2023-01-25] MEDS: MELATONIN 10 MG TABLET PO (22:46)
[2023-01-25 22:54] LABS: M R Staph aureus DNA By PCR Negative (Negative); Probe Check PASS; Specimen Processing Control PASS
[2023-01-26] VITALS (33 sets, daily range): BP systolic 66–129; BP diastolic 52–91; PULSE 56–111; RESP 12–20; TEMP 36–36.8; O2SAT 18–100; BMI 40.4
[2023-01-26] MEDS: Furosemide 500 MG in Empty Viaflex 50 mL 1 EACH CONT INF (01:08)
[2023-01-26] MEDS: Ibuprofen 600 MG Tablet PO (01:10)
--- NOTE | 2023-01-26 04:40 | PCM.RX.CS ---
Consult Pharmacy has been consulted to manage selected antiobiotic: Vancomycin Type of Consult: New start Labs: Sodium 119 mmol/L (136-145) L* 01/25/23 06:10 Potassium 4.5 mmol/L (3.5-5.1) 01/25/23 06:10 Chloride 84 mmol/L (98-107) L 01/25/23 06:10 Carbon Dioxide 25.0 mmol/L (21.0-32.0) 01/25/23 06:10 Anion Gap 10 (5-15) 01/25/23 06:10 BUN 38 mg/dL (7-18) H 01/25/23 06:10 Creatinine 1.36 mg/dL (0.70-1.30) H 01/25/23 06:10 Est GFR (MDRD) Af Amer 68 mL/min (>60) 01/25/23 06:10 Est GFR (MDRD) Non-Af 56 mL/min (>60) L 01/25/23 06:10 BUN/Creatinine Ratio 27.9 RATIO (10-20) H 01/25/23 06:10 Glucose 105 mg/dL (74-106) 01/25/23 06:10 Microbiology: Microbiology 01/24/23 15:42 Nasal Secretion SARS-CoV-2 Antigen (Rapid) - Final Goal Trough: 15-20 mcg/mL Pharmacy Plan for Drug Dosing: Pharmacy Service will continue to monitor and adjust dosing as required. Medications Vancomycin HCl 1,750 mg/ (Sodium Chloride) 535 mls @ 250 mls/hr IV Q12H MARTINA Discontinued Medications Vancomycin HCl 2,000 mg/ (Sodium Chloride) 540 mls @ 250 mls/hr IV X1 ONE Stop: 01/25/23 23:11 Last Admin: 01/26/23 01:13 Dose: Infused Follow-Up Labs: Trough Vancomycin Labs to be done on [date and time ordered]: 01/27 @ 1030
[2023-01-26 05:25] LABS: Absolute Lymphocyte Count 0.61 X10^3/uL (0.83-4.51); Basophil# 0.01 X10^3/uL; Basophil% 0.1 % (0-1); Eosinophil# 0.11 X10^3/uL; Eosinophils% 0.7 % (0-5); Hematocrit 43.4 % (40-54); Hemoglobin 14.7 g/dL (13.0-16.5); Lymphocyte # 0.61 X10^3/ul (0.83-4.51); Lymphocyte % 3.6 % (19-41); Mean Corp Hgb Conc 33.9 g/dL (32-36); Mean Corpuscular Hgb 28.4 pg (27.0-32.0); Mean Corpuscular Volume 83.9 fL (80-94); Mean Platelet Vol. 11.2 fl (6.2-12.0); Monocyte% 5.4 % (0-10); NRBC Flagged by Analyzer 0 % (0-5); Neutrophil % 89.7 % (47-70); Platelet Count 219 K/mm3 (150-450); RBC Distribution Width CV 14.6 % (11.6-14.6); RBC Distribution Width SD 44.5 fl (35.1-43.9); Red Blood Count 5.17 M/mm3 (4.6-6.2); White Blood Count 16.7 K/mm3 (4.4-11.0)
[2023-01-26] MEDS: 0.9% Saline Lock 10 ML Syringe IV (05:36)
[2023-01-26 06:00] LABS: ALB/GLOB Ratio 0.8 RATIO (0.9-2.4); AST(SGOT) 46 U/L (15-37); Alanine Aminotransfer ALT/SGPT 35 U/L (16-61); Albumin, Serum 2.8 g/dL (3.2-5.0); Alkaline Phosphatase 173 U/L (45-117); Anion Gap 12 (5-15); BUN 39 mg/dL (7-18); BUN/Creat Ratio 27.5 RATIO (10-20); Calcium,Total 7.9 mg/dL (8.5-10.1); Chloride 89 mmol/L (98-107); Creatinine, Serum 1.42 mg/dL (0.70-1.30); EST Glomerular Filtration Rate 53 mL/min (>60); Est Glom Filt Rate - Afr Amer 65 mL/min (>60); Estimated Creatinine Clearance 56.71 ml/min; Globulin 3.5 g/dL (2.2-4.2); Glucose 108 mg/dL (74-106); Magnesium 2.3 mg/dL (1.6-2.6); Phosphorus 4.5 mg/dL (2.5-4.9); Protein, Total 6.3 g/dL (6.4-8.2); Sodium Level 122 mmol/L (136-145); Thyroid Stim Hormone (TSH) 1.25 uIU/mL (0.358-3.74)
[2023-01-26] MEDS: Ipratropium/Albuterol Sulfate 3 ML AMPUL.NEB INHALATION (07:31)
--- NOTE | 2023-01-26 07:46 | CT_ITS ---
STUDY: CT CHEST WITHOUT CONTRAST REASON FOR EXAM: Male, 62 years old. Abn CXR RADIATION DOSAGE (If Supplied By Facility): CTDIvol = ( 19.99 ) mGy, DLP = ( 749.34 ) mGycm TECHNIQUE: Transaxial imaging was performed without the administration of intravenous contrast material. Multiplanar coronal and sagittal images were reformatted. Individualized dose optimization techniques were used for this CT. COMPARISON: Comparison is made with prior examination dated January 24, 2023. FINDINGS: CHEST Small benign-appearing bilateral axillary lymph nodes. Stable areas of groundglass appearance in both upper lobes. Since prior study, there is evidence of a consolidation in the right middle lobe as well as the right lower lobe. Small residual right pleural effusion. There are calcifications of the coronary arteries. There are multiple small lymph nodes within the mediastinum, which are normal in size and morphology most compatible with reactive lymph hyperplasia. Normal hilar regions. Normal unenhanced pulmonary arteries. There is atherosclerotic calcification of the aortic arch with tortuosity and elongation of the aortic arch and descending thoracic aorta. There are degenerative changes of the thoracic spine. Perihepatic and perisplenic fluid. CT/Chest without Contrast IMPRESSION: Progressive infiltration in the right middle lobe and right lower lobe. Small residual right pleural effusion. Stable bilateral areas of groundglass appearance in the upper lobes. Minimal pleural thickening at the left lung base. Ascites. Electronically Signed: Angel Brown MD at 9:33 EDT ,
[2023-01-26] MEDS: Empagliflozin 10 MG Tablet PO (10:21)
[2023-01-26] MEDS: Enoxaparin 40 MG/0.4 ML Syringe SC (10:22)
[2023-01-26] MEDS: guaiFENesin 1,200 MG Tablet 1200 MG PO (10:22)
[2023-01-26] MEDS: Pantoprazole Sodium 40 MG Tablet PO (10:22)
[2023-01-26] MEDS: Metoprolol Tartrate 25 MG Tablet 12.5 MG PO (11:35)
--- NOTE | 2023-01-26 11:40 | PN.HOSP_ITS ---
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) Hypo-osmolality and hyponatremia (01/24/23) Acute on chronic systolic (congestive) heart failure (01/24/23) Acute on chronic diastolic (congestive) heart failure (01/24/23) Heart failure, unspecified (01/24/23) Pleural effusion, not elsewhere classified (01/24/23) Orthopnea (01/24/23) Other ascites (01/24/23) Generalized edema (01/24/23) Other specified abnormal findings of blood chemistry (01/24/23) Objective Data Objective Data Vital Signs: Vital Signs Temp Pulse Resp BP Pulse Ox O2 Del Method O2 Flow Rate 98.3 F 98 18 99/82 H 94 Nasal Cannula 4 01/26/23 10:40 01/26/23 11:35 01/26/23 10:40 01/26/23 10:40 01/26/23 10:40 01/26/23 10:40 01/26/23 10:40 Oxygen Flow Rate (L/min) 4 Oxygen Delivery Method [3] Room Air Oxygen Delivery Method [2] Room Air Oxygen Delivery Method [1 ( Room Air Initial Baseline)] Oxygen Delivery Method Nasal Cannula Weight: 131.4 kg Body Mass Index (BMI) 40.4 Intake & Output: Intake and Output for Last 24 Hours 01/24/23 01/25/23 01/26/23 23:59 23:59 23:59 Intake Total 220 / 220 746.95 / 986.95 953.77 / 953.77 Output Total 850 / 850 3150 / 4050 2200 / 2200 Balance -630 / -630 -2403.05 / -3063.05 -1246.23 / -1246.23 Lab / Micro Data Result Diagrams: 01/26/23 05:00 01/26/23 05:00 Labs: Laboratory Results - last 24 hr 01/25/23 12:30: Fluid Glucose 108 H, Fluid Total Protein 2.8, Fluid LDH 72 01/25/23 12:30: Fluid Source THORACENTESIS, Fluid Color LT YEL, Fluid Appearance SL CLDY, Fluid WBC 0.381, Fluid RBC 102, Fluid Tot Cell Count 0.456, Fld Polynuclear WBCs # 0.049, Fld Polynuclear WBCs % 12.9, Fluid Mononuclear WBCs 0.332, Fld Mononuclear WBCs % 87.1, Fluid Neutrophils 16, Fluid Lymphocytes 59, Fluid Macrophages 11, Fld Mesothelial Cells 14, Fl Pathologist Comment May follo w, Fluid Comment 2 SEE COMMENT 01/25/23 21:18: MRSA (PCR) Negative 01/26/23 05:00: WBC 16.7 H, RBC 5.17, Hgb 14.7, Hct 43.4, MCV 83.9, MCH 28.4, MCHC 33.9, RDW Std Deviation 44.5 H, RDW Coeff of Manoj 14.6, Plt Count 219, MPV 11.2, Immature Gran % (Auto) 0.500, Neut % (Auto) 89.7 H, Lymph % (Auto) 3.6 L, [place] % (Auto) 5.4, Eos % (Auto) 0.7, Baso % (Auto) 0.1, Absolute Neuts (auto) 15.0 H, Absolute Lymphs (auto) 0.61 L, Nucleated RBC % 0 01/26/23 05:00: Sodium 122 L, Potassium 4.0, Chloride 89 L, Carbon Dioxide 21.0, Anion Gap 12, BUN 39 H, Creatinine 1.42 H, Estim Creat Clear Calc 56.71, Est GFR (MDRD) Af Amer 65, Est GFR (MDRD) Non-Af 53 L, BUN/Creatinine Ratio 27.5 H, Glucose 108 H, Calcium 7.9 L, Phosphorus 4.5, Magnesium 2.3, Total Bilirubin 1.80 H, AST 46 H, ALT 35, Alkaline Phosphatase 173 H, Total Protein 6.3 L, Albumin 2.8 L, Globulin 3.5, Albumin/Globulin Ratio 0.8 L, TSH 1.25 Micro: Microbiology 01/24/23 15:42 Nasal Secretion SARS-CoV-2 Antigen (Rapid) - Final Radiography Diagnostic Testing: Radiology Impression Echocardiogram 01/24/23 18:26 Interpretation Summary Moderately dilated left ventricle. The estimated ejection fraction is 20 %. Stage 3 diastolic dysfunction. There is severe global hypokinesis of the left ventricle. The right atrium is severely enlarged. Ordering Physician: Toni Guzmán Referring Physician: [facility] Performed By: Hailey Singh RCS Chest X-Ray 01/25/23 12:40 IMPRESSION: Status post right thoracentesis. No evidence of pneumothorax. Electronically Signed: Angel Brown MD at 13:03 EDT , Venous Doppler Study 01/25/23 15:16 Interpretation Summary No evidence for acute deep venous thrombosis bilateral lower extremities with patent and compressible bilateral great saphenous veins. Pulsatile venous flow is noted bilaterally consistent with proximal venous hypertension or obstruction. Clinical correlation would be appropriate Examination was noted to be technically difficult due to swelling Ordering Physician: Anali Larose Referring Physician: [facility] Performed By: Maxi Gates, VASYLT Chest X-Ray 01/25/23 17:32 IMPRESSION: Since prior study of earlier today, focal pulmonary opacity has developed in the lower right lung. Electronically Signed: Marquez Bustamante MD at 17:51 EDT , Thoracentesis Ultrasound 01/25/23 18:26 IMPRESSION: Ultrasound-guided right thoracentesis. Electronically Signed: Angel Brown MD at 13:09 EDT , Chest CT 01/26/23 07:46 IMPRESSION: Progressive infiltration in the right middle lobe and right lower lobe. Small residual right pleural effusion. Stable bilateral areas of groundglass appearance in the upper lobes. Minimal pleural thickening at the left lung base. Ascites. Electronically Signed: Angel Brown MD at 9:33 EDT , Physical Exam Narrative General: Alert, Oriented x3, Cooperative, No apparent distress HEENT: Atraumatic, PERRLA, EOMI, Normocephalic Oral: Moist Mucosa Neck: Supple, No JVD Lungs: Diminished on the right, Normal air movement, No rhonchi, No wheeze, No rales Cardiovascular: Tachycardic, Regular Rhythm, Normal S1, Normal S2, No murmurs Abdomen: Soft, Non Tender, Non-Distended, No Hepato-splenomegaly Extremities: 2+ pitting bilateral lower extremity edema, Capillary Refill Less than 3 Seconds Skin: No rashes, No breakdown Musculoskeletal: No Tenderness to Palpation of Joints or Extremities Neurological: Cranial nerves II-XII grossly intact, Motor Exam 5/5 strength throughout, Sensory exam intact to light touch and pain Psych/Mental Status: Flat affect Const alert, oriented x3 and well nourished; Negative for average body habitus or healthy appearing Constitutional Narrative: Morbidly obese, upper middle-aged, white male, appears older than stated age, nontoxic,, appropriately interactive HEENT head/scalp atraumatic and moist oral mucous membranes Eyes PERRL, EOMs intact bilaterally and conjunctivae normal Eyes Narrative: No scleral icterus Neck no lymphadenopathy and supple Neck Narrative: Positive JVD, trachea midline, no thyroid enlargement Resp No normal respiratory effort, no retractions, no use of accessory muscles and No clear to auscultation bilaterally Resp Narrative: Markedly diminished breath sounds at the right base to upper two thirds of the right lung field, scattered wheezing on the left, mild tachypnea with no signs of extremis, currently on 2 L nasal cannula Auscultation: wheezes; Negative for rales or rhonchi Cardio regular rate, regular rhythm, S1 normal heart sound, S2 normal heart sound, no murmurs, no rub and no clicks; Negative for no gallops Cardio Narrative: Positive S3 GI normal to inspection, nondistended, normoactive bowel sounds and soft to palpation Extremity Extremity Narrative: 3+ bilateral lower extremity pitting edema that extends up towards his hips and into his abdomen, no cyanosis or clubbing Neuro oriented x3, moves all extremities and no focal motor deficits Speech: speech normal Psych Psych Narrative: Affect is flat and mood seems somewhat depressed Assessment & Plan Assessment/Plan (1) Heart failure, systolic, with acute decompensation: (2) Ascites: (3) Pleural effusion: (4) Orthopnea: (5) Elevated d-dimer: (6) Hyponatremia: (7) Elevated serum creatinine: (8) Hyperbilirubinemia: (9) Heart failure, diastolic, with acute decompensation: (10) Anasarca: (11) Paroxysmal atrial fibrillation with RVR: PLAN: Plan Acute decompensated systolic/diastolic heart failure -Newly diagnosed -Echocardiogram has resulted and shows an EF of 20%, global dysfunction with stage III diastolic dysfunction, mild left atrial enlargement, severe right a trial enlargement, mild to moderate mitral valve insufficiency, mild to moderate tricuspid valve insufficiency, pulmonary systolic pressure is 20 mmHg, severe global hypokinesis of the LV -Due to blood pressure, at this time I am not able to really initiate any goal- directed therapy as systolics are in the 90s. -I am hoping that once we get him back on the Starling curve that we may be able to initiate low-dose carvedilol -Unable to utilize RAMAN or ARB secondary to history of angioedema--> will need to consider hydralazine and nitrate if blood pressure will tolerate -We will consider addition of Aldactone if blood pressure tolerates in the future -Jardiance initiated -Continue Lasix drip -Continue strict I's and O's -Check daily weights -Continue fluid restriction and add sodium restriction -Dietitian education for heart failure appropriate diet -Consult cardiology--> patient will likely need cardiac catheterization prior to discharge Large right pleural effusion -Thoracentesis performed today for removal of 2100 cc of fluid -Breathing status is much improved -We will need to monitor for recurrence -Continue diuresis A-fib with RVR -EKG on presentation shows A-fib with RVR -Heart rates overall have been fairly well controlled under 100 -BPs are bit better so we will start low-dose beta-tj at 12.5 mg of metoprolol twice daily and assess for tolerance -Hold anticoagulation until evaluated by cardiology Elevated serum creatinine -Baseline is unknown -1.47 on admission and down to 1.36 with diuresis -I suspect he is off the Starling curve therefore has cardiorenal syndrome -Repeat BMP in a.m. -Avoid nephrotoxins as able Hyponatremia -Hypervolemic hyponatremia secondary to CHF -Continue diuresis -I anticipate with ongoing fluid removal that his sodium should improve -If sodium does not improve with diuresis and fluid removal will need further work-up Anasarca -Secondary above -Monitor clinically Hyperbilirubinemia -I anticipate this is related to chronic passive congestion of the liver -Should trend down with diuresis -Continue to monitor Elevated D-dimer -CTA of the chest was negative for PE -Check bilateral lower extremity Dopplers to rule out DVT Ascites -Minimal on ultrasound -Review of the liver was not performed I will need to discuss with radiology however I do anticipate that his ascites is related to his heart failure at this point Hyperlipidemia -LDL is at goal -Continue current statin Hypertension -Hold amlodipine -Blood pressures on the low side of normal at this time GERD -Continue Protonix Morbid obesity -Some of his weight is volume related and should improve with diuresis however he meets criteria for obesity at least at baseline -Current BMI is 42.2 -Daily weights ordered with diuresis -Recommend weight loss -Complicates treatment, prognosis, outcomes History of alcohol abuse -Remote History of tobacco abuse -No current use -Recommend ongoing cessation DVT prophylaxis -Continue enoxaparin daily CODE STATUS Full code for further cardiac work-up needs
--- NOTE | 2023-01-26 11:40 | PCM.PN.HOSP ---
Reason for Visit Reason for Visit: Shortness of breath Subjective Subjective Patient became hypoxic after thoracentesis. No pneumothorax identified but patient did have a pretty significant right lower lobe infiltrate that was obscured by fluid previously. Not requiring oxygen. States he is coughing some with intermittent sputum production. No recent hospitalization. No other specific complaints. Objective Data Objective Data Vital Signs: Vital Signs Temp Pulse Resp BP Pulse Ox O2 Del Method O2 Flow Rate 98.3 F 98 18 99/82 H 94 Nasal Cannula 4 01/26/23 10:40 01/26/23 11:35 01/26/23 10:40 01/26/23 10:40 01/26/23 10:40 01/26/23 10:40 01/26/23 10:40 Oxygen Flow Rate (L/min) 4 Oxygen Delivery Method [3] Room Air Oxygen Delivery Method [2] Room Air Oxygen Delivery Method [1 ( Room Air Initial Baseline)] Oxygen Delivery Method Nasal Cannula Weight: 131.4 kg Body Mass Index (BMI) 40.4 Intake & Output: Intake and Output for Last 24 Hours 01/24/23 01/25/23 01/26/23 23:59 23:59 23:59 Intake Total 220 / 220 746.95 / 986.95 953.77 / 953.77 Output Total 850 / 850 3150 / 4050 2200 / 2200 Balance -630 / -630 -2403.05 / -3063.05 -1246.23 / -1246.23 Lab / Micro Data Result Diagrams: 01/26/23 05:00 01/26/23 05:00 Labs: Laboratory Results - last 24 hr 01/25/23 12:30: Fluid Glucose 108 H, Fluid Total Protein 2.8, Fluid LDH 72 01/25/23 12:30: Fluid Source THORACENTESIS, Fluid Color LT YEL, Fluid Appearance SL CLDY, Fluid WBC 0.381, Fluid RBC 102, Fluid Tot Cell Count 0.456, Fld Polynuclear WBCs # 0.049, Fld Polynuclear WBCs % 12.9, Fluid Mononuclear WBCs 0.332, Fld Mononuclear WBCs % 87.1, Fluid Neutrophils 16, Fluid Lymphocytes 59, Fluid Macrophages 11, Fld Mesothelial Cells 14, Fl Pathologist Comment May follow, Fluid Comment 2 SEE COMMENT 01/25/23 21:18: MRSA (PCR) Negative 01/26/23 05:00: WBC 16.7 H, RBC 5.17, Hgb 14.7, Hct 43.4, MCV 83.9, MCH 28.4, MCHC 33.9, RDW Std Deviation 44.5 H, RDW Coeff of Manoj 14.6, Plt Count 219, MPV 11.2, Immature Gran % (Auto) 0.500, Neut % (Auto) 89.7 H, Lymph % (Auto) 3.6 L, [place] % (Auto) 5.4, Eos % (Auto) 0.7, Baso % (Auto) 0.1, Absolute Neuts (auto) 15.0 H, Absolute Lymphs (auto) 0.61 L, Nucleated RBC % 0 01/26/23 05:00: Sodium 122 L, Potassium 4.0, Chloride 89 L, Carbon Dioxide 21.0, Anion Gap 12, BUN 39 H, Creatinine 1.42 H, Estim Creat Clear Calc 56.71, Est GFR (MDRD) Af Amer 65, Est GFR (MDRD) Non-Af 53 L, BUN/Creatinine Ratio 27.5 H, Glucose 108 H, Calcium 7.9 L, Phosphorus 4.5, Magnesium 2.3, Total Bilirubin 1.80 H, AST 46 H, ALT 35, Alkaline Phosphatase 173 H, Total Protein 6.3 L, Albumin 2.8 L, Globulin 3.5, Albumin/Globulin Ratio 0.8 L, TSH 1.25 Micro: Microbiology 01/24/23 15:42 Nasal Secretion SARS-CoV-2 Antigen (Rapid) - Final Radiography Diagnostic Testing: Radiology Impression Echocardiogram 01/24/23 18:26 Interpretation Summary Moderately dilated left ventricle. The estimated ejection fraction is 20 %. Stage 3 diastolic dysfunction. There is severe global hypokinesis of the left ventricle. The right atrium is severely enlarged. Ordering Physician: Toni Guzmán Referring Physician: [facility] Performed By: Hailey Singh RCS Chest X-Ray 01/25/23 12:40 IMPRESSION: Status post right thoracentesis. No evidence of pneumothorax. Electronically Signed: Angel Brown MD at 13:03 EDT , Venous Doppler Study 01/25/23 15:16 Interpretation Summary No evidence for acute deep venous thrombosis bilateral lower extremities with patent and compressible bilateral great saphenous veins. Pulsatile venous flow is noted bilaterally consistent with proximal venous hypertension or obstruction. Clinical correlation would be appropriate Examination was noted to be technically difficult due to swelling Ordering Physician: Anali Larose Referring Physician: [facility] Performed By: Maxi Gates RVT Chest X-Ray 01/25/23 17:32 IMPRESSION: Since prior study of earlier today, focal pulmonary opacity has developed in the lower right lung. Electronically Signed: Marquez Bustamante MD at 17:51 EDT , Thoracentesis Ultrasound 01/25/23 18:26 IMPRESSION: Ultrasound-guided right thoracentesis. Electronically Signed: Angel Brown MD at 13:09 EDT , Chest CT 01/26/23 07:46 IMPRESSION: Progressive infiltration in the right middle lobe and right lower lobe. Small residual right pleural effusion. Stable bilateral areas of groundglass appearance in the upper lobes. Minimal pleural thickening at the left lung base. Ascites. Electronically Signed: Angel Brown MD at 9:33 EDT , Physical Exam Const alert, oriented x3 and well nourished; Negative for average body habitus or healthy appearing Constitutional Narrative: Morbidly obese, upper middle-aged, white male, appears older than stated age, nontoxic,, appropriately interactive, nursing at bedside, appears chronically ill HEENT head/scalp atraumatic and moist oral mucous membranes HEENT Narrative: Dentition is fair, Mallampati is 3, no thrush Head and Scalp: normocephalic Eyes PERRL, EOMs intact bilaterally and conjunctivae normal Eyes Narrative: No scleral icterus Neck no lymphadenopathy and supple Neck Narrative: Positive JVD, trachea midline, no thyroid enlargement Resp No normal respiratory effort, no retractions, no use of accessory muscles and No clear to auscultation bilaterally Resp Narrative: Improved air movement on the right since thoracentesis but rhonchi now present bilaterally with few scattered wheezes bilaterally as well , mild tachypnea with no signs of extremis, currently on 2 L nasal cannula Auscultation: rhonchi and wheezes; Negative for rales Cardio regular rate, S1 normal heart sound, S2 normal heart sound, no murmurs, no rub and no clicks; Negative for no gallops Cardio Narrative: Positive S3, mild tachycardia, rhythm is irregularly irregular GI normal to inspection, nondistended, normoactive bowel sounds and soft to palpation Extremity Extremity Narrative: 3+ bilateral lower extremity pitting edema that extends up towards his hips and into his abdomen, no cyanosis or clubbing Skin no rashes or lesions noted, no wounds, skin turgor normal, no jaundice, no petechiae and no mottling Neuro oriented x3, moves all extremities and no focal motor deficits Speech: speech normal Psych Psych Narrative: Affect is flat and mood seems somewhat depressed Assessment & Plan Assessment/Plan (1) Heart failure, systolic, with acute decompensation: (2) Ascites: (3) Pleural effusion: (4) Orthopnea: (5) Elevated d-dimer: (6) Hyponatremia: (7) Elevated serum creatinine: (8) Hyperbilirubinemia: (9) Heart failure, diastolic, with acute decompensation: (10) Anasarca: (11) Paroxysmal atrial fibrillation with RVR: (12) Heart failure, systolic, with acute decompensation: (13) Acute respiratory failure with hypoxia: (14) Wide-complex tachycardia: PLAN: Plan Acute decompensated systolic/diastolic heart failure -Newly diagnosed -Echocardiogram has resulted and shows an EF of 20%, global dysfunction with stage III diastolic dysfunction, mild left atrial enlargement, severe right atrial enlargement, mild to moderate mitral valve insufficiency, mild to moderate tricuspid valve insufficiency, pulmonary systolic pressure is 20 mmHg, severe global hypokinesis of the LV -We will add metoprolol 12.5 twice daily today -Unable to utilize RAMAN or ARB secondary to history of angioedema--> will need to consider hydralazine and nitrate if blood pressure will tolerate in the future -We will consider addition of Aldactone if blood pressure tolerates in the future -Continue Jardiance -Continue Lasix drip -Continue strict I's and O's -Check daily weights -Continue fluid restriction -Sodium restricted diet -Patient has been -5.6 to 9 L for the hospitalization 2.1 L of which was through his thoracentesis -Weight is down approximately 6 kg -Dietitian education for heart failure appropriate diet -Consult cardiology is pending--> patient will likely need cardiac catheterization prior to discharge -Discussed with Dr. Perez on 01/25/2023 Large right pleural effusion-transudative -Status postthoracentesis on 01/25/2023 with 2100 cc removed -Transudative per lights criteria -Cultures are pending -We will need to monitor for recurrence -Continue diuresis Acute hypoxic respiratory failure with suspected pneumonia -After the thoracentesis the patient developed significant coughing and hypoxia -Chest x-ray shows new infiltrate in right base which was obscured by fluid previously -Initially started on vancomycin and Zosyn however patient's risk for healthcare acquired infection is extremely low so we will transition to ceftriaxone and azithromycin -I did obtain a CT of the ch is est to better evaluate to make sure that there was not a mass behind all the fluid. It looks like there is an infiltrate in the right middle and lower lobe as well as a small residual right pleural effusion -Day 1 of 7 for antibiotics -Aggressive pulmonary toilet -Mucinex -Check strep pneumo and Legionella antigens -Check sputum culture if obtained A-fib with RVR -EKG on presentation shows A-fib with RVR -Heart rates overall have been fairly well controlled under 100 -BPs are bit better so we will start low-dose beta-tj at 12.5 mg of metoprolol twice daily and assess for tolerance -Start heparin drip in the short-term especially with his poor EF until he is evaluated by cardiology for ongoing procedures -We will need Eliquis prior to discharge -Audiology consult is pending Wide-complex tachycardia -Suspect VT however could be A-fib with aberrancy -Metoprolol initiated -We will hold off on amiodarone initiation at this time secondary to age -Await cardiology input -Patient has been asymptomatic with these events -With EF would be candidate for defibrillator Elevated serum creatinine -Baseline is unknown -1.47 on admission and relatively stable at 1.4 to with ongoing diuresis -I suspect he is off the Starling curve therefore has cardiorenal syndrome -Repeat BMP in a.m. -Avoid nephrotoxins as able Hyponatremia -Hypervolemic hyponatremia secondary to CHF -Slowly trending up with diuresis -Continue diuresis -I anticipate with ongoing fluid removal that his sodium should improve -If sodium does not improve with diuresis and fluid removal will need further work-up Anasarca -Secondary above -Monitor clinically Hyperbilirubinemia -I anticipate this is related to chronic passive congestion of the liver -Should trend down with diuresis -Continue to monitor Elevated D-dimer -CTA of the chest was negative for PE -Check bilateral lower extremity Dopplers to rule out DVT Ascites -Minimal on ultrasound -Review of the liver was not performed I will need to discuss with radiology however I do anticipate that his ascites is related to his heart failure at this point Hyperlipidemia -LDL is at goal -Continue current statin Hypertension -Hold amlodipine -Blood pressures on the low side of normal at this time GERD -Continue Protonix Morbid obesity -Some of his weight is volume related and should improve with diuresis however he meets criteria for obesity at least at baseline -Current BMI is 40.4 -Daily weights ordered with diuresis -Recommend weight loss -Complicates treatment, prognosis, outcomes History of alcohol abuse -Remote History of tobacco abuse -No current use -Recommend ongoing cessation DVT prophylaxis -Heparin drip CODE STATUS -Full code Charges/Coding Visit Charges Inpatient E&M: 73501 Subs Hosp L3
--- NOTE | 2023-01-26 12:45 | CASEMGMT ---
Jonathan barney was called for patient. ANCA called patient's brother Mark and let him know patient is not doing well. ANCA asked if he is able to come to [facility]. Mark said he would be in soon. ANCA notified charger operator helper. ANCA asked legal secretary receptionist to notify SW when Mark shows up. Krystina Darby WIRE COILER MACHINE OPERATOR SHAVON
--- NOTE | 2023-01-26 12:47 | NURSING ---
staff alert called. this RN entered room with talent sourcer. MOLASSES PREPARER Eli at bedside explaining pt had called out needing to use restroom and states that pt felt nauseated. when pt sat at edge of bed, passed out. No pulse, CPR started by Trinidad LOPEZ. Plse returned and pt became responsive after approx [address] Larose entered room.
--- NOTE | 2023-01-26 13:10 | PCM.HOSP.N ---
Hospitalist Note CODE BLUE called. Arrived at bedside. Aide was with him at the time the code was called. He was having some nausea and felt like he had a bowel movement. She states he became somewhat tremulous and then went out. CPR was initiated as no pulse was palpated. I reviewed the rhythm strips and he looked to be in bradycardic A-fib during the event. I suspect he was hypotensive as well and that is why a pulse could not be well palpated. His blood pressure is low at baseline. But at time of my arrival CPR had been discontinued as he was awake and breathing on his own with a nonrebreather. Heart rate had improved and was between 90 and 110. Rhythm was A-fib with RVR. He indicated he was feeling better. Unfortunately his blood pressure which post code was the highest had been since he been here dropped and his respiratory status was still somewhat compromised. We placed him on BiPAP and oxygen saturations improved to 94%. He is being transferred to the ICU. I will start dobutamine as well as Levophed to help his cardiac output and support his blood pressure in the short-term. I have called cardiology and they were on their way to evaluate him. I will await recommendations. Oral medications will be held at this time. We will continue antibiotics for his pneumonia. Patient will be n.p.o. Critical care medicine/pulmonary medicine consulted and case was discussed. PICC line will be placed as I do not feel that the patient will likely be able to lie flat for centrally inserted central line placement.
[2023-01-26 13:14] LABS: Anion Gap 16 (5-15); BUN 35 mg/dL (7-18); Chloride 89 mmol/L (98-107); Creatinine, Serum 1.67 mg/dL (0.70-1.30); EST Glomerular Filtration Rate 44 mL/min (>60); Est Glom Filt Rate - Afr Amer 54 mL/min (>60); Estimated Creatinine Clearance 48.22 ml/min; Glucose 167 mg/dL (74-106); Potassium 3.8 mmol/L (3.5-5.1); Sodium Level 123 mmol/L (136-145)
[2023-01-26 13:26] LABS: Troponin-I HS 35 pg/mL (3.0-78.0)
[2023-01-26] MEDS: DOBUTamine 500mg PM 500 MG/250 ML IV.SOLN. 9.9 MG CONT INF (13:30)
--- NOTE | 2023-01-26 13:30 | CASEMGMT ---
Patient's brother Mark arrived at [facility]. ANCA introduced self and role at [facility]. ANAC explained that patient has been moved up to the Intensive Care Unit. ANCA took Mark up to the ICU and took him to the waiting room. ANCA notified JOHN Garrison that patient's brother Mark was in the waiting room. ANCA went back to sit with Mark. Mark told ANCA that their sister just last week and services are tomorrow. Mark also said their mother the beginning of December. ANCA provided emotional support. ANCA asked if Mark would like anything to drink and he requested coffee with cream. ANCA obtained coffee with cream and took to Mark. At that time JOHN Charlton came out to the waiting room to get Mark. Krystina SANDS
--- NOTE | 2023-01-26 13:45 | NURSING ---
patient received from PCU for hypotension. Patient transferred to ICU bed and placed on monitor. Dr Perez arrived while placing patient on monitor and assessed patient. Determined that patient will emergently go to paving and surfacing labourer. Dr Perez discussed with patient who was agreeable and signed consent. Levophed and Dobutamine gtt's started per orders, patient to be taken to paving and surfacing labourer as soon as they call that they're ready.
--- NOTE | 2023-01-26 13:57 | PCM.CONS.C ---
Assessment & Plan Assessment/Plan (1) Heart failure, systolic, with acute decompensation: PLAN: Patient is currently hypotensive. Agree with Levophed and if required dobutamine. We will proceed with coronary angiography to see if patient has significant left main and/or multivessel coronary artery disease that can explain his severe LV dysfunction. We will also consider balloon pump placement. Lasix drip has been discontinued. It will be reasonable to try to give patient 40 mg IV twice daily of Lasix. Due to hypotension he has not been started on RAMAN inhibitors or beta-blockers. Patient is currently in cardiogenic shock. (2) Paroxysmal atrial fibrillation with RVR: (3) Wide-complex tachycardia: PLAN: Likely secondary to patient's cardiomyopathy. Try to maintain potassium at around 4 and magnesium at 2. No beta-blockers at this time because of hypotension requiring pressor support. HPI Consult Data Date of Consult: 01/26/23 HPI Narrative Reason for Consultation: Congestive heart failure HPI Narrative: BLAZE MILLER, is a 62 M who presents with shortness of breath and edema. Patient's symptoms apparently started about a month and a half before and he was being treated at the [facility]. He had apparently been started on Lasix and the dose was then increased. Since the patient felt that it was not working as well as it was initially he had stopped taking it. Patient was found to be in significant volume overload and was admitted to the PCU. He was started on Lasix drip. 2D echo revealed an EF of around 20%. This morning patient was apparently having some nausea and wanted to get up and go to the bathroom. He became lightheaded, bradycardic and lost his pulse briefly. CPR was started and within 2 minutes there was return of spontaneous circulation. This morning patient had a long run of nonsustained V. tach as well. That was a few hours prior to the episode where he lost his pulse and was bradycardic. Patient is currently hypotensive and has been started on Levophed. He denies any significant shortness of breath and is able to lie down flat. He however does have significant edema. Review of systems: All systems reviewed. All else is negative except that in [facility] Medical History (Updated 01/26/23 @ 11:[address] Anali Larose DO) Angioedema Food impaction of esophagus History of alcohol abuse History of tobacco abuse Hypertension Hypertension Morbid obesity Home Medications pantoprazole 40 mg tablet,delayed release 40 mg PO DAILY stomach 05/01/19 [History Last Taken 04/30/19] amlodipine 5 mg tablet 10 mg PO DAILY blood pressure 01/24/23 [History Last Taken Unknown] simvastatin 20 mg tablet 20 mg PO QHS cholesterol 01/24/23 [History Last Taken Unknown] Allergy/AdvReac Type Severity Reaction Status Date / Time lisinopril Allergy Angioedema Verified 09/20/20 18:58 Family History Other Heart disease Surgical History H/O elbow surgery Social History Smoking Status: Former smoker Physical Exam Const alert and oriented x3 HEENT normocephalic Eyes no scleral icterus Resp Resp Narrative: Bilateral crackles. Cardio Cardio Narrative: Irregular rhythm. Extremity General Extremity: edema bilateral lower extremity Details: severe Psych mental status grossly normal Risk Stratification Risk Stratification Applicable: No Charges/Coding Visit Charges Inpatient E&M: 90682 Init Hosp L2 Objective Data Vital Signs: Vital Signs Temp Pulse Resp BP Pulse Ox O2 Del Method O2 Flow Rate 97.5 F L 56 L 20 H 66/54 L 100 Non-Rebreather 15 01/26/23 12:43 01/26/23 12:55 01/26/23 12:55 01/26/23 12:51 01/26/23 12:55 01/26/23 12:51 01/26/23 12:43 FiO2 100 01/26/23 12:55 Oxygen Flow Rate (L/min) 15 Oxygen Delivery Method [3] Room Air Oxygen Delivery Method [2] Room Air Oxygen Delivery Method [1 ( Room Air Initial Baseline)] Oxygen Delivery Method Non-Rebreather Weight: 289 lb 10.998 oz Body Mass Index (BMI) 40.4 Intake & Output: Intake and Output for Last 24 Hours 01/24/23 01/25/23 01/26/23 23:59 23:59 23:59 Intake Total 220 / 220 746.95 / 986.95 1003.77 / 1003.77 Output Total 850 / 850 3150 / 4050 3550 / 3550 Balance -630 / -630 -2403.05 / -3063.05 -2546. / -2546.23 Lab / Micro Data Result Diagrams: 01/26/23 05:00 01/26/23 12:50 Labs: Laboratory Results - last 24 hr 01/25/23 12:30: Fluid Source THORACENTESIS, Fluid Color LT YEL, Fluid Appearance SL CLDY, Fluid RBC 102, Fluid Neutrophils 16, Fluid Lymphocytes 59, Fluid Macrophages 11, Fld Mesothelial Cells 14, Fl Pathologist Comment May follow, Fluid Comment 2 SEE COMMENT 01/25/23 21:18: MRSA (PCR) Negative 01/26/23 05:00: WBC 16.7 H, RBC 5.17, Hgb 14.7, Hct 43.4, MCV 83.9, MCH 28.4, MCHC 33.9, RDW Std Deviation 44.5 H, RDW Coeff of Manjo 14.6, Plt Count 219, MPV 11.2, Immature Gran % (Auto) 0.500, Neut % (Auto) 89.7 H, Lymph % (Auto) 3.6 L, [place] % (Auto) 5.4, Eos % (Auto) 0.7, Baso % (Auto) 0.1, Absolute Neuts (auto) 15.0 H, Absolute Lymphs (auto) 0.61 L, Nucleated RBC % 0 01/26/23 05:00: Sodium 122 L, Potassium 4.0, Chloride 89 L, Carbon Dioxide 21.0, Anion Gap 12, BUN 39 H, Creatinine 1.42 H, Estim Creat Clear Calc 56.71, Est GFR (MDRD) Af Amer 65, Est GFR (MDRD) Non-Af 53 L, BUN/Creatinine Ratio 27.5 H, Glucose 108 H, Calcium 7.9 L, Phosphorus 4.5, Magnesium 2.3, Total Bilirubin 1.80 H, AST 46 H, ALT 35, Alkaline Phosphatase 173 H, Total Protein 6.3 L, Albumin 2.8 L, Globulin 3.5, Albumin/Globulin Ratio 0.8 L, TSH 1.25 01/26/23 12:50: Sodium 123 L, Potassium 3.8, Chloride 89 L, Carbon Dioxide 18.0 L, Anion Gap 16 H, BUN 35 H, Creatinine 1.67 H, Estim Creat Clear Calc 48.22, Est GFR (MDRD) Af Amer 54 L, Est GFR (MDRD) Non-Af 44 L, BUN/Creatinine Ratio 21.0 H, Glucose 167 H, Calcium 8.0 L 01/26/23 12:50: Troponin I High Sens 35 Micro: Microbiology 01/26/23 11:15 Urine Catheter - Watson Legionella Antigen - Final 01/26/23 11:15 Urine Catheter - Watson Streptococcus pneumoniae Antigen (M - Final Cardiology Labs/Tests 01/26/23 05:00: WBC 16.7 H, RBC 5.17, Hgb 14.7, Hct 43.4, MCV 83.9, MCH 28.4, MCHC 33.9, Plt Count 219, MPV 11.2, Immature Gran % (Auto) 0.500, Neut % (Auto) 89.7 H, Lymph % (Auto) 3.6 L, [place] % (Auto) 5.4, Eos % (Auto) 0.7, Baso % (Auto) 0.1, Absolute Neuts (auto) 15.0 H, Nucleated RBC % 0 01/26/23 05:00: Sodium 122 L, Potassium 4.0, Chloride 89 L, Carbon Dioxide 21.0, Anion Gap 12, BUN 39 H, Creatinine 1.42 H, Est GFR (MDRD) Af Amer 65, Est GFR (MDRD) Non-Af 53 L, BUN/Creatinine Ratio 27.5 H, Glucose 108 H, Calcium 7.9 L, Phosphorus 4.5, Magnesium 2.3, Total Bilirubin 1.80 H 01/26/23 12:50: Sodium 123 L, Potassium 3.8, Chloride 89 L, Carbon Dioxide 18.0 L, Anion Gap 16 H, BUN 35 H, Creatinine 1.67 H, Est GFR (MDRD) Af Amer 54 L, Est GFR (MDRD) Non-Af 44 L, BUN/Creatinine Ratio 21.0 H, Glucose 167 H, Calcium 8.0 L Rhythm: EKG: ECHO: Stress Test: Cardiac Cath: PCI: CT Surgery: Holter monitor: EPS: PPM: CXR: Chest CT Scan: Radiography Diagnostic Testing: Radiology Impression Venous Doppler Study 01/25/23 15:16 Interpretation Summary No evidence for acute deep venous thrombosis bilateral lower extremities with patent and compressible bilateral great saphenous veins. Pulsatile venous flow is noted bilaterally consistent with proximal venous hypertension or obstruction. Clinical correlation would be appropriate Examination was noted to be technically difficult due to swelling Ordering Physician: Anali Larose Referring Physician: [facility] Performed By: Maxi Gates RVT Chest X-Ray 01/25/23 17:32 IMPRESSION: Since prior study of earlier today, focal pulmonary opacity has developed in the lower right lung. Electronically Signed: Marquez Bustamante MD at 17:51 EDT , Chest CT 01/26/23 07:46 IMPRESSION: Progressive infiltration in the right middle lobe and right lower lobe. Small residual right pleural effusion. Stable bilateral areas of groundglass appearance in the upper lobes. Minimal pleural thickening at the left lung base. Ascites. Electronically Signed: Angel Brown MD at 9:33 EDT ,
--- NOTE | 2023-01-26 14:40 | CON.PCM.CC_ITS ---
Assessment & Plan Assessment/Plan (1) Acute respiratory failure with hypoxia: (2) Heart failure, systolic, with acute decompensation: (3) Heart failure, diastolic, with acute decompensation: (4) Shock: PLAN: Plan RECOMMENDATIONS: 1. Continue pressors for now with a goal map of 65 2. Obtain urinalysis 3. Empiric heparinization with rate control 4. Potential diuretics once more hemodynamically stable 5. Obtain liver Doppler ultrasound 6. BiPAP breaks during the day, but continue BiPAP with sleep 7. Possibly reinitiate diuretics once blood pressure better controlled IMPRESSIONS: 1. Undifferentiated shock Unclear etiology at this time. Patient does have an EF showing of 20% with global dysfunction and stage III diastolic dysfunction. Patient has no history of previous coronary disease that we are aware of. Patient is not chronically on steroids to suggest adrenal insufficiency. Patient currently on dobutamine and Levophed. Cardiac catheterization is not suggestive of an acute thrombotic event. Patient does have A-fib and will be highly rate dependent given his severe diastolic dysfunction. Patient has received significant diuresis, but electrolytes acute acute event were not suggestive of this as an etiology. 2. Acute hypoxic respiratory failure Likely multifactorial. Patient has had a leukocytosis throughout his hospitalization. Patient also had a large pleural effusion that was tapped and deemed transudate. Patient on empiric antibiotics for now. Community acquired pneumonia antibiotics are likely sufficient given patient has not been treated with antibiotics or hospitalized. Patient does have a smoking history, so component of COPD cannot be excluded 3. New onset combined CHF/A-fib with RVR Patient has been reporting increased shortness of breath on exertion for 2 months. Patient does not appear to have a significant coronary artery disease, but does not have apical ballooning either. Cardiology has been consulted. Infiltrative disease process versus pericarditis would be a concern. This is likely contributing to problem #1. Patient is currently receiving anticoagulation. 4. Acute kidney injury Patient with a baseline of a creatinine of 1 in the past. Patient has decreased albumin and anasarca. Will obtain a UA to for evaluation of nephrotic component. No indication for renal replacement therapy. Patient has been stable despite ongoing diuresis indicating an element of prerenal secondary to being off his Starling curve. 5. Anasarca/ascites/hyperbilirubinemia Unclear etiology. Patient does have significant fluid overload at this time. Will obtain a UA for evaluation of nephrotic disease. Patient does have an elevated D-dimer, so intrahepatic thrombus would be a concern. Patient may have an element of congestive hepatology leading to findings. Patient does have a history of alcohol in the past, but does not appear to be acutely withdrawing. 6. Morbid obesity/history of tobacco abuse/history of alcohol/GERD/obesity/late presentation Complicates care, management, recovery and prognosis. Okay to continue PPI from my perspective. Patient is not showing any signs of alcohol wit hdrawal. Patient would benefit from outpatient pulmonary function test once he is euvolemic. TIME: 45 minutes critical care time spent addressing patient's shock, acute respiratory failure, CHF, acute kidney injury, review of all data and collaboration with care team HPI Consult Data Date of Consult: 01/26/23 HPI Narrative HPI Narrative: BLAZE MILLER is a 62 M, with past medical history listed below, who presented to [facility] on 01/24/[facility]23 secondary to progressive shortness of breath. Patient reportedly had been seen at the [facility] previously secondary to lower extremity swelling. Patient had been placed on Lasix, but did not see a integration software engineer. Patient states that he had some orthopnea with dyspnea on exertion. Patient estimates that this was in the last 2 months. Patient states that 3 days ago he felt like Lasix stopped working so he discontinued it. Patient denied any fevers, chills, nausea or vomiting at that time. Patient does have a history of smoking, but does not see a therapeutic riding instructor at baseline. At that time, patient was afebrile, but slightly tachypneic at 21 breaths/min. Patient was normotensive and saturating 95% on room air. Laboratory work-up showed a white blood cell count of 11.7, hemoglobin of 15.4 and platelets of 297. Chemistries showed a sodium of 119, chloride of 83 and a creatinine of 1.47. BNP was elevated at 1709 with a D-dimer of 3.82. Patient had a chest x- ray showed a large right pleural effusion with cardiomegaly. Patient subsequently had a CTA of the chest showing no PE with once again a large right pleural effusion with compressive atelectasis and patchy bilateral infiltrates with ascites. Patient was admitted to the PCU for further evaluation. When on the PCU, patient had an echocardiogram showing an EF of 20% with stage I II diastolic dysfunction and severe global hypokinesis of the left ventricle. Patient's pulmonary pressures were elevated at 30 mmHg. Patient was placed on a Lasix drip and cardiology was consulted. Patient did have a thoracentesis with 2100 cc removed from the right chest. This was consistent with a transudate etiology. Today, patient was a CODE BLUE. Patient reportedly had complained of having to go to the bathroom and stood up to go to the restroom. Patient subsequently went unresponsive did receive 2 minutes of CPR before ROSC. Patient was placed on BiPAP therapy and transferred to the intensive care unit. On my evaluation in the intensive care unit, patient was on the BiPAP at 100% FiO2. Patient's oxygen saturations were improving, so he was eventually dropped down to 60% FiO2. Patient was on dobutamine and Levophed to maintain pressures. Given patient's acute event, cardiology decided to take the patient to the Feller Machine Operator. Patient was personally escorted to the Feller Machine Operator and monitored. Patient was able to tolerate a right femoral approach. No significant coronary artery disease was noted. Patient was tolerating this well, so the patient was left under the care of cardiology. Unable to obtain a review of systems secondary to patient's acute medical condition [facility] Medical History Angioedema Food impaction of esophagus History of alcohol abuse History of tobacco abuse Hypertension Hypertension Morbid obesity Home Medications pantoprazole 40 mg tablet,delayed release 40 mg PO DAILY stomach 05/01/19 [ History Last Taken 04/30/19] amlodipine 5 mg tablet 10 mg PO DAILY blood pressure 01/24/23 [History Last Taken Unknown] simvastatin 20 mg tablet 20 mg PO QHS cholesterol 01/24/23 [History Last Taken U nknown] Allergy/AdvReac Type Severity Reaction Status Date / Time lisinopril Allergy Angioedema Verified 09/20/20 18:58 Family History Other Heart disease Surgical History H/O elbow surgery Social History Smoking Status: Former smoker ROS ROS Narrative See HPI Physical Exam Const alert and oriented x3 Constitutional Narrative: Morbidly obese, upper middle-aged, white male, appears older than stated age General Appearance: ill appearing HEENT head/scalp atraumatic and moist oral mucous membranes HEENT Narrative: On BiPAP during my evaluation Head and Scalp: normocephalic Eyes PERRL, EOMs intact bilaterally, conjunctivae normal and no scleral icterus Neck no lymphadenopathy and supple Neck Narrative: Positive JVD General: trachea midline Resp No normal respiratory effort, no retractions, no use of accessory muscles and No clear to auscultation bilaterally Auscultation: rhonchi, wheezes and diminished lung sounds; Negative for rales Cardio regular rate, S1 normal heart sound, S2 normal heart sound, no murmurs, no rub and no clicks; Negative for no gallops Cardio Narrative: Positive S3 Rhythm: abnormal rhythm irregularly irregular GI normal to inspection, nondistended, normoactive bowel sounds and soft to palpation Extremity General Extremity: edema bilateral (4+ with extension into the abdomen) lower extremity; Negative for clubbing Skin no rashes or lesions noted, no wounds, skin turgor normal, no jaundice, no petechiae and no mottling Neuro oriented x3, moves all extremities and no focal motor deficits Speech: speech normal Psych Mood & Affect: flat affect Medical Records Data Attestation: I reviewed the patient's medical records Lab / Micro Data Attestation: I reviewed the patient's lab results. Result Diagrams: 01/26/23 05:00 01/26/23 12:50 Labs: Laboratory Results - last 24 hr 01/25/23 21:18: MRSA (PCR) Negative 01/26/23 05:00: WBC 16.7 H, RBC 5.17, Hgb 14.7, Hct 43.4, MCV 83.9, MCH 28.4, MCHC 33.9, RDW Std Deviation 44.5 H, RDW Coeff of Manoj 14.6, Plt Count 219, MPV 11.2, Immature Gran % (Auto) 0.500, Neut % (Auto) 89.7 H, Lymph % (Auto) 3.6 L, Jenkins % (Auto) 5.4, Eos % (Auto) 0.7, Baso % (Auto) 0.1, Absolute Neuts (auto) 15.0 H, Absolute Lymphs (auto) 0.61 L, Nucleated RBC % 0 01/26/23 05:00: Sodium 122 L, Potassium 4.0, Chloride 89 L, Carbon Dioxide 21.0, Anion Gap 12, BUN 39 H, Creatinine 1.42 H, Estim Creat Clear Calc 56.71, Est GFR (MDRD) Af Amer 65, Est GFR (MDRD) Non-Af 53 L, BUN/Creatinine Ratio 27.5 H, Glucose 108 H, Calcium 7.9 L, Phosphorus 4.5, Magnesium 2.3, Total Bilirubin 1.80 H, AST 46 H, ALT 35, Alkaline Phosphatase 173 H, Total Protein 6.3 L, Albumin 2.8 L, Globulin 3.5, Albumin/Globulin Ratio 0.8 L, TSH 1.25 01/26/23 12:50: Sodium 123 L, Potassium 3.8, Chloride 89 L, Carbon Dioxide 18.0 L, Anion Gap 16 H, BUN 35 H, Creatinine 1.67 H, Estim Creat Clear Calc 48.22, Est GFR (MDRD) Af Amer 54 L, Est GFR (MDRD) Non-Af 44 L, BUN/Creatinine Ratio 21.0 H, Glucose 167 H, Calcium 8.0 L 01/26/23 12:50: Troponin I High Sens 35 Micro: Microbiology 01/26/23 11:15 Urine Catheter - Watson Legionella Antigen - Final 01/26/23 11:15 Urine Catheter - Watson Streptococcus pneumoniae Antigen (M - Final Radiology Impression Venous Doppler Study 01/25/23 15:16 Interpretation Summary No evidence for acute deep venous thrombosis bilateral lower extremities with patent and compressible bilateral great saphenous veins. Pulsatile venous flow is noted bilaterally consistent with proximal venous hypertension or obstruction. Clinical correlation would be appropriate Examination was noted to be technically difficult due to swelling Ordering Physician: Anali Larose Referring Physician: [facility] Performed By: Maxi Gates RVT Chest X-Ray 01/25/23 17:32 IMPRESSION: Since prior study of earlier today, focal pulmonary opacity has developed in the lower right lung. Electronically Signed: Marquez Bustamante MD at 17:51 EDT , Chest CT 01/26/23 07:46 IMPRESSION: Progressive infiltration in the right middle lobe and right lower lobe. Small residual right pleural effusion. Stable bilateral areas of groundglass appearance in the upper lobes. Minimal pleural thickening at the left lung base. Ascites. Electronically Signed: Angel Brown MD at 9:33 EDT , Charges/Coding Procedures Hospitalists Procedures: [id number] Critial Care 1st Hr
[2023-01-26 15:11] LABS: Base Excess -2 mmol/L (-2 to +2); Bicarbonate 21.8 mmol/L (22-26); Blood Gas Specimen Type ART; FI02 40; Mode BiLevel; O2 Delivery Device BiPAP; PEEP 12; PO2 80 mmHG (75-100); RR 14; SITE Art Line; SO2 97 % (95-99); Total Carbon Dioxide 23 mmol/L; pCO2 30.9 mmHg (35-45); pH 7.46 (7.35-7.45)
[2023-01-26] MEDS: HEPARIN/D5w 25,000 UNITS 25,000 UNITS/250 ML IV.SOLN. 17 UNITS CONT INF (15:45)
--- NOTE | 2023-01-26 15:54 | CHAPLAIN ---
Type of Pastoral Visit ___ Initial Visit ___ Follow-up Visit ___ On-call Visit ___ General Patient Visit ___ Spiritual Assessment ___ Family Conference ___ Bereavement ___ Rapid Response _x__ Code Blue ___ Other (describe below) Pastoral Care Referral From ___ Patient ___ Family ___ Nurse ___ Physician ___ Mortar Mixer Operator ___ Inspector Floor _x__ Other (describe below) Sacrament/Intervention _x__ Active listening ___ Anointing ___ Denominational ___ Bereavement ___ Communion ___ Maddison exploration ___ ___ Life review _x__ Prayer ___ Reconciliation ___ Sacrament of Sick _x__ Supportive presence ___ Wedding ___ Other (describe below) Pastoral Comments responded to code blue and patient was quickly revived; remained for support but no family was present; later was notified that pt brother had arrvied and was in ICU as patient had been moved there; pt is on bi-pap but able to nod head in response to a few questions; pt welcomed prayer and presence and was awaiting transfer to agricultural labor camp manager; brother was able to give more information and talked about recent deaths of sister and mother; family has had much heartache in recent months; brother is receptive to support and will be present for procedure on patient; prayer is welcomed; no other needs at this time
[2023-01-26 16:06] LABS: Partial Thromboplast Time 71.7 Seconds (24.1-36.2)
[2023-01-26 17:00] LABS: Bacteria 0 SEEN /hpf (None Seen); Mucous, Urine 0 SEEN /hpf (<or=2+); Squamous Epithelial Cells - UA 0 SEEN /hpf (0-5)
[2023-01-26 17:04] LABS: Color, Urine Yellow (Yellow); Glucose, Dipstick Normal (Normal); Ketone-Dipstick Negative (Negative); Leukocyte Esterase-Dipstick 500 /ul (Negative); Nitrite-Dipstick Negative (Negative); Occult Blood-Urine 250 /ul (Negative); Protein-Dipstick 100 mg/dl (Negative); Specific Gravity, Urine 1.015 (1.002-1.030); Urine Bilirubin Dipstick Negative (Negative); Urine Clarity Sl. Cloudy (Clear); Urine Urobilinogen 1 mg/dl (Normal)
[2023-01-26 17:24] LABS: Red Blood Cells-Urine > 100 SEEN /hpf (0-5); White Blood Cells 0-5 SEEN /hpf (0-5)
[2023-01-26 17:25] LABS: Hyaline Cast 0-5 SEEN /lpf (0-5)
--- NOTE | 2023-01-26 18:30 | RAD_ITS ---
STUDY: X-RAY CHEST REASON FOR EXAM: Male, 62 years old. PICC placement TECHNIQUE: Single AP portable view of the chest. COMPARISON: 01/25/2023. FINDINGS: There is a right PICC line terminating at the level of the right hilum No other definite changes. Again seen is atelectasis or infiltrate of the lower right lung and mild diffuse hazy density of the left lung. Probable small right pleural effusion. There is moderate cardiac enlargement. Normal mediastinum and promise. Normal visualized pulmonary arteries. Normal visualized aortic arch and descending thoracic aorta. Normal visualized thoracic spine. Normal visualized ribs, clavicles, and shoulders. There is no demonstrated abnormality of the visualized soft tissue structures of the upper abdomen. RAD/CXR for Line Placement IMPRESSION: Right PICC line terminates at the level of the right hilum. No other definite changes since yesterday. Electronically Signed: Marquez Bustamante MD at 19:15 EDT ,
[2023-01-26 22:01] LABS: Partial Thromboplast Time > 200.0 Seconds (24.1-36.2)
[2023-01-27] VITALS (44 sets, daily range): BP systolic 61–127; BP diastolic 38–108; PULSE 88–115; RESP 14–24; TEMP 35.9–36.6; O2SAT 89–96; BMI 40.4
[2023-01-27 04:02] LABS: Absolute Lymphocyte Count 0.84 X10^3/uL (0.83-4.51); Absolute Neutrophil Count 12.3 X10^3/uL (2.0-7.7); Basophil# 0.01 X10^3/uL; Basophil% 0.1 % (0-1); Eosinophil# 0.01 X10^3/uL; Eosinophils% 0.1 % (0-5); Hematocrit 42.7 % (40-54); Hemoglobin 14.1 g/dL (13.0-16.5); Lymphocyte # 0.84 X10^3/ul (0.83-4.51); Lymphocyte % 5.9 % (19-41); Mean Corpuscular Hgb 27.8 pg (27.0-32.0); Mean Corpuscular Volume 84.1 fL (80-94); Mean Platelet Vol. 11.1 fl (6.2-12.0); Monocyte# 1.03 X10^3/uL; Monocyte% 7.2 % (0-10); NRBC Flagged by Analyzer 0 % (0-5); Neutrophil # 12.32 X10^3/uL (2.7-7.7); Neutrophil % 86.3 % (47-70); Platelet Count 264 K/mm3 (150-450); RBC Distribution Width CV 14.6 % (11.6-14.6); RBC Distribution Width SD 44.7 fl (35.1-43.9); Red Blood Count 5.08 M/mm3 (4.6-6.2); White Blood Count 14.3 K/mm3 (4.4-11.0)
[2023-01-27 04:28] LABS: ALB/GLOB Ratio 0.8 RATIO (0.9-2.4); AST(SGOT) 40 U/L (15-37); Alanine Aminotransfer ALT/SGPT 31 U/L (16-61); Albumin, Serum 2.7 g/dL (3.2-5.0); Alkaline Phosphatase 165 U/L (45-117); Anion Gap 13 (5-15); BUN 39 mg/dL (7-18); BUN/Creat Ratio 28.3 RATIO (10-20); Calcium,Total 7.6 mg/dL (8.5-10.1); Chloride 92 mmol/L (98-107); Creatinine, Serum 1.38 mg/dL (0.70-1.30); EST Glomerular Filtration Rate 55 mL/min (>60); Est Glom Filt Rate - Afr Amer 67 mL/min (>60); Estimated Creatinine Clearance 58.35 ml/min; Globulin 3.2 g/dL (2.2-4.2); Glucose 121 mg/dL (74-106); Magnesium 2.2 mg/dL (1.6-2.6); Phosphorus 7.1 mg/dL (2.5-4.9); Potassium 3.4 mmol/L (3.5-5.1); Protein, Total 5.9 g/dL (6.4-8.2); Sodium Level 127 mmol/L (136-145)
--- NOTE | 2023-01-27 06:40 | PCM.PN.INT ---
Assessment & Plan Assessment/Plan (1) Acute respiratory failure with hypoxia: (2) Heart failure, systolic, with acute decompensation: (3) Heart failure, diastolic, with acute decompensation: (4) Shock: PLAN: Plan RECOMMENDATIONS: 1. Continue pressors for now with a goal map of 65 2. Obtain nephrology consult 3. Empiric heparinization with rate control 4. Potential diuretics once more hemodynamically stable 5. Potential CT scan to evaluate for liver flow 6. BiPAP breaks during the day, but continue BiPAP with sleep 7. Removal of art line once off pressors IMPRESSIONS: 1. Undifferentiated shock Unclear etiology at this time. Patient does have an EF showing of 20% with global dysfunction and stage III diastolic dysfunction. Patient has no history of previous coronary disease that we are aware of, but has had lower extremity swelling. Patient is not chronically on steroids to suggest adrenal insufficiency. Patient currently on Levophed only. Patient has been placed on empiric antibiotics, but these can likely be discontinued after 48 hours if culture negative. Cardiac catheterization is not suggestive of an acute thrombotic event. Patient does have A-fib and will be highly rate dependent given his severe diastolic dysfunction. Patient has received significant diuresis, but electrolytes following acute event were not suggestive of this as an etiology. 2. Acute hypoxic respiratory failure Likely multifactorial. Patient has had a leukocytosis throughout his hospitalization. Patient also had a large pleural effusion that was tapped and deemed transudate. Patient on empiric antibiotics for now. Community acquired pneumonia antibiotics are likely sufficient given patient has not been treated with antibiotics or hospitalized. Patient does have a smoking history, so component of COPD cannot be excluded. Patient has responded well to positive pressure 3. New onset combined CHF/A-fib with RVR Patient has been reporting increased shortness of breath on exertion for 2 months. Patient does not appear to have a significant coronary artery disease, but does not have apical ballooning either. Cardiology has been consulted. Infiltrative disease process versus pericarditis would be a concern. This is likely contributing to problem #1. Patient is currently receiving anticoagulation. 4. Acute kidney injury Patient with a baseline of a creatinine of 1 in the past. Patient has decreased albumin and anasarca. UA is showing significant protein and blood, but patient is on a heparin drip at this time. No indication for renal replacement therapy. Patient has been stable despite ongoing diuresis indicating an element of prerenal secondary to being off his Starling curve. 5. Anasarca/ascites/hyperbilirubinemia Unclear etiology. Patient does have significant fluid overload at this time. Patient does have an elevated D-dimer, so intrahepatic thrombus would be a concern. Reportedly, hepatic Doppler cannot be done and this needs to have a CT with contrast. Given renal function, will defer to nephrology if this is necessary. Patient may have an element of congestive hepatology leading to findings. Patient does have a history of alcohol in the past, but does not appear to be acutely withdrawing. 6. Morbid obesity/history of tobacco abuse/history of alcohol/GERD/obesity/late presentation Complicates care, management, recovery and prognosis. Okay to continue PPI from my perspective. Patient is not showing any signs of alcohol withdrawal. Patient would benefit from outpatient pulmonary function test once he is euvolemic. TIME: 35 minutes critical care time spent addressing patient's shock, acute respiratory failure, CHF, acute kidney injury, review of all data and collaboration with care team Subjective Subjective Patient did okay overnight. Patient does remain on Levophed to maintain appropriate blood pressures. Patient also on a heparin drip, but no bleeding complications have been reported. Patient has had intermittent conversion to sinus rhythm, but this has not been sustained. Patient overall feels subjectively improved compared to previous. No chest pain has been reported. Patient is much more appropriate and states that he has noticed increased shortness of breath since September. Patient states that he was originally placed on Lasix therapy and felt that this was effective for some time. Objective Data Objective Data Vital Signs: Vital Signs Temp Pulse Resp BP Pulse Ox O2 Del Method O2 Flow Rate 36.5 C L 110 H 16 103/75 95 Nasal Cannula 4 01/27/23 04:00 01/27/23 06:00 01/27/23 06:00 01/27/23 06:00 01/27/23 06:00 01/27/23 06:00 01/27/23 06:00 FiO2 65 01/27/23 03:00 Oxygen Flow Rate (L/min) 4 Oxygen Delivery Method [3] Room Air Oxygen Delivery Method [2] Room Air Oxygen Delivery Method [1 ( Room Air Initial Baseline)] Oxygen Delivery Method Nasal Cannula Weight: 131.7 kg Body Mass Index (BMI) 40.4 Intake & Output: Intake and Output for Last 24 Hours 01/25/23 01/26/2301/27/23 23:59 23:59 23:59 Intake Total 746.95 / 986.95 1524.25 / 1533.65 65.8 / 65.8 Output Total 3150 / 4050 4050 / 4050 400 / 400 Balance -2403.05 / -3063.05 -2525.75 / -2516.35 -334.2 / -334.2 Lab / Micro Data Attestation: I reviewed the patient's lab results. Result Diagrams: 01/27/23 03:50 01/27/23 03:50 Labs: Laboratory Results - last 24 hr 01/26/23 12:50: Sodium 123 L, Potassium 3.8, Chloride 89 L, Carbon Dioxide 18.0 L, Anion Gap 16 H, BUN 35 H, Creatinine 1.67 H, Estim Creat Clear Calc 48.22, Est GFR (MDRD) Af Amer 54 L, Est GFR (MDRD) Non-Af 44 L, BUN/Creatinine Ratio 21.0 H, Glucose 167 H, Calcium 8.0 L 01/26/23 12:50: Troponin I High Sens 35 01/26/23 15:35: APTT 71.7 H 01/26/23 16:25: Urine Color Yellow, Urine Clarity Sl. Cloudy, Urine pH 5.0, Ur Specific [place] 1.015, Urine Protein 100 H, Urine Glucose (UA) Normal, Urine Ketones Negative, Urine Occult Blood 250 H, Urine Nitrite Negative, Urine Bilirubin Negative, Urine Urobilinogen 1 H, Ur Leukocyte Esterase 500 H, Urine RBC > 100 SEEN, Urine WBC 0-5 SEEN, Ur Squamous Epith Cells 0 SEEN, Urine Bacteria 0 SEEN, Hyaline Casts 0-5 SEEN, Urine Mucus 0 SEEN 01/26/23 21:00: APTT > 200.0 H* 01/27/23 03:50: WBC 14.3 H, RBC 5.08, Hgb 14.1, Hct 42.7, MCV 84.1, MCH 27.8, MCHC 33.0, RDW Std Deviation 44.7 H, RDW Coeff of Manoj 14.6, Plt Count 264, MPV 11.1, Immature Gran % (Auto) 0.400, Neut % (Auto) 86.3 H, Lymph % (Auto) 5.9 L, [place] % (Auto) 7.2, Eos % (Auto) 0.1, Baso % (Auto) 0.1, Absolute Neuts (auto) 12.3 H, Absolute Lymphs (auto) 0.84, Nucleated RBC % 0 01/27/23 03:50: Sodium 127 L, Potassium 3.4 L, Chloride 92 L, Carbon Dioxide 22.0, Anion Gap 13, BUN 39 H, Creatinine 1.38 H, Estim Creat Clear Calc 58.35, Est GFR (MDRD) Af Amer 67, Est GFR (MDRD) Non-Af 55 L, BUN/Creatinine Ratio 28.3 H, Glucose 121 H, Calcium 7.6 L, Phosphorus 7.1 H, Magnesium 2.2, Total Bilirubin 1.20 H, AST 40 H, ALT 31, Alkaline Phosphatase 165 H, Total Protein 5.9 L, Albumin 2.7 L, Globulin 3.2, Albumin/Globulin Ratio 0.8 L Micro: Microbiology 01/26/23 11:15 Urine Catheter - Watson Legionella Antigen - Final 01/26/23 11:15 Urine Catheter - Watson Streptococcus pneumoniae Antigen (M - Final 01/24/23 15:42 Nasal Secretion SARS-CoV-2 Antigen (Rapid) - Final ABG Data ABG results: ABG 01/26/23 15:05 Specimen Type ART Sample Site Art Line pH 7.46 H Bicarbonate Actual 21.8 L Total CO2 23 Base Excess -2 O2 Saturation 97 O2 % 40 ABG pCO2 30.9 L ABG pO2 80 Respiration Rate 14 O2 Delivery Device BiPAP Vent Mode BiLevel POC PEEP 12 Clinical Comments 03/09 14 40% Attestation: I personally reviewed and interpreted this ABG as follows: (Respiratory alkalosis with metabolic acidosis and increased AA gradient) Radiography Diagnostic Testing: Radiology Impression Chest CT 01/26/23 07:46 IMPRESSION: Progressive infiltration in the right middle lobe and right lower lobe. Small residual right pleural effusion. Stable bilateral areas of groundglass appearance in the upper lobes. Minimal pleural thickening at the left lung base. Ascites. Electronically Signed: Angel Brown MD at 9:33 EDT , Chest X-Ray 01/26/23 18:30 IMPRESSION: Right PICC line terminates at the level of the right hilum. No other definite changes since yesterday. Electronically Signed: Marquez Bustamante MD at 19:15 EDT , Physical Exam Const alert and oriented x3 Constitutional Narrative: Morbidly obese, upper middle-aged, white male, appears older than stated age General Appearance: cooperative; Negative for in distress HEENT head/scalp atraumatic and moist oral mucous membranes Eyes PERRL, EOMs intact bilaterally, conjunctivae normal and no scleral icterus Neck no lymphadenopathy and supple Neck Narrative: Positive JVD General: trachea midline Resp No normal respiratory effort, no retractions, no use of accessory muscles and No clear to auscultation bilaterally Auscultation: diminished lung sounds; Negative for rales, rhonchi or wheezes Cardio regular rate, S1 normal heart sound, S2 normal heart sound, no murmurs, no rub and no clicks; Negative for no gallops Cardio Narrative: Positive S3 Rhythm: abnormal rhythm irregularly irregular GI normal to inspection, nondistended, normoactive bowel sounds and soft to palpation Extremity General Extremity: edema bilateral (4+ with extension into the abdomen) lower extremity; Negative for clubbing Skin no rashes or lesions noted, no wounds, skin turgor normal, no jaundice, no petechiae and no mottling Neuro oriented x3, CN's II-XII intact bilaterally, moves all extremities and no focal motor deficits Speech: speech normal Psych cooperative and affect normal Charges/Coding Procedures Hospitalists Procedures: 79348 Critial Care 1st Hr
[2023-01-27 07:28] LABS: Partial Thromboplast Time 169.6 Seconds (24.1-36.2)
[2023-01-27] MEDS: Potassium Chloride Oral Tablet 20 MEQ 60 MEQ PO (07:51)
[2023-01-27 09:24] LABS: Pathologist Comment/Body Fluid Reviewed
[2023-01-27] MEDS: Pantoprazole Sodium 40 MG Tablet PO (10:05)
--- NOTE | 2023-01-27 11:48 | CHAPLAIN ---
Type of Pastoral Visit ___ Initial Visit _x__ Follow-up Visit ___ On-call Visit ___ General Patient Visit ___ Spiritual Assessment ___ Family Conference ___ Bereavement ___ Rapid Response ___ Code Blue ___ Other (describe below) Pastoral Care Referral From _x__ Patient ___ Family ___ Nurse ___ Physician ___ Air Turning Machine Feeder ___ Pick Up Operator ___ Other (describe below) Sacrament/Intervention _x__ Active listening ___ Anointing ___ Pentecostalism ___ Bereavement ___ Communion ___ Maddison exploration ___ _x__ Life review _x__ Prayer ___ Reconciliation ___ Sacrament of Sick _x__ Supportive presence ___ Wedding ___ Other (describe below) Pastoral Comments patient reviews his current status of health and the recent deaths of family members; pt speaks of his concerns about transfer to another hospital for procedures and for care once he returns home; emotional support given; pt welcomes prayer and presence along with time to talk about casual things;
--- NOTE | 2023-01-27 12:50 | NURSING ---
BP dropped, patient called out stating he feels nauseated, emesis bag given, BP retake remained low, restarted levophed, TRUCK BODY BUILDER assisted this RN with boosting patient up in bed, from laying supine to HOB elevated 30 degrees patient became dizzy. Dr. Cantrell made aware, new orders received.
[2023-01-27] MEDS: TITRATION PARAMETER CHANGE 1 EACH IV (14:03)
[2023-01-27] MEDS: Ondansetron 4 MG/2 ML Vial IV (14:03)
--- NOTE | 2023-01-27 14:12 | CON.PCM.RE_ITS ---
Documented by User: JONATHAN De Jesus 01/27/23 14:44 Assessment & Plan Assessment/Plan (1) Heart failure, systolic, with acute decompensation: (2) Anasarca: (3) DONOVAN (acute kidney injury): (4) Hyponatremia: PLAN: Plan This is a 62-year-old male admitted to the hospital on January 24 after presenting with complaints of worsening shortness of breath, orthopnea and worsening lower extremity edema. Admitted for acute CHF exacerbation unknown type. CTA of chest in ER was negative for PE or atrial dissection but did show moderately large right pleural effusion. Patient was started on Lasix drip. Lasix drip was stopped yesterday. Echo from 01/24: EF 20%, stage III diastolic dysfunction, moderately dilated left ventricle, severe global hypokinesis of left ventricle, normal systolic function, left atrium mildly enlarged, right atrium severely enlarged. Underwent thoracentesis with approximately 2 L of fluid removed. Since admission, patient had episode of nausea with lightheadedness, hypotension, loss of pulse therefore CPR was initiated with successful return of spontaneous circulation after about 2 minutes, patient also had low long run of nonsustained V. tach as well as bradycardia he was then transferred to ICU and started on Levophed and dobutamine drips. Off dobutamine drip today. Cardiology is following and patient did have heart catheterization today, report pending. Nephrology consulted for evaluation of elevated creatinine, anasarca, hypoalbuminemia. Serum creatinine was 1.47 mg/dL on admission, creatinine peaked 1.67 mg/dL yesterday and today his creatinine is at 1.38 mg/dL. Baseline creatinine is unknown. There is a gap in lab work. Patient's last labs to review were from May 02, 2019, creatinine 1.00 mg/dL then. Quite possibly this could be DONOVAN versus baseline CKD. Since hospital admission, patient did have CTA of chest with contrast, cardiac catheterization today. We will follow creatinine trajectory. It would not be surprising to see fluctuations in serum creatinine trends given events that have happened during hospitalization, contrast exposure, hypotension as well as cardiorenal syndrome physiology. Once volume status improves likely will see more true baseline serum creatinine. At this time there is no acute indication for RADIOCHEMICAL TECHNICIAN, patient is nonoliguric (urine output 800 mL so far today), potassium and acid-base acceptable. He is hypervolemic and hopefully once blood pressures improve can restart diuretic. U A from this admission showed protein 100, positive blood. Albumin level 3.4 on admission but today is at 2.7. In 2019 albumin 3.8. We will check urine protein creatinine ratio. Hypervolemic, hyponatremia; sodium was 119 on admission and has improved to 127 as of today, patient is now off Lasix drip, weight down about 6 kg from admission likely improvement in sodium levels as volume status improved. Further orders forthcoming as hospitalization evolves, thank you for letting us participate in the care of Mr. Avilez. HPI Consult Data Date of Consult: 01/27/23 HPI Narrative HPI Narrative: BLAZE AVILEZ, is a 62 M who presented to the emergency room on January 24 with complaints of worsening shortness of breath, orthopnea and worsening lower ext remity edema. Patient was admitted for acute CHF exacerbation unknown type. CTA of chest in ER was negative for PE or atrial dissection but did show moderately large right pleural effusion. Patient was admitted to PCU and started on Lasix drip. Echo from 01 24 showed EF 20%, stage III diastolic dy sfunction, moderately dilated left ventricle, severe global hypokinesis of left ventricle, normal systolic function, left atrium mildly enlarged, right atrium severely enlarged. Patient has undergone thoracentesis with approximately 2 L of fluid removed. Since admission, patient had episode of nausea, lightheadedness, hypotension, loss of pulse therefore CPR was initiated with successful return of spontaneous circulation, patient also had low long run of nonsustained V. tach as well as bradycardia he was then transferred to ICU and started on Levophed drip. Cardiology consulted and patient did have heart catheterization today. Nephrology consulted for evaluation of elevated creatinine, anasarca, hypoalbuminemia. Patient is alert and oriented however complaining of feeling very tired and nauseated post heart cath today. Information is gathered from the chart and patient's nurse. [facility] Medical History Angioedema Food impaction of esophagus History of alcohol abuse History of tobacco abuse Hypertension Hypertension Morbid obesity Home Medications pantoprazole 40 mg tablet,delayed release 40 mg PO DAILY stomach 05/01/19 [Hi story Last Taken 04/30/19] amlodipine 5 mg tablet 10 mg PO DAILY blood pressure 01/24/23 [History Last Taken Unknown] simvastatin 20 mg tablet 20 mg PO QHS cholesterol 01/24/23 [History Last Taken Unknown] Allergy/AdvReac Type Severity Reaction Status Date / Time lisinopril Allergy Angioedema Verified 09/20/20 18:58 Family History Other Heart disease Surgical History H/O elbow surgery Social History Smoking Status: Former smoker ROS ROS Narrative As per HPI and past medical history Physical Exam Narrative Patient is alert and oriented, lethargic but answers questions appropriately. Lung sounds clear, diminished breath sounds posterior. No wheezes, rhonchi or rales noted S1, S2, RRR Abdomen soft, rounded, nondistended, positive bowel sounds Pitting edema noted bilateral thighs, legs and feet Indwelling Watson catheter with clear yellow urine in bag Lab / Micro Data Result Diagrams: 01/28/23 04:30 01/28/23 04:30 Labs: Laboratory Results - last 24 hr 01/25/23 12:30: Fl Pathologist Comment Reviewed 01/26/23 15:35: APTT 71.7 H 01/26/23 16:25: Urine Color Yellow, Urine Clarity Sl. Cloudy, Urine pH 5.0, Ur Specific [place] 1.015, Urine Protein 100 H, Urine Glucose (UA) Normal, Urine Ketones Negative, Urine Occult Blood 250 H, Urine Nitrite Negative, Urine Bilirubin Negative, Urine Urobilinogen 1 H, Ur Leukocyte Esterase 500 H, Urine RBC > 100 SEEN, Urine WBC 0-5 SEEN, Ur Squamous Epith Cells 0 SEEN, Urine Bacteria 0 SEEN, Hyaline Casts 0-5 SEEN, Urine Mucus 0 SEEN 01/26/23 21:00: APTT > 200.0 H* 01/27/23 03:50: WBC 14.3 H, RBC 5.08, Hgb 14.1, Hct 42.7, MCV 84.1, MCH 27.8, MCHC 33.0, RDW Std Deviation 44.7 H, RDW Coeff of Manoj 14.6, Plt Count 264, MPV 11.1, Immature Gran % (Auto) 0.400, Neut % (Auto) 86.3 H, Lymph % (Auto) 5.9 L, [place] % (Auto) 7.2, Eos % (Auto) 0.1, Baso % (Auto) 0.1, Absolute Neuts (auto) 12.3 H, Absolute Lymphs (auto) 0.84, Nucleated RBC % 0 01/27/23 03:50: Sodium 127 L, Potassium 3.4 L, Chloride 92 L, Carbon Dioxide 22.0, Anion Gap 13, BUN 39 H, Creatinine 1.38 H, Estim Creat Clear Calc 58.35, Est GFR (MDRD) Af Amer 67, Est GFR (MDRD) Non-Af 55 L, BUN/Creatinine Ratio 28.3 H, Glucose 121 H, Calcium 7.6 L, Phosphorus 7.1 H, Magnesium 2.2, Total Bilirubin 1.20 H, AST 40 H, ALT 31, Alkaline Phosphatase 165 H, Total Protein 5.9 L, Albumin 2.7 L, Globulin 3.2, Albumin/Globulin Ratio 0.8 L 01/27/23 06:30: APTT 169.6 H* Micro: Microbiology 01/26/23 11:15 Urine Catheter - Watson Legionella Antigen - Final 01/26/23 11:15 Urine Catheter - Watson Streptococcus pneumoniae Antigen (M - Final ABG Data ABG results: ABG 01/26/23 15:05 Specimen Type ART Sample Site Art Line pH 7.46 H Bicarbonate Actual 21.8 L Total CO2 23 Base Excess -2 O2 Saturation 97 O2 % 40 ABG pCO2 30.9 L ABG pO2 80 Respiration Rate 14 O2 Delivery Device BiPAP Vent Mode BiLevel POC PEEP 12 Clinical Comments 03/09 14 40% Radiology Impression Chest X-Ray 01/26/23 18:30 IMPRESSION: Right PICC line terminates at the level of the right hilum. No other definite changes since yesterday. Electronically Signed: Marquez Bustamante MD at 19:15 EDT , Documented by User: Dr. Bayron Eduardo MD 01/28/23 14:41 Assessment & Plan Assessment/Plan (1) Heart failure, systolic, with acute decompensation: (2) Anasarca: (3) DONOVAN (acute kidney injury): (4) Hyponatremia: HPI Consult Data Date of Consult: 01/28/23 [facility] Medical History Angioedema Food impaction of esophagus History of alcohol abuse History of tobacco abuse Hypertension Hypertension Morbid obesity Home Medications pantoprazole 40 mg tablet,delayed release 40 mg PO DAILY stomach 05/01/19 [History Last Taken 04/30/19] amlodipine 5 mg tablet 10 mg PO DAILY blood pressure 01/24/23 [History Last Taken Unknown] simvastatin 20 mg tablet 20 mg PO QHS cholesterol 01/24/23 [History Last Taken Unknown] Allergy/AdvReac Type Severity Reaction Status Date / Time lisinopril Allergy Angioedema Verified 09/20/20 18:58 Family History Other Heart disease Surgical History H/O elbow surgery Social History Smoking Status: Former smoker Lab / Micro Data Result Diagrams: 01/28/23 04:30 01/28/23 04:30
[2023-01-27 14:30] LABS: Blood Gas Specimen Type VEN; VBG BASE EXCESS 0 mmol/L (-1.0-3.5); VBG Bicarbonate 25 mmol/L (22-26); VBG PO2 34 mmHg (25-40); VBG SO2 64 % (50-70); VBG TCO2 26 mmol/L (23-33); VBG pCO2 40.8 mmHg (41-51); VBG pH 7.39 (7.32-7.42)
--- NOTE | 2023-01-27 15:35 | PCM.PN.CARD ---
Subjective Subjective Patient is doing better now. Earlier this afternoon he had an episode where his blood pressure dropped to the 60s systolic. He has been restarted on Levophed and his blood pressure is in the 90s over 70s. Symptomatically patient feels better. Objective Data Vital Signs: Vital Signs Temp Pulse Resp BP Pulse Ox O2 Del Method O2 Flow Rate 96.7 F L 115 H 17 93/71 94 Nasal Cannula 2 01/27/23 12:00 01/27/23 14:00 01/27/23 14:00 01/27/23 14:15 01/27/23 14:00 01/27/23 14:00 01/27/23 14:00 FiO2 93 01/27/23 07:19 Oxygen Flow Rate (L/min) 2 Oxygen Delivery Method [3] Room Air Oxygen Delivery Method [2] Room Air Oxygen Delivery Method [1 ( Room Air Initial Baseline)] Oxygen Delivery Method Nasal Cannula Weight: 290 lb 5.581 oz Body Mass Index (BMI) 40.4 Intake & Output: Intake and Output for Last 24 Hours 01/25/23 01/26/23 01/27/23 23:59 23:59 23:59 Intake Total 746.95 / 986.95 1524.25 / 1533.65 539.06 / 539.06 Output Total 3150 / 4050 4050 / 4050 800 / 800 Balance -2403.05 / -3063.05 -2525.75 / -2516.35 -260.94 / -260.94 Lab / Micro Data Result Diagrams: 01/27/23 03:50 01/27/23 03:50 Labs: Laboratory Results - last 24 hr 01/25/23 12:30: Fl Pathologist Comment Reviewed 01/26/23 15:35: APTT 71.7 H 01/26/23 16:25: Urine Color Yellow, Urine Clarity Sl. Cloudy, Urine pH 5.0, Ur Specific [place] 1.015, Urine Protein 100 H, Urine Glucose (UA) Normal, Urine Ketones Negative, Urine Occult Blood 250 H, Urine Nitrite Negative, Urine Bilirubin Negative, Urine Urobilinogen 1 H, Ur Leukocyte Esterase 500 H, Urine RBC > 100 SEEN, Urine WBC 0-5 SEEN, Ur Squamous Epith Cells 0 SEEN, Urine Bacteria 0 SEEN, Hyaline Casts 0-5 SEEN, Urine Mucus 0 SEEN 01/26/23 21:00: APTT > 200.0 H* 01/27/23 03:50: WBC 14.3 H, RBC 5.08, Hgb 14.1, Hct 42.7, MCV 84.1, MCH 27.8, MCHC 33.0, RDW Std Deviation 44.7 H, RDW Coeff of Manoj 14.6, Plt Count 264, MPV 11.1, Immature Gran % (Auto) 0.400, Neut % (Auto) 86.3 H, Lymph % (Auto) 5.9 L, [place] % (Auto) 7.2, Eos % (Auto) 0.1, Baso % (Auto) 0.1, Absolute Neuts (auto) 12.3 H, Absolute Lymphs (auto) 0.84, Nucleated RBC % 0 01/27/23 03:50: Sodium 127 L, Potassium 3.4 L, Chloride 92 L, Carbon Dioxide 22.0, Anion Gap 13, BUN 39 H, Creatinine 1.38 H, Estim Creat Clear Calc 58.35, Est GFR (MDRD) Af Amer 67, Est GFR (MDRD) Non-Af 55 L, BUN/Creatinine Ratio 28.3 H, Glucose 121 H, Calcium 7.6 L, Phosphorus 7.1 H, Magnesium 2.2, Total Bilirubin 1.20 H, AST 40 H, ALT 31, Alkaline Phosphatase 165 H, Total Protein 5.9 L, Albumin 2.7 L, Globulin 3.2, Albumin/Globulin Ratio 0.8 L 01/27/23 06:30: APTT 169.6 H* Micro: Microbiology 01/26/23 11:15 Urine Catheter - Watson Legionella Antigen - Final 01/26/23 11:15 Urine Catheter - Watson Streptococcus pneumoniae Antigen (M - Final ABG Data ABG results: ABG 01/27/23 14:26 Specimen Type IRAM VBG pH 7.39 VBG pO2 34 VBG HCO3 25 VBG Total CO2 26 VBG O2 Sat (Calc) 64 VBG Base Excess 0 POC Mix VBG pCO2 Pt Tmp 40.8 L Cardiology Labs/Tests 01/26/23 15:35: APTT 71.7 H 01/26/23 16:25: Urine Color Yellow, Urine Clarity Sl. Cloudy, Urine pH 5.0, Ur Specific [place] 1.015, Urine Protein 100 H, Urine Glucose (UA) Normal, Urine Ketones Negative, Urine Occult Blood 250 H, Urine Nitrite Negative, Urine Bilirubin Negative, Urine Urobilinogen 1 H, Ur Leukocyte Esterase 500 H, Urine RBC > 100 SEEN, Urine WBC 0-5 SEEN 01/26/23 21:00: APTT > 200.0 H* 01/27/23 03:50: WBC 14.3 H, RBC 5.08, Hgb 14.1, Hct 42.7, MCV 84.1, MCH 27.8, MCHC 33.0, Plt Count 264, MPV 11.1, Immature Gran % (Auto) 0.400, Neut % (Auto) 86.3 H, Lymph % (Auto) 5.9 L, [place] % (Auto) 7.2, Eos % (Auto) 0.1, Baso % (Auto) 0.1, Absolute Neuts (auto) 12.3 H, Nucleated RBC % 0 01/27/23 03:50: Sodium 127 L, Potassium 3.4 L, Chloride 92 L, Carbon Dioxide 22.0, Anion Gap 13, BUN 39 H, Creatinine 1.38 H, Est GFR (MDRD) Af Amer 67, Est GFR (MDRD) Non-Af 55 L, BUN/Creatinine Ratio 28.3 H, Glucose 121 H, Calcium 7.6 L, Phosphorus 7.1 H, Magnesium 2.2, Total Bilirubin 1.20 H 01/27/23 06:30: APTT 169.6 H* 01/27/23 14:26: VBG pH 7.39, VBG pO2 34, VBG HCO3 25, VBG O2 Sat (Calc) 64, VBG Base Excess 0 Rhythm: EKG: ECHO: Stress Test: Cardiac Cath: PCI: CT Surgery: Holter monitor: EPS: PPM: CXR: Chest CT Scan: Radiography Diagnostic Testing: Radiology Impression Chest X-Ray 01/26/23 18:30 IMPRESSION: Right PICC line terminates at the level of the right hilum. No other definite changes since yesterday. Electronically Signed: Marquez Bustamante MD at 19:15 EDT , Physical Exam Const alert and oriented x3 HEENT normocephalic Eyes no scleral icterus Resp Resp Narrative: Bibasal crackles, scattered wheeze. Cardio Cardio Narrative: Irregular rhythm Extremity Extremity Narrative: 3+ bilateral pitting edema Psych mental status grossly normal Assessment & Plan Assessment/Plan (1) Heart failure, systolic, with acute decompensation: PLAN: Patient is still in cardiogenic shock and requires Levophed. Recommend 40 mg IV daily of Lasix. (2) Paroxysmal atrial fibrillation with RVR: PLAN: Rate is controlled. Patient would benefit from anticoagulation. He could be started on Eliquis 5 mg p.o. twice daily starting from tomorrow. He just had his arterial sheath removed this afternoon. (3) Wide-complex tachycardia: PLAN: Likely secondary to patient's cardiomyopathy. Try to maintain potassium at around 4 and magnesium at 2. No beta-blockers at this time because of hypotension requiring pressor support. Charges/Coding Visit Charges Inpatient E&M: 91590 Subs Hosp L2
--- NOTE | 2023-01-27 15:49 | PN.HOSP_ITS ---
Reason for Visit Reason for Visit: Edema/shortness of breath Subjective Subjective No significant events overnight however patient did have an event after his sh eath was pulled. He became hypotensive and in respiratory distress again with decreased mental status. Pressors had been turned off this morning. Levophed reinitiated. I did obtain a mixed venous O2 sat which was only 64% and we therefore restarted dobutamine as well. Patient looked overall better this morning when I evaluated him. Objective Data Objective Data Vital Signs: Vital Signs Temp Pulse Resp BP Pulse Ox O2 Del Method O2 Flow Rate 96.7 F L 101 H 23 H 93/73 95 Nasal Cannula 2 01/27/23 12:00 01/27/23 15:00 01/27/23 15:00 01/27/23 15:00 01/27/23 15:00 01/27/23 15:00 01/27/23 15:00 FiO2 93 01/27/23 07:19 Oxygen Flow Rate (L/min) 2 Oxygen Delivery Method [3] Room Air Oxygen Delivery Method [2] Room Air Oxygen Delivery Method [1 ( Room Air Initial Baseline)] Oxygen Delivery Method Nasal Cannula Weight: 131.7 kg Body Mass Index (BMI) 40.4 Intake & Output: Intake and Output for Last 24 Hours 01/25/23 01/26/23 01/27/23 23:59 23:59 23:59 Intake Total 746.95 / 986.95 1524.25 / 1533.65 549.71 / 549.71 Output Total 3150 / 4050 4050 / 4050 800 / 800 Balance -2403.05 / -3063.05 -2525.75 / -2516.35 -250.29 / -250.29 Lab / Micro Data Result Diagrams: 01/27/23 03:50 01/27/23 03:50 Labs: Laboratory Results - last 24 hr 01/25/23 12:30: Fl Pathologist Comment Reviewed 01/26/23 15:35: APTT 71.7 H 01/26/23 16:25: Urine Color Yellow, Urine Clarity Sl. Cloudy, Urine pH 5.0, Ur Specific [place] 1.015, Urine Protein 100 H, Urine Glucose (UA) Normal, Urine Ketones Negative, Urine Occult Blood 250 H, Urine Nitrite Negative, Urine Bilirubin Negative, Urine Urobilinogen 1 H, Ur Leukocyte Esterase 500 H, Urine RBC > 100 SEEN, Urine WBC 0-5 SEEN, Ur Squamous Epith Cells 0 SEEN, Urine Bacteria 0 SEEN, Hyaline Casts 0-5 SEEN, Urine Mucus 0 SEEN 01/26/23 21:00: APTT > 200.0 H* 01/27/23 03:50: WBC 14.3 H, RBC 5.08, Hgb 14.1, Hct 42.7, MCV 84.1, MCH 27.8, MCHC 33.0, RDW Std Deviation 44.7 H, RDW Coeff of Manoj 14.6, Plt Count 264, MPV 11.1, Immature Gran % (Auto) 0.400, Neut % (Auto) 86.3 H, Lymph % (Auto) 5.9 L, [place] % (Auto) 7.2, Eos % (Auto) 0.1, Baso % (Auto) 0.1, Absolute Neuts (auto) 12.3 H, Absolute Lymphs (auto) 0.84, Nucleated RBC % 0 01/27/23 03:50: Sodium 127 L, Potassium 3.4 L, Chloride 92 L, Carbon Dioxide 22.0, Anion Gap 13, BUN 39 H, Creatinine 1.38 H, Estim Creat Clear Calc 58.35, Est GFR (MDRD) Af Amer 67, Est GFR (MDRD) Non-Af 55 L, BUN/Creatinine Ratio 28.3 H, Glucose 121 H, Calcium 7.6 L, Phosphorus 7.1 H, Magnesium 2.2, Total Bilirubin 1.20 H, AST 40 H, ALT 31, Alkaline Phosphatase 165 H, Total Protein 5. 9 L, Albumin 2.7 L, Globulin 3.2, Albumin/Globulin Ratio 0.8 L 01/27/23 06:30: APTT 169.6 H* Micro: Microbiology 01/26/23 11:15 Urine Catheter - Watson Legionella Antigen - Final 01/26/23 11:15 Urine Catheter - Watson Streptococcus pneumoniae Antigen (M - Final 01/24/23 15:42 Nasal Secretion SARS-CoV-2 Antigen (Rapid) - Final ABG Data ABG results: ABG 01/27/23 14:26 Specimen Type IRAM VBG pH 7.39 VBG pO2 34 VBG HCO3 25 VBG Total CO2 26 VBG O2 Sat (Calc) 64 VBG Base Excess 0 POC Mix VBG pCO2 Pt Tmp 40.8 L Radiography Diagnostic Testing: Radiology Impression Chest X-Ray 01/26/23 18:30 IMPRESSION: Right PICC line terminates at the level of the right hilum. No other definite changes since yesterday. Electronically Signed: Marquez Bustamante MD at 19:15 EDT Reading Location ID and State: [facility] / [place] , Service support , Physical Exam Const alert, oriented x3 and well nourished; Negative for average body habitus or healthy appearing Constitutional Narrative: Morbidly obese, upper middle-aged, white male, appears older than stated age, nontoxic,, appropriately interactive, nursing at bedside, appears chronically ill, patient actually looks as good today as I have seen him look since admission at the time of my evaluation this morning HEENT head/scalp atraumatic and moist oral mucous membranes Head and Scalp: normocephalic Eyes EOMs intact bilaterally Resp No normal respiratory effort, no retractions, no use of accessory muscles and No clear to auscultation bilaterally Resp Narrative: Diminished but clear at this time Auscultation: Negative for rales, rhonchi or wheezes Cardio regular rate, regular rhythm, S1 normal heart sound, S2 normal heart sound, no murmurs, no rub and no clicks; Negative for no gallops Cardio Narrative: Positive S3, mild tachycardia, rhythm is irregularly irregular GI normal to inspection, nondistended, normoactive bowel sounds and soft to palpation GI Narrative: Anasarca noted in a.m. time neuro wall up to his chest region Extremity Extremity Narrative: 3+ bilateral lower extremity pitting edema that extends up towards his hips and into his abdomen, no cyanosis or clubbing Skin no rashes or lesions noted, no wounds, skin turgor normal, no jaundice, no petechiae and no mottling Neuro oriented x3, moves all extremities and no focal motor deficits Speech: speech normal Psych affect normal Assessment & Plan Assessment/Plan (1) Heart failure, systolic, with acute decompensation: (2) Ascites: (3) Pleural effusion: (4) Orthopnea: (5) Elevated d-dimer: (6) Hyponatremia: (7) Elevated serum creatinine: (8) Hyperbilirubinemia: (9) Heart failure, diastolic, with acute decompensation: (10) Anasarca: (11) Paroxysmal atrial fibrillation with RVR: (12) Acute respiratory failure with hypoxia: (13) Wide-complex tachycardia: (14) Cardiogenic shock: PLAN: Plan Cardiogenic shock -Events yesterday resulted in transfer to the ICU -Respiratory status is better however blood pressure has remained tenuous -Has been on and off pressors -Mixed venous O2 sat shows an oxygen saturation of 64% indicating poor extraction -Restart dobutamine and on Levophed for hypotensive episode -Per discussion with cardiology they may try to challenge with Lasix again today and see if we can optimize him a little bit more but if not improved by tomorrow may need to transfer -Cardiac catheterization was unremarkable for any obstructive coronary artery disease -Exact etiology for depressed EF is unknown at this time -Cardiology following-appreciate input Acute decompensated systolic/diastolic heart failure -Newly diagnosed -Echocardiogram has resulted and shows an EF of 20%, global dysfunction with stage III diastolic dysfunction, mild left atrial enlargement, severe right atrial enlargement, mild to moderate mitral valve insufficiency, mild to moderate tricuspid valve insufficiency, pulmonary systolic pressure is 20 mmHg, severe global hypokinesis of the LV -Off Lasix drip due to events yesterday and hypotension -RN Lasix per cardiology -Continue strict I's and O's -Check daily weights -Continue fluid restriction -Sodium restricted diet -No significant weight drop in the last 24 hours but we did had to discontinue his Lasix drip secondary to hypotension -Dietitian education for heart failure appropriate diet -Consult cardiology is pending--> patient will likely need cardiac catheterization prior to discharge -Discussed with Dr. Perez on 01/25/2023 Large right pleural effusion-transudative -Status postthoracentesis on 01/25/2023 with 2100 cc removed -Transudative per lights criteria -We will need to monitor for recurrence -Continue diuresis Acute hypoxic respiratory failure with suspected pneumonia -After the thoracentesis the patient developed significant coughing and hypoxia -Chest x-ray shows new infiltrate in right base which was obscured by fluid pre viously -Initially started on vancomycin and Zosyn however patient's risk for healthcare acquired infection is extremely low so we will transition to ceftriaxone and azithromycin -I did obtain a CT of the ch is est to better evaluate to make sure that there was not a mass behind all the fluid. It looks like there is an infiltrate in the right middle and lower lobe as well as a small residual right pleural effusion -Day 2 of 7 for antibiotics -Aggressive pulmonary toilet -Mucinex -Check pneumo and Legionella antigens negative -No sputum able to be obtained -May consider discontinuation of IV antibiotics tomorrow if remains stable from a respiratory standpoint -Patient may have had some reexpansion pulmonary edema A-fib with RVR -EKG on presentation shows A-fib with RVR -Heart rates overall have been fairly well controlled under 100 -Continue heparin drip in the short-term especially with his poor EF until he is evaluated by cardiology for ongoing procedures -We will need Eliquis prior to discharge -Cardiology is following Wide-complex tachycardia -Suspect VT however could be A-fib with aberrancy -Patient has been asymptomatic with these events -With EF would be candidate for defibrillator -Cardiology is following Elevated serum creatinine -Baseline is unknown - kidney function better today -I suspect he is off the [place] curve therefore has cardiorenal syndrome -Repeat BMP in a.m. -Avoid nephrotoxins as able -Neurology consulted-appreciate input Hyponatremia -Hypervolemic hyponatremia secondary to CHF -Up to 127 today -Continue diuresis as needed as able -I anticipate with ongoing fluid removal that his sodium should improve Anasarca -Secondary above -Monitor clinically -Diurese as able Hyperbilirubinemia -I anticipate this is related to chronic passive congestion of the liver -Should trend down with diuresis -Continue to monitor Elevated D-dimer -CTA of the chest was negative for PE -Check bilateral lower extremity Dopplers to rule out DVT Ascites -Minimal on ultrasound -Review of the liver was not performed I will need to discuss with radiology however I do anticipate that his ascites is related to his heart failure at this point Hyperlipidemia -LDL is at goal -Continue current statin Hypertension -Hold amlodipine -Blood pressures on the low side of normal at this time GERD -Continue Protonix Morbid obesity -Some of his weight is volume related and should improve with diuresis however he meets criteria for obesity at least at baseline -Current BMI is 40.4 -Daily weights ordered with diuresis -Recommend weight loss -Complicates treatment, prognosis, outcomes History of alcohol abuse -Remote History of tobacco abuse -No current use -Recommend ongoing cessation DVT prophylaxis -Heparin drip CODE STATUS -Full code Charges/Coding Visit Charges Inpatient E&M: 77200 Subs Hosp L2
[2023-01-27 17:11] LABS: Protein, Urine (Random) 153.3 mg/dL (<11.9); Protein:Creat Ratio 1095 mg/g CRE (0-200)
[2023-01-27] MEDS: Atorvastatin Calcium 20 MG Tablet PO (21:24)
--- NOTE | 2023-01-27 23:35 | CPS ---
Pt requested not to use BIPAP for tonight.
[2023-01-28] VITALS (28 sets, daily range): BP systolic 82–118; BP diastolic 58–86; PULSE 91–110; RESP 14–25; TEMP 35.8–36.7; O2SAT 91–97; BMI 40.9
[2023-01-28 04:35] LABS: Absolute Lymphocyte Count 0.78 X10^3/uL (0.83-4.51); Absolute Neutrophil Count 11.9 X10^3/uL (2.0-7.7); Basophil# 0.01 X10^3/uL; Basophil% 0.1 % (0-1); Eosinophil# 0.02 X10^3/uL; Eosinophils% 0.1 % (0-5); Hematocrit 42.8 % (40-54); Hemoglobin 13.9 g/dL (13.0-16.5); Lymphocyte # 0.78 X10^3/ul (0.83-4.51); Lymphocyte % 5.7 % (19-41); Mean Corp Hgb Conc 32.5 g/dL (32-36); Mean Corpuscular Volume 86.3 fL (80-94); Mean Platelet Vol. 11.2 fl (6.2-12.0); Monocyte# 0.95 X10^3/uL; Monocyte% 6.9 % (0-10); NRBC Flagged by Analyzer 0 % (0-5); Neutrophil # 11.86 X10^3/uL (2.7-7.7); Neutrophil % 86.6 % (47-70); Platelet Count 204 K/mm3 (150-450); RBC Distribution Width CV 14.9 % (11.6-14.6); RBC Distribution Width SD 47.3 fl (35.1-43.9); Red Blood Count 4.96 M/mm3 (4.6-6.2); White Blood Count 13.7 K/mm3 (4.4-11.0)
--- NOTE | 2023-01-28 04:55 | RAD_ITS ---
STUDY: X-RAY CHEST REASON FOR EXAM: Male, 62 years old. History respiratory failure, ls TECHNIQUE: Single AP portable view of the chest. January 28, 2023 4:47 AM This is provided for interpretation 01/30/2023. COMPARISON: January 26, 2023 CT scan chest FINDINGS: There is a right-sided PICC line the tip is in the superior vena cava. There is persistent right upper lobe right midlung zone left lower lobe opacity. There is patchy groundglass opacities in the left upper lobe. There is blunting of the right costophrenic angle. There is mild cardiac enlargement. Normal mediastinum and promise. Normal visualized pulmonary arteries. There is atherosclerotic calcification of the aortic arch with tortuosity. There are diffuse degenerative changes of the visualized thoracic spine. Normal visualized ribs, clavicles, and shoulders. There is no demonstrated abnormality of the visualized soft tissue structures of the upper abdomen. RAD/Chest 1 View (Portable) IMPRESSION: Findings are highly suspicious for multifocal pneumonia. Right lower lobe consolidation and effusion. Electronically Signed: Lisa Wen MD at 4:33 EDT Reading Location ID and State: [facility] / [place] Tel , Service support ,
[2023-01-28 05:21] LABS: ALB/GLOB Ratio 0.8 RATIO (0.9-2.4); AST(SGOT) 31 U/L (15-37); Alanine Aminotransfer ALT/SGPT 29 U/L (16-61); Albumin, Serum 2.7 g/dL (3.2-5.0); Alkaline Phosphatase 172 U/L (45-117); Anion Gap 9 (5-15); BUN 43 mg/dL (7-18); BUN/Creat Ratio 29.3 RATIO (10-20); Calcium,Total 8.1 mg/dL (8.5-10.1); Chloride 91 mmol/L (98-107); Creatinine, Serum 1.47 mg/dL (0.70-1.30); EST Glomerular Filtration Rate 51 mL/min (>60); Est Glom Filt Rate - Afr Amer 62 mL/min (>60); Estimated Creatinine Clearance 54.78 ml/min; Globulin 3.6 g/dL (2.2-4.2); Glucose 111 mg/dL (74-106); Magnesium 2.5 mg/dL (1.6-2.6); Protein, Total 6.3 g/dL (6.4-8.2); Sodium Level 126 mmol/L (136-145)
--- NOTE | 2023-01-28 09:23 | PCM.PN.INT ---
Assessment & Plan Assessment/Plan (1) Heart failure, diastolic, with acute decompensation: (2) Cardiogenic shock: (3) DONOVAN (acute kidney injury): (4) Paroxysmal atrial fibrillation with RVR: PLAN: Plan RECOMMENDATIONS: 1.? Pressors were weaned off, goal map of 65 2.? Nephrology following, to restart diuresis today, follow electrolytes 3.? Empiric heparinization with rate control 4.? Dr. Perez of cardiology is considering transfer to tertiary care for advanced heart failure management and possible LVAD placement. Patient is amenable to that. 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 Patient denies COVID or recent viral infection in September. 5.? Abnormal LFTs are likely due to passive congestion. Bilirubin and alk phos are elevated. 6.? Patient refuses BiPAP with sleep, has no history of sleep apnea. As long as he does not have atelectasis on chest x-ray continuing supplemental oxygen is reasonable. Due to his cardiac condition he should be screened ABRAM with a diagnostic polysomnography. Although not ideal due to the patient's comorbid condition, screening with a type III device soon might help evaluate whether he has obstructive or central respiratory events of clinical significance. 7.? Removal of art line once off pressors 8. Keep hemoglobin greater than 8 9. Chest x-ray today 10. Rate control 11. 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 ?contribution of atrial fib. No evidence of Takotsubo on cardiac echo. His CKD may be due to low flow. Renal will evaluate today to determine if Lasix drip or other diuretic regimen is appropriate now that he is off pressors.? Cath was negative for significant coronary obstruction. No significant R side pathology, except severely dilated RA with normal RV and RVSP 30mmHg supports primary L sided congestion. No prior pulm disease or symptom history. 1B: Leukocytosis: He is on empiric antibiotics, can be de-escalated tomorrow if cultures remain negative no source is found. 1C: Paroxysmal atrial fibrillation: No prior history of A-fib, unknown whether he had occult atrial fibrillation prior to this admission remains on heparin. Need to rule out thromboembolic disease and KIM as contributors 2.??Acute hypoxic respiratory failure Due mostly to CHF, transudative pleural effusion tapped, atelectasis, possible component of KIM, undiagnosed.? He responded well to noninvasive ventilation, now weaned off, which treats both congestive heart failure and KIM. He did fine on nasal O2 overnight, with no cyclic desaturations. Not coughing, not febrile, no clear evidence of respiratory infection.? Patient on empiric antibiotics for now.? Patient does have a smoking history, so component of COPD cannot be excluded, but lungs are clear today with no crackles or wheezing.? Chest x-ray and CT scans reviewed, consistent with right middle and right lower lobe consolidation, effusion, and patchy infiltrates consistent with CHF and/or atypical pneumonia. 3.??New onset combined CHF/A-fib with RVR Management per cardiology, remains on heparin drip. Contributes to CHF. 4.??Acute kidney injury Patient with a baseline of a creatinine of 1 in the past.? Likely DONOVAN due to a combination of low flow and hypoxia on presentation. Improving. Patient has decreased albumin and anasarca.? Urine protein is not in the nephrotic range. Renal is consulting today. His renal function may improve with additional diuresis, and being off Levophed I agree with Dr. Cantrell that he is likely to the right of his Starling curve peak. 5.??Anasarca/ascites/hyperbilirubinemia Likely multifactorial etiology, passive congestion, elevated D-dimer, alcohol use. Abnormal LFT pattern is more congestive. Will obtain a right upper quadrant sono due to hyperbilirubinemia and alk phos. He has no pain. 6.??Morbid obesity/history of tobacco abuse/history of alcohol/GERD/obesity/late presentation Complicates care, management, recovery and prognosis.? Agree with additional outpatient management and diagnosis of possible COPD and KIM after he is more stable clinically. 7. Obstipation. Patient has not had a bowel movement since admission, he will have lactulose today and increase mobility out of bed to chair if blood pressure tolerates. Critical care time spent with patient at bedside, review of documentation, lab results, radiology and other test results, discussion with colleagues and ancillary staff, clinical management of patient, and updating family if applicable, was 60 minutes. This time does not include any procedures, if performed. [place] [address] for patient with tenuous blood pressure and hypoxic respiratory failure, active management of life-threatening problems, needing active intervention and awaiting transfer to tertiary care.. Subjective Subjective Patient feels gradually better since admission 4 days ago. He has been weaned off BiPAP, did not wear it last night, currently on 0-2 l of O2. Denies any chest pain chest pressure wheezing cough, nausea, headache. Able to sleep. He is awaiting possible transfer to tertiary care for possible LVAD for refractory cardiomyopathy. Asking about his cardiac history, he was fine until September 2022 when he did strenuous lifting while moving his mother's possessions out of the skilled nurse unit she had been living in. He has been short of breath ever since. He denied any symptoms of viral infection, sick contacts, fevers or sweats. 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 Never wore CPAP at home. No leg edema until September. Objective Data Objective Data Stable overnight, oxygenating well on room air. He weaned off Levophed at 10 PM. MAP's have been at target. Tolerating being out of bed to chair yesterday. No dizziness. Vital Signs: Vital Signs Temp Pulse Resp BP Pulse Ox O2 Del Method O2 Flow Rate 96.8 F L 108 H 21 H 97/86 H 93 Nasal Cannula 3 01/28/23 08:00 01/28/23 08:00 01/28/23 08:00 01/28/23 08:00 01/28/23 08:00 01/28/23 08:00 01/28/23 08:00 FiO2 93 01/27/23 07:19 Oxygen Flow Rate (L/min) 3 Oxygen Delivery Method [3] Room Air Oxygen Delivery Method [2] Room Air Oxygen Delivery Method [1 ( Room Air Initial Baseline)] Oxygen Delivery Method Nasal Cannula Weight: 293 lb 14.019 oz Body Mass Index (BMI) 40.9 Intake & Output: Intake and Output for Last 24 Hours 01/26/23 01/27/23 01/28/23 23:59 23:59 23:59 Intake Total 1524.25 / 1533.65 1664.37 / 1664.37 200 / 200 Output Total 4050 / 4050 1475 / 1475 400 / 400 Balance -2525.75 / -2516.35 189.37 / 189.37 -200 / -200 He is on a 1500 mL restricted 2 g sodium diet He states he has not moved his bowels since he has been in the hospital. Is passing gas, no abdominal pain. Lab / Micro Data Attestation: I reviewed the patient's lab results. Result Diagrams: 01/28/23 04:30 01/28/23 04:30 Labs: Laboratory Results - last 24 hr 01/25/23 12:30: Fl Pathologist Comment Reviewed 01/27/23 16:00: U Random Total Protein 153.3 H, Urine Creatinine 140.00, Protein/Creatinin Ratio 1095 H 01/28/23 04:30: Sodium 126 L, Potassium 4.0, Chloride 91 L, Carbon Dioxide 26.0, Anion Gap 9, BUN 43 H, Creatinine 1.47 H, Estim Creat Clear Calc 54.78, Est GFR (MDRD) Af Amer 62, Est GFR (MDRD) Non-Af 51 L, BUN/Creatinine Ratio 29.3 H, Glucose 111 H, Calcium 8.1 L, Magnesium 2.5, Total Bilirubin 1.10 H, AST 31, ALT 29, Alkaline Phosphatase 172 H, Total Protein 6.3 L, Albumin 2.7 L, Globulin 3.6, Albumin/Globulin Ratio 0.8 L 01/28/23 04:30: WBC 13.7 H, RBC 4.96, Hgb 13.9, Hct 42.8, MCV 86.3, MCH 28.0, MCHC 32.5, RDW Std Deviation 47.3 H, RDW Coeff of Manoj 14.9 H, Plt Count 204, MPV 11.2, Immature Gran % (Auto) 0.600, Neut % (Auto) 86.6 H, Lymph % (Auto) 5.7 L, [place] % (Auto) 6.9, Eos % (Auto) 0.1, Baso % (Auto) 0.1, Absolute Neuts (auto) 11.9 H, Absolute Lymphs (auto) 0.78 L, Nucleated RBC % 0 Micro: Microbiology 01/26/23 11:15 Urine Catheter - Watson Legionella Antigen - Final 01/26/23 11:15 Urine Catheter - Watson Streptococcus pneumoniae Antigen (M - Final 01/24/23 15:42 Nasal Secretion SARS-CoV-2 Antigen (Rapid) - Final ABG Data ABG results: ABG 01/27/23 14:26 Specimen Type IRAM VBG pH 7.39 VBG pO2 34 VBG HCO3 25 VBG Total CO2 26 VBG O2 Sat (Calc) 64 VBG Base Excess 0 POC Mix VBG pCO2 Pt Tmp 40.8 L Radiography Diagnostic Testing: Echo 01/24/23: (personally reviewed 01/28/23) Interpretation Summary Moderately dilated left ventricle. The estimated ejection fraction is 20 %. Stage 3 diastolic dysfunction. There is severe global hypokinesis of the left ventricle. The right atrium is severely enlarged. also: 1-2+ MR, TR, RVSP 30mmHg Bilateral leg Dopplers on January 26, 2023 showed no evidence of DVT. Pulsatile flow was noted, consistent with generally elevated venous pressures. CT chest without contrast 01/26/2023: Images and report personally reviewed. IMPRESSION: Progressive infiltration in the right middle lobe and right lower lobe. Small residual right pleural effusion. Stable bilateral areas of groundglass appearance in the upper lobes. Minimal pleural thickening at the left lung base. Ascites. Physical Exam Narrative Well-developed obese BMI 41, no respiratory distress. HEENT is unremarkable, extraocular's are intact, anicteric, mucous membranes moist, no thrush. Neck is supple with no JVD thyromegaly or mass. Lungs are clear bilaterally with no wheezes rales or rhonchi. Good excursion. He is compliant with incentive spirometry. No accessory muscle use. Able to sit up for exam with mild difficulty due to weakness. Heart normal S1-S2 regular no murmurs rubs or gallops. Distant heart sounds. Abdomen is soft, nontender, distended, no rebound. Bowel sounds are diminished. Extremities have 4+ edema, with some superficial skin breakdown anterior shins that is clean and dry. Neurologic: Alert and oriented x3, articulate, able to use a phone. Grossly nonfocal.
[2023-01-28] MEDS: Pantoprazole Sodium 40 MG Tablet PO (09:24)
--- NOTE | 2023-01-28 09:43 | CASEMGMT ---
JOHN CM NOTE: Insurance review for hospitals In-network with?[address] [employer] if transfer is recommended is as follows: [facility], [place], [facility], [facility], [facility], [facility], [facility]), and . Santy STONEN JOHN CM
--- NOTE | 2023-01-28 10:20 | RAD_ITS ---
STUDY: X-RAY CHEST REASON FOR EXAM: Male, 62 years old. Acute respiratory failure with hypoxemia TECHNIQUE: Single AP portable view of the chest. COMPARISON: Comparison is made with prior study dated January 28, 2023 at 4:47 AM. FINDINGS: EKG electrodes are seen. A right-sided PICC line catheter is in situ with the tip at the junction of the superior vena cava and right atrium. Persistent bilateral pulmonary infiltrates worse in the right lower lobe and left upper lobe. Blunting of the right corresponding ankle. Normal size heart. Normal mediastinum and promise. Normal visualized pulmonary arteries. There is atherosclerotic calcification of the aortic arch with tortuosity. There are diffuse degenerative changes of the visualized thoracic spine. Normal visualized ribs, clavicles, and shoulders. There is no demonstrated abnormality of the visualized soft tissue structures of the upper abdomen. RAD/Chest 1 View (Portable) IMPRESSION: Persistent bilateral pulmonary infiltrates worse in the right lower lobe and left upper lobe. Electronically Signed: Angel Brown MD at 10:46 EDT ,
--- NOTE | 2023-01-28 10:30 | PCM.PN.REN ---
Documented by User: JONATHAN De Jesus 01/28/23 10:48 Subjective Subjective Patient resting in bed. States feeling better today and more talkative this am. Bp improved and off IV pressors. Objective Data Objective Data Vital Signs: Vital Signs Temp Pulse Resp BP Pulse Ox O2 Del Method O2 Flow Rate 97.1 F L 108 H 22 H 103/80 93 Nasal Cannula 3 01/28/23 10:00 01/28/23 10:00 01/28/23 10:00 01/28/23 10:00 01/28/23 10:00 01/28/23 10:00 01/28/23 10:00 FiO2 93 01/27/23 07:19 Oxygen Flow Rate (L/min) 3 Oxygen Delivery Method [3] Room Air Oxygen Delivery Method [2] Room Air Oxygen Delivery Method [1 ( Room Air Initial Baseline)] Oxygen Delivery Method Nasal Cannula Weight: 133.3 kg Body Mass Index (BMI) 40.9 Intake & Output: Intake and Output for Last 24 Hours 01/26/23 01/27/23 01/28/23 23:59 23:59 23:59 Intake Total 1524.25 / 1533.65 1664.37 / 1664.37 250 / 250 Output Total 4050 / 4050 1475 / 1475 400 / 400 Balance -2525.75 / -2516.35 189.37 / 189.37 -150 / -150 Lab / Micro Data Result Diagrams: 01/28/23 04:30 01/28/23 04:30 Labs: Laboratory Results - last 24 hr 01/27/23 16:00: U Random Total Protein 153.3 H, Urine Creatinine 140.00, Protein/Creatinin Ratio 1095 H 01/28/23 04:30: Sodium 126 L, Potassium 4.0, Chloride 91 L, Carbon Dioxide 26.0, Anion Gap 9, BUN 43 H, Creatinine 1.47 H, Estim Creat Clear Calc 54.78, Est GFR (MDRD) Af Amer 62, Est GFR (MDRD) Non-Af 51 L, BUN/Creatinine Ratio 29.3 H, Glucose 111 H, Calcium 8.1 L, Magnesium 2.5, Total Bilirubin 1.10 H, AST 31, ALT 29, Alkaline Phosphatase 172 H, Total Protein 6.3 L, Albumin 2.7 L, Globulin 3.6, Albumin/Globulin Ratio 0.8 L 01/28/23 04:30: WBC 13.7 H, RBC 4.96, Hgb 13.9, Hct 42.8, MCV 86.3, MCH 28.0, MCHC 32.5, RDW Std Deviation 47.3 H, RDW Coeff of Manoj 14.9 H, Plt Count 204, MPV 11.2, Immature Gran % (Auto) 0.600, Neut % (Auto) 86.6 H, Lymph % (Auto) 5.7 L, [place] % (Auto) 6.9, Eos % (Auto) 0.1, Baso % (Auto) 0.1, Absolute Neuts (auto) 11.9 H, Absolute Lymphs (auto) 0.78 L, Nucleated RBC % 0 Micro: Microbiology 01/26/23 11:15 Urine Catheter - Watson Legionella Antigen - Final 01/26/23 11:15 Urine Catheter - Watson Streptococcus pneumoniae Antigen (M - Final 01/24/23 15:42 Nasal Secretion SARS-CoV-2 Antigen (Rapid) - Final ABG Data ABG results: ABG 01/27/23 14:26 Specimen Type IRAM VBG pH 7.39 VBG pO2 34 VBG HCO3 25 VBG Total CO2 26 VBG O2 Sat (Calc) 64 VBG Base Excess 0 POC Mix VBG pCO2 Pt Tmp 40.8 L Physical Exam Narrative Patient is alert and oriented, no apparent distress. Lung sounds clear, diminished breath sounds posterior. No wheezes, rhonchi or rales noted S1, S2, RRR Abdomen soft, rounded, nondistended, positive bowel sounds Pitting edema noted bilateral thighs, legs and feet Indwelling Watson catheter with clear yellow urine in bag Assessment & Plan Assessment/Plan (1) Heart failure, systolic, with acute decompensation: (2) Anasarca: (3) DONOVAN (acute kidney injury): (4) Hyponatremia: PLAN: Plan This is a 62-year-old male with PMH for HTN admitted to the hospital on January 24 after presenting with complaints of worsening shortness of breath, orthopnea and worsening lower extremity edema. - Cardiogenic shock: Admitted for acute CHF exacerbation unknown type at time of admission. CTA of chest in ER was negative for PE or atrial dissection but did show moderately large right pleural effusion. Patient was started on Lasix drip. Lasix drip was stopped 2 days ago Echo from 01/24: EF 20%, stage III diastolic dysfunction, moderately dilated left ventricle, severe global hypokinesis of left ventricle, normal systolic function, left atrium mildly enlarged, right atrium severely enlarged. Underwent thoracentesis with approximately 2 L of fluid removed. Since admission, patient had episode of nausea with lightheadedness, hypotension, loss of pulse therefore CPR was initiated with successful return of spontaneous circulation after about 2 minutes, patient also had run of nonsustained V. tach as well as bradycardia he was then transferred to ICU and started on Levophed and dobutamine drips. Off dobutamine drip. Heart cath from 01/27 unremarkable for obstructive CAD, no significant R side pathology, except severely dilated RA with normal RV and RVSP 30mmHg, etiology for depressed EF not known at this time, ?viral. Considering transfer to tertiary care center - Nephrology consulted for evaluation of elevated creatinine, anasarca, hypoalbuminemia, proteinuria. Serum creatinine was 1.47 mg/dL on admission, creatinine peaked 1.67 mg/dL, today his creatinine is at 1.47 mg/dL. Baseline creatinine is unknown. There is a gap in lab work. Patient's last labs to review were from May 02, 2019, creatinine 1.00 mg/dL then. Quite possibly this could be baseline CKD vs DONOVAN. Since hospital admission, patient did have CTA of chest with contrast, cardiac catheterization (01/27). We will follow creatinine trajectory. It would not be surprising to see fluctuations in serum creatinine trends given events that have happened during hospitalization: contrast exposure, hypotension, vandana and tachycardia as well as cardiorenal syndrome physiology and despite these events overall renal function has remained stable. Once volume status improves likely will see more true baseline serum creatinine. At this time there is no acute indication for INJECTION MOLDING ENGINEER, patient is nonoliguric (urine output at least 1.5L yesterday), potassium and acid-base acceptable. Per cumulative I&O patient is net -5.5 L. He is hypervolemic and since bps improved can continue with diuretics. UA from this admission showed protein 100, positive blood. Albumin level 3.4 on admission but today is at 2.7. In 2019 albumin 3.8. Urine pro/cr ratio 1.1gm. - Hypervolemic, hyponatremia; sodium was 119 on admission and has improved to 126 as of today, patient is now off Lasix drip and intermitted diuretics, weight down about 4 kg from admission likely improvement in sodium levels as volume status improved. - discussed plan with Dr. Larose and Dr. Luica Documented by User: Dr. Bayron Eduardo MD 01/28/23 14:44 Objective Data Lab / Micro Data Result Diagrams: 01/28/23 04:30 01/28/23 04:30 Assessment & Plan Assessment/Plan (1) Heart failure, systolic, with acute decompensation: (2) Anasarca: (3) DONOVAN (acute kidney injury): (4) Hyponatremia: PLAN: Plan This is a 62-year-old male with PMH for HTN admitted to the hospital on January 24 after presenting with complaints of worsening shortness of breath, orthopnea and worsening lower extremity edema. - Cardiogenic shock: Admitted for acute CHF exacerbation unknown type at time of admission. CTA of chest in ER was negative for PE or atrial dissection but did show moderately large right pleural effusion. Patient was started on Lasix drip. Lasix drip was stopped 2 days ago Echo from 01/24: EF 20%, stage III diastolic dysfunction, moderately dilated left ventricle, severe global hypokinesis of left ventricle, normal systolic function, left atrium mildly enlarged, right atrium severely enlarged. Underwent thoracentesis with approximately 2 L of fluid removed. Since admission, patient had episode of nausea with lightheadedness, hypotension, loss of pulse therefore CPR was initiated with successful return of spontaneous circulation after about 2 minutes, patient also had run of nonsustained V. tach as well as bradycardia he was then transferred to ICU and started on Levophed and dobutamine drips. Off dobutamine drip. Heart cath from 01/27 unremarkable for obstructive CAD, no significant R side pathology, except severely dilated RA with normal RV and RVSP 30mmHg, etiology for depressed EF not known at this time, ?viral. Considering transfer to tertiary care center - Nephrology consulted for evaluation of elevated creatinine, anasarca, hypoalbuminemia, proteinuria. Serum creatinine was 1.47 mg/dL on admission, creatinine peaked 1.67 mg/dL, today his creatinine is at 1.47 mg/dL. Baseline creatinine is unknown. There is a gap in lab work. Patient's last labs to review were from May 02, 2019, creatinine 1.00 mg/dL then. Quite possibly this could be baseline CKD vs DONOVAN. Since hospital admission, patient did have CTA of chest with contrast, cardiac catheterization (01/27). We will follow creatinine trajectory. It would not be surprising to see fluctuations in serum creatinine trends given events that have happened during hospitalization: contrast exposure, hypotension, vandana and tachycardia as well as cardiorenal syndrome physiology and despite these events overall renal function has remained stable. Once volume status improves likely will see more true baseline serum creatinine. At this time there is no acute indication for INJECTION MOLDING ENGINEER, patient is nonoliguric (urine output at least 1.5L yesterday), potassium and acid-base acceptable. Per cumulative I&O patient is net -5.5 L. He is hypervolemic and since bps improved can continue with diuretics. UA from this admission showed protein 100, positive blood. Albumin level 3.4 on admission but today is at 2.7. In 2019 albumin 3.8. Urine pro/cr ratio 1.1gm. - Hypervolemic, hyponatremia; sodium was 119 on admission and has improved to 126 as of today, patient is now off Lasix drip and intermitted diuretics, weight down about 4 kg from admission likely improvement in sodium levels as volume status improved. - discussed plan with Dr. Larose and Dr. Lucia Nephrology attending addendum: Patient seen and examined. PET STORE MERCHANDISER's note reflects my independent evaluation and management decision. The patient has acute kidney injury. Although the patient has hypoalbuminemia, urine protein to creatinine ratio is only 1.1 g/g. This is not consistent with nephrotic syndrome. Agree with treatment of cardiorenal DONOVAN by decongesting the patient would IV diuretic. We will monitor renal function closely with you. There is no need for kidney replacement therapy currently. Recheck renal function, volume status, electrolytes, and acid-base status again tomorrow.
[2023-01-28] MEDS: Ondansetron 4 MG/2 ML Vial IV (11:14)
[2023-01-28] MEDS: 0.9% Saline Lock 10 ML Syringe IV (11:14)
[2023-01-28 11:40] LABS: Bedside Glucose 151 mg/dL (74-106)
[2023-01-28] MEDS: Furosemide 500 MG in Empty Viaflex 50 mL 1 EACH CONT INF (12:07)
--- NOTE | 2023-01-28 12:46 | CPS ---
Bipap settings changed to 12/[address] Lucia.
--- NOTE | 2023-01-28 13:27 | PCM.PN.HOSP ---
Reason for Visit Reason for Visit: Edema/shortness of breath Subjective Subjective No events overnight. Patient's oxygen has been weaned to 2 L. States she did not sleep well but otherwise is doing okay. Did not wear BiPAP overnight. Pressors were turned off this morning and blood pressures have remained stable. Low-dose Lasix drip initiated. Objective Data Objective Data Vital Signs: Vital Signs Temp Pulse Resp BP Pulse Ox O2 Del Method O2 Flow Rate 96.8 F L 97 19 H 99/76 96 Bi-pap 3 01/28/23 12:00 01/28/23 13:00 01/28/23 13:00 01/28/23 13:00 01/28/23 13:00 01/28/23 13:00 01/28/23 12:00 FiO2 30 01/28/23 13:00 Oxygen Flow Rate (L/min) 3 Oxygen Delivery Method [3] Room Air Oxygen Delivery Method [2] Room Air Oxygen Delivery Method [1 ( Room Air Initial Baseline)] Oxygen Delivery Method Bi-pap Weight: 133.3 kg Body Mass Index (BMI) 40.9 Intake & Output: Intake and Output for Last 24 Hours 01/26/23 01/27/23 01/28/23 23:59 23:59 23:59 Intake Total 1524.25 / 1533.65 1664.37 / 1664.37 505 / 505 Output Total 4050 / 4050 1475 / 1475 800 / 800 Balance -2525.75 / -2516.35 189.37 / 189.37 -295 / -295 Lab / Micro Data Result Diagrams: 01/28/23 04:30 01/28/23 04:30 Labs: Laboratory Results - last 24 hr 01/27/23 16:00: U Random Total Protein 153.3 H, Urine Creatinine 140.00, Protein/Creatinin Ratio 1095 H 01/28/23 04:30: Sodium 126 L, Potassium 4.0, Chloride 91 L, Carbon Dioxide 26.0, Anion Gap 9, BUN 43 H, Creatinine 1.47 H, Estim Creat Clear Calc 54.78, Est GFR (MDRD) Af Amer 62, Est GFR (MDRD) Non-Af 51 L, BUN/Creatinine Ratio 29.3 H, Glucose 111 H, Calcium 8.1 L, Magnesium 2.5, Total Bilirubin 1.10 H, AST 31, ALT 29, Alkaline Phosphatase 172 H, Total Protein 6.3 L, Albumin 2.7 L, Globulin 3.6, Albumin/Globulin Ratio 0.8 L 01/28/23 04:30: WBC 13.7 H, RBC 4.96, Hgb 13.9, Hct 42.8, MCV 86.3, MCH 28.0, MCHC 32.5, RDW Std Deviation 47.3 H, RDW Coeff of Manoj 14.9 H, Plt Count 204, MPV 11.2, Immature Gran % (Auto) 0.600, Neut % (Auto) 86.6 H, Lymph % (Auto) 5.7 L, [place] % (Auto) 6.9, Eos % (Auto) 0.1, Baso % (Auto) 0.1, Absolute Neuts (auto) 11.9 H, Absolute Lymphs (auto) 0.78 L, Nucleated RBC % 0 01/28/23 11:21: POC Glucose 151 H Micro: Microbiology 01/26/23 11:15 Urine Catheter - Watson Legionella Antigen - Final 01/26/23 11:15 Urine Catheter - Watson Streptococcus pneumoniae Antigen (M - Final 01/24/23 15:42 Nasal Secretion SARS-CoV-2 Antigen (Rapid) - Final ABG Data ABG results: ABG 01/27/23 14:26 Specimen Type IRAM VBG pH 7.39 VBG pO2 34 VBG HCO3 25 VBG Total CO2 26 VBG O2 Sat (Calc) 64 VBG Base Excess 0 POC Mix VBG pCO2 Pt Tmp 40.8 L Radiography Diagnostic Testing: Radiology Impression Chest X-Ray 01/28/23 10:20 IMPRESSION: Persistent bilateral pulmonary infiltrates worse in the right lower lobe and left upper lobe. Electronically Signed: Angel Brown MD at 10:46 EDT , Physical Exam Const alert, oriented x3 and well nourished; Negative for average body habitus or healthy appearing Constitutional Narrative: Morbidly obese, upper middle-aged, white male, appears older than stated age, nontoxic, appropriately interactive, watching television, appears chronically ill HEENT head/scalp atraumatic and moist oral mucous membranes HEENT Narrative: Mallampati 2-3, no thrush Head and Scalp: normocephalic Resp normal respiratory effort, no retractions, no use of accessory muscles and No clear to auscultation bilaterally Resp Narrative: Diminished but clear at this time Auscultation: Negative for rales, rhonchi or wheezes Cardio regular rate, S1 normal heart sound, S2 normal heart sound, no murmurs, no rub and no clicks; Negative for no gallops Cardio Narrative: rhythm is irregularly irregular GI normal to inspection, nondistended, normoactive bowel sounds and soft to palpation GI Narrative: Anasarca remains up to chest and anterior abdominal wall Extremity Extremity Narrative: 3+ bilateral lower extremity pitting edema that extends up towards his hips and into his abdomen, no cyanosis or clubbing Neuro oriented x3, moves all extremities and no focal motor deficits Speech: speech normal Psych affect normal Psych Narrative: Affect is flat and mood seems somewhat depressed Assessment & Plan Assessment/Plan (1) Heart failure, systolic, with acute decompensation: (2) Ascites: (3) Pleural effusion: (4) Orthopnea: (5) Elevated d-dimer: (6) Hyponatremia: (7) Elevated serum creatinine: (8) Hyperbilirubinemia: (9) Heart failure, diastolic, with acute decompensation: (10) Anasarca: (11) Paroxysmal atrial fibrillation with RVR: (12) Acute respiratory failure with hypoxia: (13) Wide-complex tachycardia: (14) Cardiogenic shock: PLAN: Plan Cardiogenic shock -Stable overnight -Respiratory status has improved -Pressors off early this morning -Mixed venous O2 sat shows an oxygen saturation of 64% indicating poor extraction on 01/27/2023 -Low-dose Lasix drip started -We will start Levophed if needed on Lasix drip -Cardiac catheterization was unremarkable for any obstructive coronary artery disease -Exact etiology for depressed EF is unknown at this time -Cardiology following-appreciate input--> Per discussion with Dr. Perez today he feels that we can continue to manage him here at this time and continue to reevaluate him daily with gentle diuresis today and he is hopeful that we may be able to start some goal-directed therapy at some point soon. Acute decompensated systolic/diastolic heart failure -Newly diagnosed -Echocardiogram has resulted and shows an EF of 20%, global dysfunction with stage III diastolic dysfunction, mild left atrial enlargement, severe right atrial enlargement, mild to moderate mitral valve insufficiency, mild to moderate tricuspid valve insufficiency, pulmonary systolic pressure is 20 mmHg, severe global hypokinesis of the LV -Low-dose Lasix drip reinitiated -Patient is negative just over 5 and half liters for the hospital stay however 2.1 L of this was off his thoracentesis -Continue strict I's and O's -Check daily weights -Continue fluid restriction -Sodium restricted diet -Cardiology is following-appreciate input Large right pleural effusion-transudative -Status postthoracentesis on 01/25/2023 with 2100 cc removed -Transudative per lights criteria -We will need to monitor for recurrence -Continue diuresis Acute hypoxic respiratory failure with suspected pneumonia -After the thoracentesis the patient developed significant coughing and hypoxia -Chest x-ray shows new infiltrate in right base which was obscured by fluid previously -We will continue to CAP coverage with ceftriaxone to complete a course of 7 days and day 3 of 7 -Continue azithromycin -I did obtain a CT of the ch is est to better evaluate to make sure that there was not a mass behind all the fluid. It looks like there is an infiltrate in the right middle and lower lobe as well as a small residual right pleural effusion -Aggressive pulmonary toilet -Mucinex -Strep pneumo and Legionella antigens are negative -No sputum able to be obtained -Patient may have had some reexpansion pulmonary edema A-fib with RVR -EKG on presentation shows A-fib with RVR -Heart rates overall have been fairly well controlled under 100 -Continue heparin drip in the short-term especially with his poor EF until he is evaluated by cardiology for ongoing procedures -We will need Eliquis prior to discharge -Cardiology is following Wide-complex tachycardia -Suspect VT however could be A-fib with aberrancy -Patient has been asymptomatic with these events -With EF would be candidate for defibrillator -Cardiology is following Elevated serum creatinine -Baseline is unknown -Kidney function is relatively stable -I suspect he is off the Star[place] curve therefore has cardiorenal syndrome -Repeat BMP in a.m. -Avoid nephrotoxins as able -Nephrology is following-appreciate input Hypervolemic hyponatremia -secondary to CHF -126 today -Lasix drip reinitiated -I anticipate with ongoing fluid removal that his sodium should improve -Repeat BMP in a.m. Anasarca -Secondary above -Monitor clinically -Diurese as able Hyperbilirubinemia -I anticipate this is related to chronic passive congestion of the liver -Should trend down with diuresis -Continue to monitor Elevated D-dimer -CTA of the chest was negative for PE -Check bilateral lower extremity Dopplers to rule out DVT Ascites -Minimal on ultrasound -Review of the liver was not performed I will need to discuss with radiology however I do anticipate that his ascites is related to his heart failure at this point Hyperlipidemia -LDL is at goal -Continue current statin Hypertension -Hold amlodipine -Blood pressures on the low side of normal at this time GERD -Continue Protonix Morbid obesity -Some of his weight is volume related and should improve with diuresis however he meets criteria for obesity at least at baseline -Current BMI is 40.4 -Daily weights ordered with diuresis -Recommend weight loss -Complicates treatment, prognosis, outcomes History of alcohol abuse -Remote History of tobacco abuse -No current use -Recommend ongoing cessation DVT prophylaxis -Heparin drip CODE STATUS -Full code Charges/Coding Visit Charges Inpatient E&M: 27990 Subs Hosp L2
--- NOTE | 2023-01-28 14:48 | PCM.PN.REN ---
Subjective Subjective Following for DONOVAN and proteinuria. The patient still has significant lower extremity edema. He denies shortness of breath at rest. There is no chest pain, nausea or vomiting. Objective Data Objective Data Vital Signs: Vital Signs Temp Pulse Resp BP Pulse Ox O2 Del Method O2 Flow Rate 96.9 F L 100 21 H 118/78 92 Nasal Cannula 3 01/28/23 14:00 01/28/23 14:00 01/28/23 14:00 01/28/23 14:00 01/28/23 14:00 01/28/23 14:00 01/28/23 14:00 FiO2 30 01/28/23 13:00 Oxygen Flow Rate (L/min) 3 Oxygen Delivery Method [3] Room Air Oxygen Delivery Method [2] Room Air Oxygen Delivery Method [1 ( Room Air Initial Baseline)] Oxygen Delivery Method Nasal Cannula Weight: 133.3 kg Body Mass Index (BMI) 40.9 Intake & Output: Intake and Output for Last 24 Hours 01/26/23 01/27/23 01/28/23 23:59 23:59 23:59 Intake Total 1524.25 / 1533.65 1664.37 / 1664.37 505 / 505 Output Total 4050 / 4050 1475 / 1475 800 / 800 Balance -2525.75 / -2516.35 189.37 / 189.37 -295 / -295 Lab / Micro Data Result Diagrams: 01/28/23 04:30 01/28/23 04:30 Labs: Laboratory Results - last 24 hr 01/27/23 16:00: U Random Total Protein 153.3 H, Urine Creatinine 140.00, Protein/Creatinin Ratio 1095 H 01/28/23 04:30: Sodium 126 L, Potassium 4.0, Chloride 91 L, Carbon Dioxide 26.0, Anion Gap 9, BUN 43 H, Creatinine 1.47 H, Estim Creat Clear Calc 54.78, Est GFR (MDRD) Af Amer 62, Est GFR (MDRD) Non-Af 51 L, BUN/Creatinine Ratio 29.3 H, Glucose 111 H, Calcium 8.1 L, Magnesium 2.5, Total Bilirubin 1.10 H, AST 31, ALT 29, Alkaline Phosphatase 172 H, Total Protein 6.3 L, Albumin 2.7 L, Globulin 3.6, Albumin/Globulin Ratio 0.8 L 01/28/23 04:30: WBC 13.7 H, RBC 4.96, Hgb 13.9, Hct 42.8, MCV 86.3, MCH 28.0, MCHC 32.5, RDW Std Deviation 47.3 H, RDW Coeff of Manoj 14.9 H, Plt Count 204, MPV 11.2, Immature Gran % (Auto) 0.600, Neut % (Auto) 86.6 H, Lymph % (Auto) 5.7 L, [place] % (Auto) 6.9, Eos % (Auto) 0.1, Baso % (Auto) 0.1, Absolute Neuts (auto) 11.9 H, Absolute Lymphs (auto) 0.78 L, Nucleated RBC % 0 01/28/23 11:21: POC Glucose 151 H Micro: Microbiology 01/26/23 11:15 Urine Catheter - Watson Legionella Antigen - Final 01/26/23 11:15 Urine Catheter - Watson Streptococcus pneumoniae Antigen (M - Final 01/24/23 15:42 Nasal Secretion SARS-CoV-2 Antigen (Rapid) - Final Radiography Diagnostic Testing: Radiology Impression Chest X-Ray 01/28/23 10:20 IMPRESSION: Persistent bilateral pulmonary infiltrates worse in the right lower lobe and left upper lobe. Electronically Signed: Angel Brown MD at 10:46 EDT , Physical Exam Narrative Patient is alert and oriented, no apparent distress. Lung sounds clear, diminished breath sounds posterior. No wheezes, rhonchi or rales noted S1, S2, RRR Abdomen soft, rounded, nondistended, positive bowel sounds Pitting edema noted bilateral thighs, legs and feet Indwelling Watson catheter with clear yellow urine in bag Assessment & Plan Assessment/Plan (1) DONOVAN (acute kidney injury): (2) Hyponatremia: (3) Proteinuria: (4) Heart failure, systolic, with acute decompensation: (5) Anasarca: PLAN: Plan Impression/plan: The patient is a 62-year-old man with past history of heart failure with reduced ejection fraction (EF 20%), hypertension, and hyperlipidemia. The patient was admitted to the hospital on 01/24/2023 with exacerbation of heart failure/cardiogenic shock. Nephrology is following for DONOVAN, proteinuria, and volume management. Acute kidney injury. Suspect patient has cardiorenal DONOVAN. Last available serum creatinine prior to this admission was from April 2019. Serum creatinine was 1.00 mg/dL then. Renal function has been fluctuating since admission as expected with heart failure. Serum creatinine was as high as 1.67 mg/dL on 01/26/2023. I agree with continuing diuresis since the patient is still volume overloaded. We will monitor renal function, electrolytes, and volume status while she is being diuresed. If the patient has primarily cardiorenal DONOVAN, I would expect serum creatinine to stabilize or even improve. Hyponatremia. The patient likely has hypoosmolar hypertonic hyponatremia due to heart failure. There is no worrisome symptoms of hyponatremia such as headache, nausea, or confusion. Treatment is to continue to decongest the patient with furosemide drip. If serum sodium fails to improve with diuresis, we will recheck urine sodium and urine osmolality. Proteinuria The patient has urine protein to creatinine ratio of 1.1 g/g. He also has hypoalbuminemia with serum albumin of 2.7 g/dL. Although the patient has edema, urine protein is not high enough for diagnosis of nephrotic syndrome. I suspect patient has nephrosclerosis explaining proteinuria. Nevertheless, we will continue to monitor the patient. I will requalify urine protein again once the patient is more euvolemic. Nephrology plan discussed with Dr. Lucia and Dr. Larose.
--- NOTE | 2023-01-28 15:35 | PCM.PN.CARD ---
Subjective Subjective Patient continues to have shortness of breath. He is off pressors. Lasix drip is being started. Objective Data Vital Signs: Vital Signs Temp Pulse Resp BP Pulse Ox O2 Del Method O2 Flow Rate 96.9 F L 102 H 22 H 104/82 H 93 Nasal Cannula 3 01/28/23 14:00 01/28/23 15:00 01/28/23 15:00 01/28/23 15:00 01/28/23 15:00 01/28/23 15:00 01/28/23 15:00 FiO2 30 01/28/23 13:00 Oxygen Flow Rate (L/min) 3 Oxygen Delivery Method [3] Room Air Oxygen Delivery Method [2] Room Air Oxygen Delivery Method [1 ( Room Air Initial Baseline)] Oxygen Delivery Method Nasal Cannula Weight: 293 lb 14.019 oz Body Mass Index (BMI) 40.9 Intake & Output: Intake and Output for Last 24 Hours 01/26/23 01/27/23 01/28/23 23:59 23:59 23:59 Intake Total 1524.25 / 1533.65 1664.37 / 1664.37 505 / 505 Output Total 4050 / 4050 1475 / 1475 800 / 800 Balance -2525.75 / -2516.35 189.37 / 189.37 -295 / -295 Lab / Micro Data Result Diagrams: 01/28/23 04:30 01/28/23 04:30 Labs: Laboratory Results - last 24 hr 01/27/23 16:00: U Random Total Protein 153.3 H, Urine Creatinine 140.00, Protein/Creatinin Ratio 1095 H 01/28/23 04:30: Sodium 126 L, Potassium 4.0, Chloride 91 L, Carbon Dioxide 26.0, Anion Gap 9, BUN 43 H, Creatinine 1.47 H, Estim Creat Clear Calc 54.78, Est GFR (MDRD) Af Amer 62, Est GFR (MDRD) Non-Af 51 L, BUN/Creatinine Ratio 29.3 H, Glucose 111 H, Calcium 8.1 L, Magnesium 2.5, Total Bilirubin 1.10 H, AST 31, ALT 29, Alkaline Phosphatase 172 H, Total Protein 6.3 L, Albumin 2.7 L, Globulin 3.6, Albumin/Globulin Ratio 0.8 L 01/28/23 04:30: WBC 13.7 H, RBC 4.96, Hgb 13.9, Hct 42.8, MCV 86.3, MCH 28.0, MCHC 32.5, RDW Std Deviation 47.3 H, RDW Coeff of Manoj 14.9 H, Plt Count 204, MPV 11.2, Immature Gran % (Auto) 0.600, Neut % (Auto) 86.6 H, Lymph % (Auto) 5.7 L, [place] % (Auto) 6.9, Eos % (Auto) 0.1, Baso % (Auto) 0.1, Absolute Neuts (auto) 11.9 H, Absolute Lymphs (auto) 0.78 L, Nucleated RBC % 0 01/28/23 11:21: POC Glucose 151 H Cardiology Labs/Tests 01/28/23 04:30: Sodium 126 L, Potassium 4.0, Chloride 91 L, Carbon Dioxide 26.0, Anion Gap 9, BUN 43 H, Creatinine 1.47 H, Est GFR (MDRD) Af Amer 62, Est GFR (MDRD) Non-Af 51 L, BUN/Creatinine Ratio 29.3 H, Glucose 111 H, Calcium 8.1 L, Magnesium 2.5, Total Bilirubin 1.10 H 01/28/23 04:30: WBC 13.7 H, RBC 4.96, Hgb 13.9, Hct 42.8, MCV 86.3, MCH 28.0, MCHC 32.5, Plt Count 204, MPV 11.2, Immature Gran % (Auto) 0.600, Neut % (Auto) 86.6 H, Lymph % (Auto) 5.7 L, [place] % (Auto) 6.9, Eos % (Auto) 0.1, Baso % (Auto) 0.1, Absolute Neuts (auto) 11.9 H, Nucleated RBC % 0 Rhythm: EKG: ECHO: Stress Test: Cardiac Cath: PCI: CT Surgery: Holter monitor: EPS: PPM: CXR: Chest CT Scan: Radiography Diagnostic Testing: Radiology Impression Chest X-Ray 01/28/23 10:20 IMPRESSION: Persistent bilateral pulmonary infiltrates worse in the right lower lobe and left upper lobe. Electronically Signed: Angel Brown MD at 10:46 EDT , Physical Exam Const alert and oriented x3 HEENT normocephalic Eyes no scleral icterus Resp Resp Narrative: Bibasal crackles Cardio Cardio Narrative: Irregular rhythm Extremity Extremity Narrative: 3+ pitting edema Psych mental status grossly normal Assessment & Plan Assessment/Plan (1) Paroxysmal atrial fibrillation with RVR: PLAN: We will start the patient on Eliquis. He just got off Levophed. Due to his heart failure when his blood pressure allows he will be started on a beta-tj. (2) Heart failure, systolic, with acute decompensation: PLAN: Levophed has been discontinued. Agree with Ashley bhatti. Charges/Coding Visit Charges Inpatient E&M: 27627 Subs Hosp L2
[2023-01-28] MEDS: Atorvastatin Calcium 20 MG Tablet PO (22:06)
[2023-01-28] MEDS: APIXABAN 5 MG TABLET PO (22:06)
[2023-01-28] MEDS: MELATONIN 10 MG TABLET PO (22:09)
[2023-01-29] VITALS (28 sets, daily range): BP systolic 80–101; BP diastolic 64–85; PULSE 87–103; RESP 12–24; TEMP 36.4–36.6; O2SAT 92–98; BMI 40.7
[2023-01-29 05:19] LABS: Absolute Lymphocyte Count 0.63 X10^3/uL (0.83-4.51); Absolute Neutrophil Count 11.2 X10^3/uL (2.0-7.7); Basophil# 0.01 X10^3/uL; Basophil% 0.1 % (0-1); Eosinophil# 0.02 X10^3/uL; Eosinophils% 0.2 % (0-5); Hematocrit 42.1 % (40-54); Hemoglobin 13.6 g/dL (13.0-16.5); Lymphocyte # 0.63 X10^3/ul (0.83-4.51); Lymphocyte % 4.9 % (19-41); Mean Corp Hgb Conc 32.3 g/dL (32-36); Mean Corpuscular Hgb 28.1 pg (27.0-32.0); Mean Platelet Vol. 11.4 fl (6.2-12.0); Monocyte# 0.98 X10^3/uL; Monocyte% 7.6 % (0-10); NRBC Flagged by Analyzer 0 % (0-5); Neutrophil # 11.18 X10^3/uL (2.7-7.7); Neutrophil % 86.7 % (47-70); Platelet Count 198 K/mm3 (150-450); RBC Distribution Width CV 14.9 % (11.6-14.6); RBC Distribution Width SD 47.2 fl (35.1-43.9); Red Blood Count 4.84 M/mm3 (4.6-6.2); White Blood Count 12.9 K/mm3 (4.4-11.0)
[2023-01-29 05:47] LABS: Anion Gap 8 (5-15); BUN 38 mg/dL (7-18); Chloride 92 mmol/L (98-107); Creatinine, Serum 1.31 mg/dL (0.70-1.30); EST Glomerular Filtration Rate 59 mL/min (>60); Est Glom Filt Rate - Afr Amer 71 mL/min (>60); Estimated Creatinine Clearance 61.47 ml/min; Glucose 119 mg/dL (74-106); Potassium 3.8 mmol/L (3.5-5.1); Sodium Level 128 mmol/L (136-145)
[2023-01-29] MEDS: 0.9% Saline Lock 10 ML Syringe IV ×3 (06:37→10:40)
--- NOTE | 2023-01-29 08:05 | PCM.PN.INT ---
Assessment & Plan Assessment/Plan (1) Heart failure, diastolic, with acute decompensation: PLAN: Ejection fraction 20% with global hypokinesis and stage III diastolic dysfunction make dilated cardiomyopathy (?viral) the most likely etiology of his decompensation and anasarca.? ?contribution of atrial fib.? No evidence of Takotsubo or significant CAD on cardiac echo.? His CKD may be due to low flow.? - Continue diuresis with increased Lasix 10 mg/h continuous drip. Cardiogenic shock resolved. He has been off Levophed since 10 PM January 27, 2023 -Monitor daily weight, labs, renal function -Continue atorvastatin - Rate control for atrial fibrillation -Continue BiPAP 12/7, rate of 14, nightly and with daytime naps, until patient has significantly diuresed. - Outpatient work-up for KIM. He can go home on supplemental oxygen, if needed, until KIM is established. (2) Heart failure, systolic, with acute decompensation: PLAN: As above. (3) DONOVAN (acute kidney injury): PLAN: Baseline creatinine of 1 in the past.? Likely DONOVAN due to a combination of low flow, contrast dye and hypoxia on presentation.? Stable, on Lasix drip. Hopefully his renal function will improve as his CHF is alleviated by further diuresis. - Monitor for hyponatremia, all drip should be in saline. Lasix causes excretion of half-normal saline. - We can temporarily increase his sodium in the diet to 4 g. (4) COPD exacerbation: PLAN: - Albuterol/ipratropium 3 mL every 4 hours while awake, would like to change to ipratropium alone because of tachycardia. - Solu-Medrol IV x1 today. - Outpatient PFTs (5) Paroxysmal atrial fibrillation with RVR: PLAN: No prior history of A-fib, unknown whether he had occult atrial fibrillation prior to this admission. Remains in atrial fibrillation with heart rate 100-110. - Off heparin and on apixaban 5 mg p.o. twice daily - I will defer to cardiology when to add metoprolol; his cardiac function may improve from diuresis, may be able to add lowdose for rate control in 2 to 3 days. (6) Morbid obesity: PLAN: KIM is suspected. - BiPAP 12/7 rate of 14 with sleep and naps currently. He needs to lengthen the amount of time he uses it per night. - Melatonin for sleep; avoid benzodiazepines and narcotics which might suppress his respiratory drive. (7) Pneumonia: PLAN: Pneumonia of right middle lobe and right lower lobe, sputum has lightened and decreased in quantity. He is responding to antibiotics. - Azithromycin is complete - Continue ceftriaxone 2 g daily for total of 8 to 10 days depending on clinical response. - Repeat chest x-ray in a.m. - D-dimer was elevated, no evidence of thromboembolic disease. (8) Ascites: PLAN: As above (9) Acute respiratory failure with hypoxia: PLAN: Improving, on 3 L/min O2 and BiPAP. Due to a combination of CHF, fluid overloaded, COPD exacerbation, possible KIM, and pneumonia. Miscellaneous: ICU prophylaxis with pantoprazole, DVT prophylaxis is not needed since he is on Eliquis. PT OT involved. Abnormal LFTs are likely due to passive congestion.? Bilirubin and alk phos are elevated. Lower extremity Doppler last week had pulsatile veins, consistent with fluid overload. Sonogram on 01/24/2023 was negative This note was generated with [employer] dictation software. It may contain incorrect words, spelling, context and punctuation that were not noted in checking the note before signing. Critical care time spent with patient at bedside, review of documentation, lab results, radiology and other test results, discussion with colleagues and ancillary staff, clinical management of patient, and updating family if applicable, was 40 minutes. This time does not include any procedures, if performed. Critical care codes for today 20115. PLAN: Plan As above Subjective Subjective Patient is breathing better today after diuresis, his cough is productive of white-brown sputum. No blood. He is wheezing more today, will start nebulizer therapy. Tolerating out of bed to chair Objective Data Objective Data The patient was seen and examined at the bedside this morning. Events from the last 24 hours have been reviewed. The patient's most recent labs microbiology and imaging have all been personally reviewed. The case was discussed on ICU interdisciplinary rounds. Overnight: No events, he used BiPAP for 2 hours, and for 2 hours yesterday afternoon. He stated he realized that it would help him get better. Pertinent events include: Lasix drip increased this morning, BMI is 40.6 Vital Signs: Vital Signs Temp Pulse Resp BP Pulse Ox O2 Del Method O2 Flow Rate 97.7 F L 98 12 92/72 98 Nasal Cannula 3 01/29/23 04:00 01/29/23 07:00 01/29/23 07:00 01/29/23 07:00 01/29/23 07:00 01/29/23 07:00 01/29/23 07:00 FiO2 30 01/29/23 00:00 Oxygen Flow Rate (L/min) 3 Oxygen Delivery Method [3] Room Air Oxygen Delivery Method [2] Room Air Oxygen Delivery Method [1 ( Room Air Initial Baseline)] Oxygen Delivery Method Nasal Cannula Weight: 291 lb 0.163 oz Body Mass Index (BMI) 40.7 Intake & Output: Intake and Output for Last 24 Hours 01/27/23 01/28/23 01/29/23 23:59 23:59 23:59 Intake Total 1664.37 / 1664.37 1245 / 1245 200 / 200 Output Total 1475 / 1475 1575 / 1575 500 / 500 Balance 189.37 / 189.37 -330 / -330 -300 / -300 Patient is tolerating low-sodium fluid restricted cardiac diet well. Lab / Micro Data Result Diagrams: 01/29/23 05:05 01/29/23 05:05 Labs: Laboratory Results - last 24 hr 01/28/23 11:21: POC Glucose 151 H 01/29/23 05:05: Sodium 128 L, Potassium 3.8, Chloride 92 L, Carbon Dioxide 28.0, Anion Gap 8, BUN 38 H, Creatinine 1.31 H, Estim Creat Clear Calc 61.47, Est GFR (MDRD) Af Amer 71, Est GFR (MDRD) Non-Af 59 L, BUN/Creatinine Ratio 29.0 H, Glucose 119 H, Calcium 8.0 L 01/29/23 05:05: WBC 12.9 H, RBC 4.84, Hgb 13.6, Hct 42.1, MCV 87.0, MCH 28.1, MCHC 32.3, RDW Std Deviation 47.2 H, RDW Coeff of Manoj 14.9 H, Plt Count 198, MPV 11.4, Immature Gran % (Auto) 0.500, Neut % (Auto) 86.7 H, Lymph % (Auto) 4.9 L, [place] % (Auto) 7.6, Eos % (Auto) 0.2, Baso % (Auto) 0.1, Absolute Neuts (auto) 11.2 H, Absolute Lymphs (auto) 0.63 L, Nucleated RBC % 0 Micro: Microbiology 01/26/23 11:15 Urine Catheter - Watson Legionella Antigen - Final 01/26/23 11:15 Urine Catheter - Watson Streptococcus pneumoniae Antigen (M - Final 01/24/23 15:42 Nasal Secretion SARS-CoV-2 Antigen (Rapid) - Final Radiography Diagnostic Testing: Radiology Impression Chest X-Ray 01/28/23 10:20 IMPRESSION: Persistent bilateral pulmonary infiltrates worse in the right lower lobe and left upper lobe. Electronically Signed: Angel Brown MD at 10:46 EDT , Physical Exam Narrative Well-developed well-nourished obese no acute distress. Seems more comfortable today with regard to breathing. Sitting up in a chair. HEENT: Mucous membranes moist, otherwise unchanged, nasal cannula on at 3 L/min Chest has bilateral wheezes in all lung morgan, crackles at the lung bases up to a third. No consolidation Heart tachycardic atrial fibrillation on monitor, normal S1-S2 with no murmurs. Abdomen is obese nontender nondistended. Watson catheter is draining light yellow clear urine. Extremities have no clubbing cyanosis. His lower extremities are wrapped in Malik bandages, still markedly edematous. Neurologic is nonfocal, strength is good. Alert and oriented x3. Charges/Coding Procedures Hospitalists Procedures: 80821 Critial Care 1st Hr
[2023-01-29] MEDS: Ipratropium 0.5 MG/2.5 ML SOLUTION INHALATION ×2 (10:36→19:35)
[2023-01-29] MEDS: APIXABAN 5 MG TABLET PO ×2 (10:39→20:18)
[2023-01-29] MEDS: MethylPREDNISolone 125 MG/2 ML Vial IV (10:39)
[2023-01-29] MEDS: Pantoprazole Sodium 40 MG Tablet PO (10:39)
--- NOTE | 2023-01-29 10:55 | PCM.PN.CARD ---
Subjective Subjective Shortness of breath is slightly better today than yesterday Objective Data Vital Signs: Vital Signs Temp Pulse Resp BP Pulse Ox O2 Del Method O2 Flow Rate 97.7 F L 95 18 92/72 97 Nasal Cannula 3 01/29/23 04:00 01/29/23 10:37 01/29/23 10:37 01/29/23 07:00 01/29/23 10:37 01/29/23 10:37 01/29/23 10:37 FiO2 30 01/29/23 00:00 Oxygen Flow Rate (L/min) 3 Oxygen Delivery Method [3] Room Air Oxygen Delivery Method [2] Room Air Oxygen Delivery Method [1 ( Room Air Initial Baseline)] Oxygen Delivery Method Nasal Cannula Weight: 291 lb 0.163 oz Body Mass Index (BMI) 40.7 Intake & Output: Intake and Output for Last 24 Hours 01/27/23 01/28/23 01/29/23 23:59 23:59 23:59 Intake Total 1664.37 / 1664.37 1245 / 1245 210.11 / 210.11 Output Total 1475 / 1475 1575 / 1575 500 / 500 Balance 189.37 / 189.37 -330 / -330 -289.89 / -289.89 Lab / Micro Data Result Diagrams: 01/29/23 05:05 01/29/23 05:05 Labs: Laboratory Results - last 24 hr 01/28/23 11:21: POC Glucose 151 H 01/29/23 05:05: Sodium 128 L, Potassium 3.8, Chloride 92 L, Carbon Dioxide 28.0, Anion Gap 8, BUN 38 H, Creatinine 1.31 H, Estim Creat Clear Calc 61.47, Est GFR (MDRD) Af Amer 71, Est GFR (MDRD) Non-Af 59 L, BUN/Creatinine Ratio 29.0 H, Glucose 119 H, Calcium 8.0 L 01/29/23 05:05: WBC 12.9 H, RBC 4.84, Hgb 13.6, Hct 42.1, MCV 87.0, MCH 28.1, MCHC 32.3, RDW Std Deviation 47.2 H, RDW Coeff of Manoj 14.9 H, Plt Count 198, MPV 11.4, Immature Gran % (Auto) 0.500, Neut % (Auto) 86.7 H, Lymph % (Auto) 4.9 L, [place] % (Auto) 7.6, Eos % (Auto) 0.2, Baso % (Auto) 0.1, Absolute Neuts (auto) 11.2 H, Absolute Lymphs (auto) 0.63 L, Nucleated RBC % 0 Cardiology Labs/Tests 01/29/23 05:05: Sodium 128 L, Potassium 3.8, Chloride 92 L, Carbon Dioxide 28.0, Anion Gap 8, BUN 38 H, Creatinine 1.31 H, Est GFR (MDRD) Af Amer 71, Est GFR (MDRD) Non-Af 59 L, BUN/Creatinine Ratio 29.0 H, Glucose 119 H, Calcium 8.0 L 01/29/23 05:05: WBC 12.9 H, RBC 4.84, Hgb 13.6, Hct 42.1, MCV 87.0, MCH 28.1, MCHC 32.3, Plt Count 198, MPV 11.4, Immature Gran % (Auto) 0.500, Neut % (Auto) 86.7 H, Lymph % (Auto) 4.9 L, [place] % (Auto) 7.6, Eos % (Auto) 0.2, Baso % (Auto) 0.1, Absolute Neuts (auto) 11.2 H, Nucleated RBC % 0 Rhythm: EKG: ECHO: Stress Test: Cardiac Cath: PCI: CT Surgery: Holter monitor: EPS: PPM: CXR: Chest CT Scan: Radiography Diagnostic Testing: Radiology Impression Chest X-Ray 01/28/23 10:20 IMPRESSION: Persistent bilateral pulmonary infiltrates worse in the right lower lobe and left upper lobe. Electronically Signed: Angel Brown MD at 10:46 EDT , Physical Exam Const alert and oriented x3 HEENT normocephalic Eyes no scleral icterus Resp Resp Narrative: Bibasal crackles Cardio Cardio Narrative: Irregular rhythm Extremity Extremity Narrative: 3+ pitting edema Psych mental status grossly normal Assessment & Plan Assessment/Plan (1) Paroxysmal atrial fibrillation with RVR: PLAN: Continue Eliquis. Will start beta-tj hopefully in a day or 2 for his heart failure. (2) Heart failure, systolic, with acute decompensation: PLAN: Agree with increasing Lasix dose. Charges/Coding Visit Charges Inpatient E&M: 65583 Subs Hosp L2
--- NOTE | 2023-01-29 12:55 | PN.HOSP_ITS ---
Reason for Visit Reason for Visit: Shortness of breath/edema Subjective Subjective Patient did not sleep well again last night. No specific complaints. No epis odes in the last 24 hours and has not required pressors. Tolerating Lasix drip. Still markedly volume overloaded Objective Data Objective Data Vital Signs: Vital Signs Temp Pulse Resp BP Pulse Ox O2 Del Method O2 Flow Rate 97.8 F 99 15 97/72 96 Nasal Cannula 2 01/29/23 08:00 01/29/23 11:00 01/29/23 11:00 01/29/23 11:00 01/29/23 11:37 01/29/23 11:00 01/29/23 11:59 FiO2 30 01/29/23 00:00 Oxygen Flow Rate (L/min) 2 Oxygen Delivery Method [3] Room Air Oxygen Delivery Method [2] Room Air Oxygen Delivery Method [1 ( Room Air Initial Baseline)] Oxygen Delivery Method Nasal Cannula Weight: 132 kg Body Mass Index (BMI) 40.7 Intake & Output: Intake and Output for Last 24 Hours 01/27/23 01/28/23 01/29/23 23:59 23:59 23:59 Intake Total 1664.37 / 1664.37 1245 / 1245 210.11 / 210.11 Output Total 1475 / 1475 1575 / 1575 500 / 500 Balance 189.37 / 189.37 -330 / -330 -289.89 / -289.89 Lab / Micro Data Result Diagrams: 01/29/23 05:05 01/29/23 05:05 Labs: Laboratory Results - last 24 hr 01/29/23 05:05: Sodium 128 L, Potassium 3.8, Chloride 92 L, Carbon Dioxide 28.0, Anion Gap 8, BUN 38 H, Creatinine 1.31 H, Estim Creat Clear Calc 61.47, Est GFR (MDRD) Af Amer 71, Est GFR (MDRD) Non-Af 59 L, BUN/Creatinine Ratio 29.0 H, Glucose 119 H, Calcium 8.0 L 01/29/23 05:05: WBC 12.9 H, RBC 4.84, Hgb 13.6, Hct 42.1, MCV 87.0, MCH 28.1, MCHC 32.3, RDW Std Deviation 47.2 H, RDW Coeff of Manoj 14.9 H, Plt Count 198, MPV 11.4, Immature Gran % (Auto) 0.500, Neut % (Auto) 86.7 H, Lymph % (Auto) 4.9 L, [place] % (Auto) 7.6, Eos % (Auto) 0.2, Baso % (Auto) 0.1, Absolute Neuts (auto) 11.2 H, Absolute Lymphs (auto) 0.63 L, Nucleated RBC % 0 Micro: Microbiology 01/26/23 11:15 Urine Catheter - Watson Legionella Antigen - Final 01/26/23 11:15 Urine Catheter - Watson Streptococcus pneumoniae Antigen (M - Final 01/24/23 15:42 Nasal Secretion SARS-CoV-2 Antigen (Rapid) - Final Radiography Diagnostic Testing: Radiology Impression Chest X-Ray 01/28/23 10:20 IMPRESSION: Persistent bilateral pulmonary infiltrates worse in the right lower lobe and left upper lobe. Electronically Signed: Angel Brown MD at 10:46 EDT , Physical Exam Const alert, oriented x3 and well nourished; Negative for average body habitus or healthy appearing Constitutional Narrative: Morbidly obese, upper middle-aged, white male, appears older than stated age, sitting up in a chair at the bedside nontoxic, appropriately interactive, watching television, appears chronically ill HEENT head/scalp atraumatic and moist oral mucous membranes Head and Scalp: normocephalic Resp normal respiratory effort, no retractions and no use of accessory muscles Resp Narrative: Diminished with few scattered wheezes bilaterally Auscultation: wheezes; Negative for rales or rhonchi Cardio regular rate, S1 normal heart sound, S2 normal heart sound, no murmurs, no rub and no clicks; Negative for no gallops Cardio Narrative: rhythm is irregularly irregular GI normal to inspection, nondistended, normoactive bowel sounds and soft to palpation GI Narrative: Anasarca remains up to chest and anterior abdominal wall Extremity Extremity Narrative: 3+ bilateral lower extremity pitting edema that extends up towards his hips and into his abdomen, no cyanosis or clubbing, Malik bandages in place Skin no rashes or lesions noted, no wounds, skin turgor normal, no jaundice, no petechiae and no mottling Neuro oriented x3, moves all extremities and no focal motor deficits Speech: speech normal Psych affect normal Psych Narrative: Affect is flat and mood seems somewhat depressed Assessment & Plan Assessment/Plan (1) Heart failure, systolic, with acute decompensation: (2) Ascites: (3) Pleural effusion: (4) Orthopnea: (5) Elevated d-dimer: (6) Hyponatremia: (7) Elevated serum creatinine: (8) Hyperbilirubinemia: (9) Heart failure, diastolic, with acute decompensation: (10) Anasarca: (11) Paroxysmal atrial fibrillation with RVR: (12) Acute respiratory failure with hypoxia: (13) Wide-complex tachycardia: (14) Cardiogenic shock: PLAN: Plan Cardiogenic shock -Remains stable -Respiratory status has improved -Pressors have been off for over 24 hours -Lasix drip to continue and increase to 10 mg /h -Cardiac catheterization was unremarkable for any obstructive coronary artery disease -Exact etiology for depressed EF is unknown at this time -Cardiology following-appreciate input Acute decompensated systolic/diastolic heart failure -Newly diagnosed -Echocardiogram has resulted and shows an EF of 20%, global dysfunction with stage III diastolic dysfunction, mild left atrial enlargement, severe right atri al enlargement, mild to moderate mitral valve insufficiency, mild to moderate tricuspid valve insufficiency, pulmonary systolic pressure is 20 mmHg, severe global hypokinesis of the LV -Continue Lasix drip -Patient still markedly volume overloaded -Continue strict I's and O's -Check daily weights -Continue fluid restriction -Sodium restricted diet -Cardiology is following-appreciate input Large right pleural effusion-transudative -Status postthoracentesis on 01/25/2023 with 2100 cc removed -Transudative per lights criteria -We will need to monitor for recurrence -Continue diuresis Acute hypoxic respiratory failure with suspected pneumonia -After the thoracentesis the patient developed significant coughing and hypoxia -Chest x-ray shows new infiltrate in right base which was obscured by fluid previously -We will continue to CAP coverage with ceftriaxone to complete a course of 7 days and day 4 of 7 -Methylprednisolone 125 mg x 1 dose was given by pulmonary medicine this morning for his wheezing -Aggressive pulmonary toilet -Mucinex -Strep pneumo and Legionella antigens are negative -No sputum able to be obtained -White count is downtrending but may rise tomorrow with steroid use A-fib with RVR -EKG on presentation shows A-fib with RVR -Continue Eliquis 5 mg p.o. twice daily -Plan is to start low-dose beta-tj once blood pressure will tolerate -Cardiology is following Wide-complex tachycardia -Suspect VT however could be A-fib with aberrancy -Patient has been asymptomatic with these events -With EF would be candidate for defibrillator -Cardiology is following Elevated serum creatinine -Baseline is unknown -Kidney function remains relatively stable despite diuresis -I suspect he is off the Starling curve therefore has cardiorenal syndrome -Repeat BMP in a.m. -Avoid nephrotoxins as able -Nephrology is following-appreciate input Hypervolemic hyponatremia -secondary to CHF -128 today -Improving with diuresis -Repeat BMP in a.m. Anasarca -Secondary above -Monitor clinically -Diurese as able Hyperbilirubinemia -Down to 1.1 from 1.8 at its peak -Does not appear to be chronically elevated on review of previous lab Elevated D-dimer -CTA of the chest was negative for PE -Lower extremity Dopplers are negative for DVT Ascites -Minimal on ultrasound -Review of the liver was not performed I will need to discuss with radiology however I do anticipate that his ascites is related to his heart failure at this point Hyperlipidemia -LDL is at goal -Continue current statin Hypertension -Antihypertensives on hold because of hypotension GERD -Continue Protonix Morbid obesity -Some of his weight is volume related and should improve with diuresis however he meets criteria for obesity at least at baseline -Current BMI is 40.6 -Daily weights ordered with diuresis -Recommend weight loss -Complicates treatment, prognosis, outcomes History of alcohol abuse -Remote History of tobacco abuse -No current use -Recommend ongoing cessation DVT prophylaxis -Eliquis CODE STATUS -Full code Charges/Coding Visit Charges Inpatient E&M: 08584 Subs Hosp L2
[2023-01-29] MEDS: Furosemide 500 MG in Empty Viaflex 50 mL 1 EACH CONT INF (16:01)
[2023-01-29] MEDS: Atorvastatin Calcium 20 MG Tablet PO (20:18)
[2023-01-30] VITALS (23 sets, daily range): BP systolic 92–116; BP diastolic 64–94; PULSE 93–114; RESP 12–22; TEMP 35.8–36.9; O2SAT 90–99; BMI 40.0
[2023-01-30] MEDS: Ipratropium 0.5 MG/2.5 ML SOLUTION INHALATION ×4 (01:05→20:05)
[2023-01-30 03:04] LABS: Absolute Lymphocyte Count 0.32 X10^3/uL (0.83-4.51); Absolute Neutrophil Count 9.2 X10^3/uL (2.0-7.7); Basophil# 0.01 X10^3/uL; Basophil% 0.1 % (0-1); Hematocrit 43.4 % (40-54); Hemoglobin 13.9 g/dL (13.0-16.5); Lymphocyte # 0.32 X10^3/ul (0.83-4.51); Lymphocyte % 3.2 % (19-41); Mean Corpuscular Volume 87.5 fL (80-94); Mean Platelet Vol. 11.3 fl (6.2-12.0); Monocyte# 0.46 X10^3/uL; Monocyte% 4.6 % (0-10); NRBC Flagged by Analyzer 0 % (0-5); Neutrophil % 91.5 % (47-70); POSITIVE DIFFERENTIAL YES; Platelet Count 188 K/mm3 (150-450); RBC Distribution Width CV 14.8 % (11.6-14.6); RBC Distribution Width SD 47.2 fl (35.1-43.9); Red Blood Count 4.96 M/mm3 (4.6-6.2); White Blood Count 10.1 K/mm3 (4.4-11.0)
[2023-01-30 03:05] LABS: Differential Indicated SCAN CRITERIA MET
[2023-01-30 03:20] LABS: Anion Gap 8 (5-15); BUN 43 mg/dL (7-18); BUN/Creat Ratio 32.1 RATIO (10-20); Calcium,Total 8.4 mg/dL (8.5-10.1); Chloride 93 mmol/L (98-107); Creatinine, Serum 1.34 mg/dL (0.70-1.30); EST Glomerular Filtration Rate 57 mL/min (>60); Est Glom Filt Rate - Afr Amer 69 mL/min (>60); Glucose 142 mg/dL (74-106); Potassium 4.2 mmol/L (3.5-5.1); Sodium Level 130 mmol/L (136-145)
[2023-01-30 03:46] LABS: Differential Comment SCANNED
--- NOTE | 2023-01-30 07:00 | RAD_ITS ---
STUDY: X-RAY CHEST REASON FOR EXAM: Male, 62 years old. Pneumonia followu[p TECHNIQUE: Single AP portable view of the chest. COMPARISON: January 28, 2023 chest x-ray FINDINGS: There is a right-sided PICC line and the tip is in the superior vena cava. There is persistent blunting of the right costophrenic angle right lower lobe opacity. There is persistent but lesser pattern of diffuse groundglass opacity. There is mild cardiac enlargement. Normal mediastinum and promise. Normal visualized pulmonary arteries. There is atherosclerotic calcification of the aortic arch with tortuosity. There are diffuse degenerative changes of the visualized thoracic spine. Normal visualized ribs, clavicles, and shoulders. There is no demonstrated abnormality of the visualized soft tissue structures of the upper abdomen. RAD/Chest 1 View (Portable) IMPRESSION: Slight improvement in the groundglass opacities in the lungs, persistent right effusion and/or consolidation right lung base. Electronically Signed: Lisa Wen MD at 7:09 EDT ,
--- NOTE | 2023-01-30 08:46 | PN.CC_ITS ---
Assessment & Plan Assessment/Plan (1) Heart failure, diastolic, with acute decompensation: (2) Pneumonia: (3) COPD exacerbation: (4) Paroxysmal atrial fibrillation with RVR: (5) DONOVAN (acute kidney injury): PLAN: Plan 1. Idiopathic severe nonischemic cardiomyopathy, with ejection 20%, no significant coronary artery disease. - Respiratory status improving after diuresis of another kilogram overnight. Increase Lasix drip to 15 mg/h, check labs in the afternoon. - Patient is transferring to the regular medical floor. - Decrease Lasix drip to 5 mg an hour in the morning and reassess diuresis rate - Recommend that cardiology and primary care reassess Lasix drip dosing depending on speed of diuresis. - I recommended an additional 15 pound diuresis over the next 3 days, if renal function and BP tolerates. 2. Atrial fibrillation, persistent since admission, but this is a new complaint. - Rate is well controlled - Further consideration regarding attempted cardioversion per cardiology. 3. Possible obstructive sleep apnea - Outpatient work-up, he does not need BiPAP any longer. Continue to titrate supplemental oxygen to saturation >/=92%. 4. COPD: Wheezing resolved after 1 dose of Solu-Medrol IV plus frequent nebulizer therapy. - No further indication for steroids, continue DuoNeb 4 times daily while awake. - Outpatient pulmonary function test - Smoking cessation 5. Right lower lobe and right middle lobe pneumonia, improving clinically and radiographically, with resolution of purulent sputum, and clearing infiltrate on chest x-ray today. - Continue 8-day course of antibiotics. - Routine bronchopulmonary hygiene [facility] will sign off when the patient leaves the unit later today, primary problem is cardiac. Please arrange outpatient pulmonary clinic follow-up with pulmonary function testing before the visit. Thuan Lucia MD [facility] Subjective Subjective He is out of bed to chair. He wore his BiPAP for 1 to 2 hours last night, diuresed a kilogram, less short of breath today. His cough is improved he is producing small amounts of white sputum, decreased in quantity and purulence from 2 days ago. No fevers chills sweats nausea vomiting. Leg edema is improved he can see his kneecaps no chest pain. Objective Data Objective Data The patient was seen and examined at the bedside this morning. Events from the last 24 hours have been reviewed. The patient's most recent labs microbiology and imaging have all been personally reviewed. The case was discussed on ICU interdisciplinary rounds. Overnight: Stable, improving. 91% saturation on room air after walking. Pertinent events include: Remains on Lasix drip, increased from 10 to 15 mg/h today. My estimate is 15 extra pounds of fluid in the legs and lungs. Renal function and blood pressure is tolerating aggressive diuresis well. Vital Signs: Vital Signs Temp Pulse Resp BP Pulse Ox O2 Del Method O2 Flow Rate 98.2 F 96 20 H 116/88 H 95 Room Air 1 01/30/23 02:00 01/30/23 07:00 01/30/23 07:00 01/30/23 07:00 01/30/23 07:00 01/30/23 07:00 01/29/23 15:00 aggressive diuresis well. FiO2 30 01/30/23 01:12 Oxygen Flow Rate (L/min) 1 Oxygen Delivery Method [3] Room Air Oxygen Delivery Method [2] Room Air Oxygen Delivery Method [1 ( Room Air Initial Baseline)] Oxygen Delivery Method Room Air Weight: 285 lb 15.033 oz Body Mass Index (BMI) 40.0 Intake & Output: Intake and Output for Last 24 Hours 01/28/23 01/29/23 01/30/23 23:59 23:59 23:59 Intake Total 1245 / 1245 1348.95 / 1348.95 240 / 240 Output Total 1575 / 1575 2100 / 2100 350 / 350 Balance -330 / -330 -751.05 / -751.05 -110 / -110 Lab / Micro Data Result Diagrams: 01/30/23 03:00 01/30/23 03:00 Labs: Laboratory Results - last 24 hr 01/30/23 03:00: Sodium 130 L, Potassium 4.2, Chloride 93 L, Carbon Dioxide 29.0, Anion Gap 8, BUN 43 H, Creatinine 1.34 H, Estim Creat Clear Calc 60.10, Est GFR (MDRD) Af Amer 69, Est GFR (MDRD) Non-Af 57 L, BUN/Creatinine Ratio 32.1 H, Glucose 142 H, Calcium 8.4 L 01/30/23 03:00: WBC 10.1, RBC 4.96, Hgb 13.9, Hct 43.4, MCV 87.5, MCH 28.0, MCHC 32.0, RDW Std Deviation 47.2 H, RDW Coeff of Manoj 14.8 H, Plt Count 188, MPV 11.3, Immature Gran % (Auto) 0.600, Neut % (Auto) 91.5 H, Lymph % (Auto) 3.2 L, [place] % (Auto) 4.6, Eos % (Auto) 0.0, Baso % (Auto) 0.1, Absolute Neuts (auto) 9.2 H, Absolute Lymphs (auto) 0.32 L, Nucleated RBC % 0, Differential Comment SCANNED Micro: Microbiology 01/26/23 11:15 Urine Catheter - Watson Legionella Antigen - Final 01/26/23 11:15 Urine Catheter - Watson Streptococcus pneumoniae Antigen (M - Final 01/24/23 15:42 Nasal Secretion SARS-CoV-2 Antigen (Rapid) - Final Radiography Diagnostic Testing: Radiology Impression Chest X-Ray 01/28/23 04:55 was personally reviewed film and report. I also reviewed his chest x-rays on the laptop computer at bedside with the patient. IMPRESSION: Findings are highly suspicious for multifocal pneumonia. Right lower lobe consolidation and effusion. Electronically Signed: Lisa Wen MD at 4:33 EDT , Chest X-Ray 01/30/23 07:00 IMPRESSION: Slight improvement in the groundglass opacities in the lungs, persistent right effusion and/or consolidation right lung base. Electronically Signed: Lisa Wen MD at 7:09 EDT , Physical Exam Narrative Well-developed well-nourished obese no acute distress. Weight is 129.7 kg, 285 pounds, BMI 39.9. HEENT unremarkable, mucous membranes moist Lungs have crackles usp up both lung morgan, right lower lobe consolidation with decreased and tubular breath sounds. No wheezes or rhonchi. Heart irregular irregular S1-S2 with no murmurs rubs or gallops Extremities have 4+ pitting edema pretibial, 1+ pitting edema kneecaps Neuro is grossly nonfocal Watson catheter is in place draining clear darkish urine (bilirubin is elevated) Charges/Coding Visit Charges Inpatient E&M: 56786 Subs Hosp L3
[2023-01-30] MEDS: Pantoprazole Sodium 40 MG Tablet PO (09:07)
[2023-01-30] MEDS: APIXABAN 5 MG TABLET PO ×2 (09:08→23:03)
--- NOTE | 2023-01-30 10:52 | PN.HOSP_ITS ---
Reason for Visit Reason for Visit: Shortness of breath/edema Subjective Subjective No issues overnight. Has remained off pressors for 48 hours now. Tolerating d iuresis well. States he feels the swelling may be starting to get a little bit better. Is now on room air. I discussed with him depression and antidepressant use. He stated he was willing to try something so we will start some low-dose Lexapro at 10 mg. Objective Data Objective Data Vital Signs: Vital Signs Temp Pulse Resp BP Pulse Ox O2 Del Method O2 Flow Rate 97.0 F L 114 H 18 104/88 H 90 Room Air 1 01/30/23 08:00 01/30/23 08:00 01/30/23 08:00 01/30/23 08:00 01/30/23 08:00 01/30/23 08:30 01/29/23 15:00 FiO2 30 01/30/23 01:12 Oxygen Flow Rate (L/min) 1 Oxygen Delivery Method [3] Room Air Oxygen Delivery Method [2] Room Air Oxygen Delivery Method [1 ( Room Air Initial Baseline)] Oxygen Delivery Method Room Air Weight: 129.7 kg Body Mass Index (BMI) 40.0 Intake & Output: Intake and Output for Last 24 Hours 01/28/23 01/29/23 01/30/23 23:59 23:59 23:59 Intake Total 1245 / 1245 1348.95 / 1348.95 305.93 / 305.93 Output Total 1575 / 1575 2100 / 2100 600 / 600 Balance -330 / -330 -751.05 / -751.05 -294.07 / -294.07 Lab / Micro Data Result Diagrams: 01/30/23 03:00 01/30/23 03:00 Labs: Laboratory Results - last 24 hr 01/30/23 03:00: Sodium 130 L, Potassium 4.2, Chloride 93 L, Carbon Dioxide 29.0, Anion Gap 8, BUN 43 H, Creatinine 1.34 H, Estim Creat Clear Calc 60.10, Est GFR (MDRD) Af Amer 69, Est GFR (MDRD) Non-Af 57 L, BUN/Creatinine Ratio 32.1 H, Gl ucose 142 H, Calcium 8.4 L 01/30/23 03:00: WBC 10.1, RBC 4.96, Hgb 13.9, Hct 43.4, MCV 87.5, MCH 28.0, MCHC 32.0, RDW Std Deviation 47.2 H, RDW Coeff of Manoj 14.8 H, Plt Count 188, MPV 11.3, Immature Gran % (Auto) 0.600, Neut % (Auto) 91.5 H, Lymph % (Auto) 3.2 L, [place] % (Auto) 4.6, Eos % (Auto) 0.0, Baso % (Auto) 0.1, Absolute Neuts (auto) 9.2 H, Absolute Lymphs (auto) 0.32 L, Nucleated RBC % 0, Differential Comment SCANNED Micro: Microbiology 01/26/23 11:15 Urine Catheter - Watson Legionella Antigen - Final 01/26/23 11:15 Urine Catheter - Watson Streptococcus pneumoniae Antigen (M - Final 01/24/23 15:42 Nasal Secretion SARS-CoV-2 Antigen (Rapid) - Final Radiography Diagnostic Testing: Radiology Impression Chest X-Ray 01/28/23 04:55 IMPRESSION: Findings are highly suspicious for multifocal pneumonia. Right lower lobe consolidation and effusion. Electronically Signed: Lisa Wen MD at 4:33 EDT , Chest X-Ray 01/30/23 07:00 IMPRESSION: Slight improvement in the groundglass opacities in the lungs, persistent right effusion and/or consolidation right lung base. Electronically Signed: Lisa Wen MD at 7:09 EDT , Physical Exam Const alert, oriented x3 and well nourished; Negative for average body habitus or healthy appearing Constitutional Narrative: Morbidly obese, upper middle-aged, white male, appears older than stated age, sitting up in bed, nontoxic, appropriately interactive, watching television, appears chronically ill HEENT head/scalp atraumatic and moist oral mucous membranes HEENT Narrative: Mallampati 3, no thrush Head and Scalp: normocephalic Resp normal respiratory effort, no retractions, no use of accessory muscles and clear to auscultation bilaterally Auscultation: Negative for rales, rhonchi or wheezes Cardio regular rate, S1 normal heart sound, S2 normal heart sound, no murmurs, no rub and no clicks; Negative for no gallops Cardio Narrative: rhythm is irregularly irregular GI normal to inspection, nondistended, normoactive bowel sounds and soft to palpation GI Narrative: Anasarca remains up to chest and anterior abdominal wall Extremity Extremity Narrative: 2-3+ bilateral lower extremity pitting edema that extends up towards his hips and into his abdomen, no cyanosis or clubbing, Malik bandages in place Neuro oriented x3, moves all extremities and no focal motor deficits Speech: speech normal Psych Psych Narrative: Affect is flat and mood seems somewhat depressed Assessment & Plan Assessment/Plan (1) Heart failure, systolic, with acute decompensation: (2) Ascites: (3) Pleural effusion: (4) Orthopnea: (5) Elevated d-dimer: (6) Hyponatremia: (7) Elevated serum creatinine: (8) Hyperbilirubinemia: (9) Heart failure, diastolic, with acute decompensation: (10) Anasarca: (11) Paroxysmal atrial fibrillation with RVR: (12) Acute respiratory failure with hypoxia: (13) Wide-complex tachycardia: (14) Cardiogenic shock: PLAN: Plan Cardiogenic shock -Resolved -Remains stable -Now on room air -Pressors have been off for over 48 hours -Continue Lasix drip at 10 mg/h -Cardiac catheterization was unremarkable for any obstructive coronary artery disease -Exact etiology for depressed EF is unknown at this time -Cardiology following-appreciate input Acute decompensated systolic/diastolic heart failure -Newly diagnosed -Echocardiogram has resulted and shows an EF of 20%, global dysfunction with stage III diastolic dysfunction, mild left atrial enlargement, severe right atrial enlargement, mild to moderate mitral valve insufficiency, mild to moderate tricuspid valve insufficiency, pulmonary systolic pressure is 20 mmHg, severe global hypokinesis of the LV -Now on room air -Down 6.56 L for hospital stay -Down about 8 kg for hospital stay -Continue Lasix drip -Add low-dose metoprolol 12.5 mg p.o. twice daily -Patient still markedly volume overloaded -Continue strict I's and O's -Check daily weights -Continue fluid restriction -Sodium restricted diet -Cardiology is following-appreciate input Large right pleural effusion-transudative -Status post-thoracentesis on 01/25/2023 with 2100 cc removed -Transudative per lights criteria -Resolved -Continue diuresis Acute hypoxic respiratory failure with suspected pneumonia -After the thoracentesis the patient developed significant coughing and hypoxia -Chest x-ray shows new infiltrate in right base which was obscured by fluid previously -We will continue to CAP coverage with ceftriaxone to complete a course of 7 days and day 5 of 7 -Aggressive pulmonary toilet -Mucinex -Strep pneumo and Legionella antigens are negative -No sputum able to be obtained -White count has resolved A-fib with RVR -EKG on presentation shows A-fib with RVR -Continue Eliquis 5 mg p.o. twice daily -Start metoprolol 12.5 twice daily -Plan is to start low-dose beta-tj once blood pressure will tolerate -Cardiology is following Wide-complex tachycardia -Suspect VT however could be A-fib with aberrancy -Patient has been asymptomatic with these events -With EF would be candidate for defibrillator -Cardiology is following Elevated serum creatinine -Baseline is unknown -Kidney function remains relatively stable despite diuresis -I suspect he is off the [place] curve therefore has cardiorenal syndrome -Continue daily BMP while on Lasix drip -Avoid nephrotoxins as able -Nephrology is following-appreciate input Hypervolemic hyponatremia -secondary to CHF - up to 130 today -Improving with diuresis -Repeat BMP in a.m. Anasarca -Secondary above -Monitor clinically -Diurese as able Elevated D-dimer -CTA of the chest was negative for PE -Lower extremity Dopplers are negative for DVT Ascites -Minimal on ultrasound -Review of the liver was not performed I will need to discuss with radiology however I do anticipate that his ascites is related to his heart failure at this point Hyperlipidemia -LDL is at goal -Continue current statin Hypertension -Antihypertensives on hold because of hypotension GERD -Continue Protonix Obesity -Weight is improving with diuresis -Current BMI is 39.9 -Daily weights ordered with diuresis -Recommend weight loss -Complicates treatment, prognosis, outcomes History of alcohol abuse -Remote History of tobacco abuse -No current use -Recommend ongoing cessation DVT prophylaxis -Eliquis CODE STATUS -Full code Disposition: -Patient is now on room air and off pressors for 48 hours. Will transfer out of the ICU Charges/Coding Visit Charges Inpatient E&M: 81211 Subs Hosp L2
[2023-01-30] MEDS: Metoprolol Tartrate 25 MG Tablet 12.5 MG PO ×2 (12:16→20:49)
--- NOTE | 2023-01-30 12:44 | PN.CARD_ITS ---
Subjective Subjective Shortness of breath continuing to improve. Objective Data Vital Signs: Vital Signs Temp Pulse Resp BP Pulse Ox O2 Del Method O2 Flow Rate 97.5 F L 108 H 17 104/73 95 Room Air 1 01/30/23 12:00 01/30/23 12:16 01/30/23 12:00 01/30/23 12:00 01/30/23 12:00 01/30/23 12:00 01/29/23 15:00 FiO2 30 01/30/23 01:12 Oxygen Flow Rate (L/min) 1 Oxygen Delivery Method [3] Room Air Oxygen Delivery Method [2] Room Air Oxygen Delivery Method [1 ( Room Air Initial Baseline)] Oxygen Delivery Method Room Air Weight: 285 lb 15.033 oz Body Mass Index (BMI) 40.0 Intake & Output: Intake and Output for Last 24 Hours 01/28/23 01/29/23 01/30/23 23:59 23:59 23:59 Intake Total 1245 / 1245 1348.95 / 1348.95 310.73 / 310.73 Output Total 1575 / 1575 2100 / 2100 1000 / 1000 Balance -330 / -330 -751.05 / -751.05 -689.27 / -689.27 Lab / Micro Data Result Diagrams: 01/30/23 03:00 01/30/23 03:00 Labs: Laboratory Results - last 24 hr 01/30/23 03:00: Sodium 130 L, Potassium 4.2, Chloride 93 L, Carbon Dioxide 29.0, Anion Gap 8, BUN 43 H, Creatinine 1.34 H, Estim Creat Clear Calc 60.10, Est GFR (MDRD) Af Amer 69, Est GFR (MDRD) Non-Af 57 L, BUN/Creatinine Ratio 32.1 H, Glucose 142 H, Calcium 8.4 L 01/30/23 03:00: WBC 10.1, RBC 4.96, Hgb 13.9, Hct 43.4, MCV 87.5, MCH 28.0, MCHC 32.0, RDW Std Deviation 47.2 H, RDW Coeff of Manoj 14.8 H, Plt Count 188, MPV 11.3, Immature Gran % (Auto) 0.600, Neut % (Auto) 91.5 H, Lymph % (Auto) 3.2 L, [place] % (Auto) 4.6, Eos % (Auto) 0.0, Baso % (Auto) 0.1, Absolute Neuts (auto) 9.2 H, Absolute Lymphs (auto) 0.32 L, Nucleated RBC % 0, Differential Comment SCANNED Cardiology Labs/Tests 01/30/23 03:00: Sodium 130 L, Potassium 4.2, Chloride 93 L, Carbon Dioxide 29.0, Anion Gap 8, BUN 43 H, Creatinine 1.34 H, Est GFR (MDRD) Af Amer 69, Est GFR (MDRD) Non-Af 57 L, BUN/Creatinine Ratio 32.1 H, Glucose 142 H, Calcium 8.4 L 01/30/23 03:00: WBC 10.1, RBC 4.96, Hgb 13.9, Hct 43.4, MCV 87.5, MCH 28.0, MCHC 32.0, Plt Count 188, MPV 11.3, Immature Gran % (Auto) 0.600, Neut % (Auto) 91.5 H, Lymph % (Auto) 3.2 L, [place] % (Auto) 4.6, Eos % (Auto) 0.0, Baso % (Auto) 0.1, Absolute Neuts (auto) 9.2 H, Nucleated RBC % 0 Rhythm: EKG: ECHO: Stress Test: Cardiac Cath: PCI: CT Surgery: Holter monitor: EPS: PPM: CXR: Chest CT Scan: Radiography Diagnostic Testing: Radiology Impression Chest X-Ray 01/28/23 04:55 IMPRESSION: Findings are highly suspicious for multifocal pneumonia. Right lower lobe consolidation and effusion. Electronically Signed: Lisa Wen MD at 4:33 EDT , Chest X-Ray 01/30/23 07:00 IMPRESSION: Slight improvement in the groundglass opacities in the lungs, persistent right effusion and/or consolidation right lung base. Electronically Signed: Lisa Wen MD at 7:09 EDT , Physical Exam Const alert and oriented x3 HEENT normocephalic Eyes no scleral icterus Resp Resp Narrative: Bibasal crackles. Much better air entry compared to yesterday Cardio Cardio Narrative: Irregular rhythm Extremity Extremity Narrative: 3+ pitting edema Psych mental status grossly normal Assessment & Plan Assessment/Plan (1) Paroxysmal atrial fibrillation with RVR: PLAN: Continue Eliquis. Agree with adding beta-tj. Once we have an idea of the daily dose of metoprolol that he is able to tolerate this can be switched to metoprolol succinate, probably at the time of discharge. (2) Heart failure, systolic, with acute decompensation: PLAN: Agree with increasing Lasix dose. (3) Nonsustained ventricular tachycardia: PLAN: Beta-tj has been added. Patient had a longer run of nonsustained V. tach when he was in the PCU as well. Appears to be related to his nonischemic cardiomyopathy. His potassium and magnesium at that time were normal. His potassium today was also normal and I agree with checking magnesium again. Charges/Coding Visit Charges Inpatient E&M: 03461 Subs Hosp L2
[2023-01-30] MEDS: Atorvastatin Calcium 20 MG Tablet PO (20:48)
[2023-01-31] VITALS (16 sets, daily range): BP systolic 84–104; BP diastolic 58–83; PULSE 84–103; RESP 16–20; TEMP 36.3–36.8; O2SAT 93–99; BMI 40.2
[2023-01-31] MEDS: Furosemide 500 MG in Empty Viaflex 50 mL 1 EACH CONT INF (04:35)
[2023-01-31 05:35] LABS: Absolute Lymphocyte Count 0.61 X10^3/uL (0.83-4.51); Absolute Neutrophil Count 13.2 X10^3/uL (2.0-7.7); Basophil# 0.02 X10^3/uL; Basophil% 0.1 % (0-1); Eosinophil# 0.01 X10^3/uL; Eosinophils% 0.1 % (0-5); Hematocrit 46.4 % (40-54); Hemoglobin 14.6 g/dL (13.0-16.5); Lymphocyte # 0.61 X10^3/ul (0.83-4.51); Mean Corp Hgb Conc 31.5 g/dL (32-36); Mean Corpuscular Hgb 27.6 pg (27.0-32.0); Mean Corpuscular Volume 87.7 fL (80-94); Mean Platelet Vol. 11.5 fl (6.2-12.0); Monocyte% 7.9 % (0-10); NRBC Flagged by Analyzer 0 % (0-5); Neutrophil # 13.22 X10^3/uL (2.7-7.7); Neutrophil % 87.2 % (47-70); Platelet Count 190 K/mm3 (150-450); RBC Distribution Width SD 48.1 fl (35.1-43.9); Red Blood Count 5.29 M/mm3 (4.6-6.2); White Blood Count 15.2 K/mm3 (4.4-11.0)
[2023-01-31 06:35] LABS: Anion Gap 10 (5-15); BUN 49 mg/dL (7-18); Calcium,Total 8.3 mg/dL (8.5-10.1); Chloride 95 mmol/L (98-107); Creatinine, Serum 1.44 mg/dL (0.70-1.30); EST Glomerular Filtration Rate 53 mL/min (>60); Est Glom Filt Rate - Afr Amer 64 mL/min (>60); Estimated Creatinine Clearance 55.92 ml/min; Glucose 112 mg/dL (74-106); Magnesium 2.4 mg/dL (1.6-2.6); Sodium Level 129 mmol/L (136-145)
[2023-01-31 06:43] LABS: Phosphorus 3.6 mg/dL (2.5-4.9)
[2023-01-31] MEDS: Ipratropium 0.5 MG/2.5 ML SOLUTION INHALATION ×3 (07:17→19:05)
--- NOTE | 2023-01-31 08:08 | PCM.PN.CARD ---
Subjective Subjective The was seen and evaluated. Appears to be doing better. Sitting in chair at this time. Objective Data Vital Signs: Vital Signs Temp Pulse Resp BP Pulse Ox O2 Del Method O2 Flow Rate 97.9 F 93 18 94/72 99 Room Air 1 01/31/23 07:50 01/31/23 07:50 01/31/23 07:50 01/31/23 07:50 01/31/23 07:56 01/31/23 07:56 01/29/23 15:00 FiO2 30 01/30/23 01:12 Oxygen Flow Rate (L/min) 1 Oxygen Delivery Method [3] Room Air Oxygen Delivery Method [2] Room Air Oxygen Delivery Method [1 ( Room Air Initial Baseline)] Oxygen Delivery Method Room Air Weight: 287 lb 11.252 oz Body Mass Index (BMI) 40.2 Intake & Output: Intake and Output for Last 24 Hours 01/29/23 01/30/23 01/31/23 23:59 23:59 23:59 Intake Total 1348.95 / 1348.95 1100.73 / 1100.73 329.17 / 329.17 Output Total 2100 / 2100 1400 / 1400 425 / 425 Balance -751.05 / -751.05 -299.27 / -299.27 -95.83 / -95.83 Lab / Micro Data Result Diagrams: 01/31/23 04:40 01/31/23 04:40 Labs: Laboratory Results - last 24 hr 01/31/23 04:40: Sodium 129 L, Potassium 4.0, Chloride 95 L, Carbon Dioxide 24.0, Anion Gap 10, BUN 49 H, Creatinine 1.44 H, Estim Creat Clear Calc 55.92, Est GFR (MDRD) Af Amer 64, Est GFR (MDRD) Non-Af 53 L, BUN/Creatinine Ratio 34.0 H, Glucose 112 H, Calcium 8.3 L, Magnesium 2.4 01/31/23 04:40: WBC 15.2 H, RBC 5.29, Hgb 14.6, Hct 46.4, MCV 87.7, MCH 27.6, MCHC 31.5 L, RDW Std Deviation 48.1 H, RDW Coeff of Manoj 15.0 H, Plt Count 190, MPV 11.5, Immature Gran % (Auto) 0.700, Neut % (Auto) 87.2 H, Lymph % (Auto) 4.0 L, [place] % (Auto) 7.9, Eos % (Auto) 0.1, Baso % (Auto) 0.1, Absolute Neuts (auto) 13.2 H, Absolute Lymphs (auto) 0.61 L, Nucleated RBC % 0 01/31/23 04:40: Phosphorus 3.6 Cardiology Labs/Tests 01/31/23 04:40: Sodium 129 L, Potassium 4.0, Chloride 95 L, Carbon Dioxide 24.0, Anion Gap 10, BUN 49 H, Creatinine 1.44 H, Est GFR (MDRD) Af Amer 64, Est GFR (MDRD) Non-Af 53 L, BUN/Creatinine Ratio 34.0 H, Glucose 112 H, Calcium 8.3 L, Magnesium 2.4 01/31/23 04:40: WBC 15.2 H, RBC 5.29, Hgb 14.6, Hct 46.4, MCV 87.7, MCH 27.6, MCHC 31.5 L, Plt Count 190, MPV 11.5, Immature Gran % (Auto) 0.700, Neut % (Auto) 87.2 H, Lymph % (Auto) 4.0 L, [place] % (Auto) 7.9, Eos % (Auto) 0.1, Baso % (Auto) 0.1, Absolute Neuts (auto) 13.2 H, Nucleated RBC % 0 01/31/23 04:40: Phosphorus 3.6 Rhythm: EKG: ECHO: Stress Test: Cardiac Cath: PCI: CT Surgery: Holter monitor: EPS: PPM: CXR: Chest CT Scan: Physical Exam Const alert and oriented x3 HEENT normocephalic Eyes no scleral icterus Resp Resp Narrative: Bibasal crackles. Much better air entry compared to yesterday Cardio Cardio Narrative: Irregular rhythm Extremity Extremity Narrative: 3+ pitting edema Psych mental status grossly normal Assessment & Plan Assessment/Plan (1) Heart failure, systolic, with acute decompensation: PLAN: The patient has severe left ventricular systolic dysfunction estimated ejection fraction to 20%. The above is due to nonischemic cardiomyopathy. The plan will be to continue to titrate up his beta-tj and I will recommend switching from metoprolol to carvedilol He does have baseline renal dysfunction but may be able to tolerate a very low-dose of a beta-tj if his blood pressure allows He also does have some renal dysfunction making SGLT 2 inhibitors relatively contraindicated. We will see how this improves Continue with the diuretics. We will switch from IV to p.o. today (2) Nonsustained ventricular tachycardia: PLAN: He did have evidence of nonsustained ventricular tachycardia. He will more than likely be considered a candidate for an implantable defibrillator. (3) Paroxysmal atrial fibrillation with RVR: PLAN: He will remain anticoagulated for the above. Thank you for allowing me to participate in the care of your patient. Please don't hesitate to call if any issues arise.
--- NOTE | 2023-01-31 08:48 | PN.RENAL_ITS ---
Subjective Subjective Patient is sitting in chair. Denies any complaints. No overnight events. Objective Data Objective Data Vital Signs: Vital Signs Temp Pulse Resp BP Pulse Ox O2 Del Method O2 Flow Rate 97.9 F 93 18 94/72 99 Room Air 1 01/31/23 07:50 01/31/23 07:50 01/31/23 07:50 01/31/23 07:50 01/31/23 07:56 01/31/23 07:56 01/29/23 15:00 FiO2 30 01/30/23 01:12 Oxygen Flow Rate (L/min) 1 Oxygen Delivery Method [3] Room Air Oxygen Delivery Method [2] Room Air Oxygen Delivery Method [1 ( Room Air Initial Baseline)] Oxygen Delivery Method Room Air Weight: 130.5 kg Body Mass Index (BMI) 40.2 Intake & Output: Intake and Output for Last 24 Hours 01/29/23 01/30/23 01/31/23 23:59 23:59 23:59 Intake Total 1348.95 / 1348.95 1100.73 / 1100.73 329.17 / 329.17 Output Total 2100 / 2100 1400 / 1400 425 / 425 Balance -751.05 / -751.05 -299.27 / -299.27 -95.83 / -95.83 Lab / Micro Data Result Diagrams: 01/31/23 04:40 01/31/23 04:40 Labs: Laboratory Results - last 24 hr 01/31/23 04:40: Sodium 129 L, Potassium 4.0, Chloride 95 L, Carbon Dioxide 24.0, Anion Gap 10, BUN 49 H, Creatinine 1.44 H, Estim Creat Clear Calc 55.92, Est GFR (MDRD) Af Amer 64, Est GFR (MDRD) Non-Af 53 L, BUN/Creatinine Ratio 34.0 H, Glucose 112 H, Calcium 8.3 L, Magnesium 2.4 01/31/23 04:40: WBC 15.2 H, RBC 5.29, Hgb 14.6, Hct 46.4, MCV 87.7, MCH 27.6, MCHC 31.5 L, RDW Std Deviation 48.1 H, RDW Coeff of Manoj 15.0 H, Plt Count 190, MPV 11.5, Immature Gran % (Auto) 0.700, Neut % (Auto) 87.2 H, Lymph % (Auto) 4.0 L, [place] % (Auto) 7.9, Eos % (Auto) 0.1, Baso % (Auto) 0.1, Absolute Neuts (auto) 13.2 H, Absolute Lymphs (auto) 0.61 L, Nucleated RBC % 0 01/31/23 04:40: Phosphorus 3.6 Micro: Microbiology 01/26/23 11:15 Urine Catheter - Watson Legionella Antigen - Final 01/26/23 11:15 Urine Catheter - Watson Streptococcus pneumoniae Antigen (M - Final 01/24/23 15:42 Nasal Secretion SARS-CoV-2 Antigen (Rapid) - Final Physical Exam Narrative Patient is alert and oriented, no apparent distress. Lung sounds clear. No wheezes, rhonchi or rales noted S1, S2, RRR Abdomen soft, rounded, nondistended, positive bowel sounds 3+ Pitting edema noted bilateral thighs, legs and feet Indwelling Watson catheter with clear yellow urine in bag Assessment & Plan Assessment/Plan (1) DONOVAN (acute kidney injury): (2) Hyponatremia: (3) Proteinuria: (4) Heart failure, systolic, with acute decompensation: (5) Anasarca: PLAN: Plan Impression/plan: The patient is a 62-year-old man with past history of heart failure with reduced ejection fraction (EF 20%), hypertension, and hyperlipidemia. The patient was admitted to the hospital on 01/24/2023 with exacerbation of heart failure/cardiogenic shock. Nephrology is following for DONOVAN, proteinuria, and volume management. - Acute kidney injury. Suspect patient has cardiorenal DONOVAN. Last available serum creatinine 1.00mg/dL prior to this admission was from April 2019. Renal function has been fluctuating since admission as expected with heart failure. Creatinine 1.47 mg/dL on admission, peaked 1.67 mg/dL on 01/26/2023 and today creatinine is 1.44 mg/dL. Overall renal function stable. 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 Renal function stable with IV diuresis - Acute decompensated systolic heart failure on Lasix drip. Per cumulative I&O patient is net negative almost 7 L. Admission weight 137 kg, last weight 129 kg. Diuretics per cardiology. - Hyponatremia. The patient likely has hypoosmolar hypertonic hyponatremia due to heart failure. Sodium was 119 on admission and today is 129. No symptoms of hyponatremia such as headache, nausea, or confusion. Treatment is to continue to decongest the patient with furosemide drip. - Proteinuria: The patient has urine protein to creatinine ratio of 1.1 g/g. He also has hypoalbuminemia with serum albumin of 2.7 g/dL. Although the patient has edema, urine protein is not high enough for diagnosis of nephrotic syndrome. Patient likely has nephrosclerosis explaining proteinuria. Once seen in outpatient office we can requalify urine protein again once the patient is more euvolemic.
--- NOTE | 2023-01-31 09:19 | PCM.PN.HOSP ---
Reason for Visit Reason for Visit: Swelling/shortness of breath Subjective Subjective No issues overnight. Patient states she is feeling better overall. Has been transitioned to oral medications for his diuretics by cardiology today. Also transition from metoprolol to Coreg this morning. Will await therapy to see him today to establish disposition at discharge. Remains on room air. Objective Data Objective Data Vital Signs: Vital Signs Temp Pulse Resp BP Pulse Ox O2 Del Method O2 Flow Rate 97.9 F 93 18 94/72 99 Room Air 1 01/31/23 07:50 01/31/23 07:50 01/31/23 07:50 01/31/23 07:50 01/31/23 07:56 01/31/23 07:56 01/29/23 15:00 FiO2 30 01/30/23 01:12 Oxygen Flow Rate (L/min) 1 Oxygen Delivery Method [3] Room Air Oxygen Delivery Method [2] Room Air Oxygen Delivery Method [1 ( Room Air Initial Baseline)] Oxygen Delivery Method Room Air Weight: 130.5 kg Body Mass Index (BMI) 40.2 Intake & Output: Intake and Output for Last 24 Hours 01/29/23 01/30/23 01/31/23 23:59 23:59 23:59 Intake Total 1348.95 / 1348.95 1100.73 / 1100.73 329.92 / 329.92 Output Total 2100 / 2100 1400 / 1400 425 / 425 Balance -751.05 / -751.05 -299.27 / -299.27 -95.08 / -95.08 Lab / Micro Data Result Diagrams: 01/31/23 04:40 01/31/23 04:40 Labs: Laboratory Results - last 24 hr 01/31/23 04:40: Sodium 129 L, Potassium 4.0, Chloride 95 L, Carbon Dioxide 24.0, Anion Gap 10, BUN 49 H, Creatinine 1.44 H, Estim Creat Clear Calc 55.92, Est GFR (MDRD) Af Amer 64, Est GFR (MDRD) Non-Af 53 L, BUN/Creatinine Ratio 34.0 H, Glucose 112 H, Calcium 8.3 L, Magnesium 2.4 01/31/23 04:40: WBC 15.2 H, RBC 5.29, Hgb 14.6, Hct 46.4, MCV 87.7, MCH 27.6, MCHC 31.5 L, RDW Std Deviation 48.1 H, RDW Coeff of Manoj 15.0 H, Plt Count 190, MPV 11.5, Immature Gran % (Auto) 0.700, Neut % (Auto) 87.2 H, Lymph % (Auto) 4.0 L, [place] % (Auto) 7.9, Eos % (Auto) 0.1, Baso % (Auto) 0.1, Absolute Neuts (auto) 13.2 H, Absolute Lymphs (auto) 0.61 L, Nucleated RBC % 0 01/31/23 04:40: Phosphorus 3.6 Micro: Microbiology 01/26/23 11:15 Urine Catheter - Watson Legionella Antigen - Final 01/26/23 11:15 Urine Catheter - Watson Streptococcus pneumoniae Antigen (M - Final 01/24/23 15:42 Nasal Secretion SARS-CoV-2 Antigen (Rapid) - Final Physical Exam Const alert, oriented x3 and well nourished; Negative for average body habitus or healthy appearing Constitutional Narrative: Morbidly obese, upper middle-aged, white male, appears older than stated age, sitting up in bed, nontoxic, appropriately interactive, watching television, appears chronically ill HEENT head/scalp atraumatic and moist oral mucous membranes HEENT Narrative: Mallampati 3, no thrush Head and Scalp: normocephalic Resp normal respiratory effort, no retractions, no use of accessory muscles and clear to auscultation bilaterally Resp Narrative: Diminished but clear Auscultation: Negative for rales, rhonchi or wheezes Cardio regular rate, S1 normal heart sound, S2 normal heart sound, no murmurs, no rub and no clicks; Negative for no gallops Cardio Narrative: rhythm is irregularly irregular but rate is controlled GI normal to inspection, nondistended, normoactive bowel sounds and soft to palpation GI Narrative: Anasarca is somewhat better however still present with marked swelling in his lower extremities Extremity Extremity Narrative: 2+ bilateral lower extremity pitting edema that extends up towards his hips and into his abdomen but overall slowly improving, no cyanosis or clubbing Neuro oriented x3, moves all extremities and no focal motor deficits Speech: speech normal Psych affect normal Psych Narrative: Affect is flat and mood seems somewhat depressed Assessment & Plan Assessment/Plan (1) Heart failure, systolic, with acute decompensation: (2) Ascites: (3) Pleural effusion: (4) Orthopnea: (5) Elevated d-dimer: (6) Hyponatremia: (7) Elevated serum creatinine: (8) Hyperbilirubinemia: (9) Heart failure, diastolic, with acute decompensation: (10) Anasarca: (11) Paroxysmal atrial fibrillation with RVR: (12) Acute respiratory failure with hypoxia: (13) Wide-complex tachycardia: (14) Cardiogenic shock: PLAN: Plan Cardiogenic shock -Resolved -Remains stable -Remains on room air today -Pressors have been off for over 48 hours -Lasix drip discontinued and patient transition to oral Lasix 60 mg twice daily by cardiology -Cardiac catheterization was unremarkable for any obstructive coronary artery disease -Exact etiology for depressed EF is unknown at this time -Cardiology following-appreciate input Acute decompensated systolic/diastolic heart failure -Newly diagnosed -Echocardiogram has resulted and shows an EF of 20%, global dysfunction with stage III diastolic dysfunction, mild left atrial enlargement, severe right atrial enlargement, mild to moderate mitral valve insufficiency, mild to moderate tricuspid valve insufficiency, pulmonary systolic pressure is 20 mmHg, severe global hypokinesis of the LV -Now on room air -Down 6.85 L for hospital stay -Lasix drip transition to oral Lasix 60 mg p.o. twice daily -Metoprolol transition to Coreg 6.25 mg p.o. twice daily -Patient still markedly volume overloaded--> I suspect his diuresis will incomplete at the time of discharge and his swelling may have a nutritional component as well -Continue strict I's and O's -Continue daily weights -Continue fluid restriction -Sodium restricted diet -Cardiology is following-appreciate input Large right pleural effusion-transudative -Status post-thoracentesis on 01/25/2023 with 2100 cc removed -Transudative per lights criteria -Resolved -Continue diuresis Acute hypoxic respiratory failure with suspected pneumonia -After the thoracentesis the patient developed significant coughing and hypoxia -Chest x-ray shows new infiltrate in right base which was obscured by fluid previously -We will continue to CAP coverage with ceftriaxone to complete a course of 7 days and day 6 of 7 -Aggressive pulmonary toilet -Mucinex -Strep pneumo and Legionella antigens are negative -No sputum able to be obtained -White count has resolved A-fib with RVR -EKG on presentation shows A-fib with RVR -Patient remains in A-fib however rate is controlled -Continue Eliquis 5 mg p.o. twice daily -Continue beta-tj but this was transition from metoprolol to Coreg -Cardiology is following Wide-complex tachycardia -Suspect VT however could be A-fib with aberrancy -Patient has been asymptomatic with these events -With EF would be candidate for defibrillator -Cardiology is following Elevated serum creatinine -Baseline is unknown -Kidney function remains relatively stable despite diuresis -I suspect he is off the Starling curve therefore has cardiorenal syndrome -Continue oral Lasix -Avoid nephrotoxins as able -Discontinue Watson -Nephrology is following-appreciate input Hypervolemic hyponatremia -secondary to CHF -Stable at 129 -Has improved with diuresis -Repeat BMP in a.m. Anasarca -Secondary above -Monitor clinically -Diurese as able Elevated D-dimer -CTA of the chest was negative for PE -Lower extremity Dopplers are negative for DVT Ascites -Minimal on ultrasound -Review of the liver was not performed I will need to discuss with radiology however I do anticipate that his ascites is related to his heart failure at this point Hyperlipidemia -LDL is at goal -Continue current statin Hypertension -Antihypertensives on hold because of hypotension GERD -Continue Protonix Morbid obesity -Weight is improving with diuresis -Current BMI is 40.1 -Daily weights ordered with diuresis -Recommend weight loss -Complicates treatment, prognosis, outcomes History of alcohol abuse -Remote History of tobacco abuse -No current use -Recommend ongoing cessation DVT prophylaxis -Eliquis CODE STATUS -Full code Disposition: -Patient remains clinically stable and being transitioned off Lasix drip to oral Lasix and Coreg is being added with discontinuation of metoprolol. Therapy to see the patient today with hopeful discharge home per his request tomorrow however I did inform him that if therapy feels he may need more therapy as an inpatient we may need to pursue this as he does live alone. He voiced understanding. Charges/Coding Visit Charges Inpatient E&M: 13819 Subs Hosp L2
[2023-01-31] MEDS: Pantoprazole Sodium 40 MG Tablet PO (10:21)
[2023-01-31] MEDS: Carvedilol 6.25 MG Tablet PO (10:21)
[2023-01-31] MEDS: Furosemide 20 MG Tablet 60 MG PO ×2 (10:21→17:23)
[2023-01-31] MEDS: 0.9% Saline Lock 10 ML Syringe IV (10:21)
[2023-01-31] MEDS: APIXABAN 5 MG TABLET PO ×2 (10:21→22:15)
[2023-01-31] MEDS: Escitalopram Oxalate 10 MG Tablet PO (10:24)
--- NOTE | 2023-01-31 10:30 | NURSING ---
Report given to JOHN Charles. She will resume care of this patient at this time.
[2023-01-31] MEDS: Atorvastatin Calcium 20 MG Tablet PO (22:15)
[2023-02-01] VITALS (8 sets, daily range): BP systolic 92–107; BP diastolic 75–83; PULSE 65–95; RESP 18–21; TEMP 35.8–36.7; O2SAT 94–97; BMI 40.6
[2023-02-01] MEDS: Ipratropium 0.5 MG/2.5 ML SOLUTION INHALATION ×3 (01:05→13:50)
[2023-02-01 06:55] LABS: Absolute Lymphocyte Count 0.88 X10^3/uL (0.83-4.51); Absolute Neutrophil Count 10.5 X10^3/uL (2.0-7.7); Basophil# 0.01 X10^3/uL; Basophil% 0.1 % (0-1); Eosinophil# 0.02 X10^3/uL; Eosinophils% 0.2 % (0-5); Hematocrit 46.1 % (40-54); Hemoglobin 14.6 g/dL (13.0-16.5); Lymphocyte # 0.88 X10^3/ul (0.83-4.51); Lymphocyte % 7.1 % (19-41); Mean Corp Hgb Conc 31.7 g/dL (32-36); Mean Corpuscular Hgb 27.7 pg (27.0-32.0); Mean Corpuscular Volume 87.5 fL (80-94); Mean Platelet Vol. 11.2 fl (6.2-12.0); NRBC Flagged by Analyzer 0 % (0-5); Neutrophil # 10.51 X10^3/uL (2.7-7.7); Neutrophil % 84.1 % (47-70); Platelet Count 200 K/mm3 (150-450); RBC Distribution Width CV 15.1 % (11.6-14.6); RBC Distribution Width SD 48.2 fl (35.1-43.9); Red Blood Count 5.27 M/mm3 (4.6-6.2); White Blood Count 12.5 K/mm3 (4.4-11.0)
[2023-02-01 07:26] LABS: Anion Gap 10 (5-15); BUN 53 mg/dL (7-18); BUN/Creat Ratio 36.8 RATIO (10-20); Calcium,Total 8.5 mg/dL (8.5-10.1); Chloride 95 mmol/L (98-107); Creatinine, Serum 1.44 mg/dL (0.70-1.30); EST Glomerular Filtration Rate 53 mL/min (>60); Est Glom Filt Rate - Afr Amer 64 mL/min (>60); Estimated Creatinine Clearance 55.92 ml/min; Glucose 92 mg/dL (74-106); Potassium 4.3 mmol/L (3.5-5.1); Sodium Level 128 mmol/L (136-145)
[2023-02-01] MEDS: Pantoprazole Sodium 40 MG Tablet PO (09:20)
[2023-02-01] MEDS: Furosemide 20 MG Tablet 60 MG PO (09:20)
[2023-02-01] MEDS: APIXABAN 5 MG TABLET PO (09:20)
[2023-02-01] MEDS: Escitalopram Oxalate 10 MG Tablet PO (09:21)
[2023-02-01] MEDS: 0.9% Saline Lock 10 ML Syringe IV (09:24)
--- NOTE | 2023-02-01 09:29 | CASEMGMT ---
JOHN DEMARCO notified that patient will need HHC at discharge. JOHN DEMARCO called [facility] to inquire who is patient's PCP, Dr. Latesha Flores. A list of HHC providers including quality and resource use data and consistent with the patient?s preferred geographical region, medical needs, and insurance network were provided from the [facility] Guide. Patient states he has no preferences and is agreeable to C agencies that will accept him. JOHN DEMARCO asked if patient would be okay with [facility], patient agreeable. CM to send referral to [facility]. CM will continue to follow this patient and plan for a safe discharge.
--- NOTE | 2023-02-01 09:42 | CASEMGMT ---
Discharge Planning Referral sent to [facility] via [facility] for SN/PT/OT. RN CM followed up with phone call. Araceli Trejo
--- NOTE | 2023-02-01 10:11 | PCM.PN.REN ---
Subjective Subjective Resting quietly in bed, denies any complaints. No overnight events. Objective Data Objective Data Vital Signs: Vital Signs Temp Pulse Resp BP Pulse Ox O2 Del Method O2 Flow Rate 97.4 F L 89 18 92/77 97 Room Air 1 02/01/23 08:45 02/01/23 08:45 02/01/23 08:45 02/01/23 08:45 02/01/23 08:45 02/01/23 08:45 01/29/23 15:00 FiO2 30 01/30/23 01:12 Oxygen Flow Rate (L/min) 1 Oxygen Delivery Method [3] Room Air Oxygen Delivery Method [2] Room Air Oxygen Delivery Method [1 ( Room Air Initial Baseline)] Oxygen Delivery Method Room Air Weight: 131.6 kg Body Mass Index (BMI) 40.6 Intake & Output: Intake and Output for Last 24 Hours 01/30/23 01/31/23 02/01/23 23:59 23:59 23:59 Intake Total 1100.73 / 1100.73 749.92 / 869.92 180 / 180 Output Total 1400 / 1400 755 / 755 250 / 250 Balance -299.27 / -299.27 -5.08 / 114.92 -70 / -70 Lab / Micro Data Result Diagrams: 02/01/23 06:16 02/01/23 06:16 Labs: Laboratory Results - last 24 hr 02/01/23 06:16: Sodium 128 L, Potassium 4.3, Chloride 95 L, Carbon Dioxide 23.0, Anion Gap 10, BUN 53 H, Creatinine 1.44 H, Estim Creat Clear Calc 55.92, Est GFR (MDRD) Af Amer 64, Est GFR (MDRD) Non-Af 53 L, BUN/Creatinine Ratio 36.8 H, Glucose 92, Calcium 8.5 02/01/23 06:16: WBC 12.5 H, RBC 5.27, Hgb 14.6, Hct 46.1, MCV 87.5, MCH 27.7, MCHC 31.7 L, RDW Std Deviation 48.2 H, RDW Coeff of Manoj 15.1 H, Plt Count 200, MPV 11.2, Immature Gran % (Auto) 0.500, Neut % (Auto) 84.1 H, Lymph % (Auto) 7.1 L, [place] % (Auto) 8.0, Eos % (Auto) 0.2, Baso % (Auto) 0.1, Absolute Neuts (auto) 10.5 H, Absolute Lymphs (auto) 0.88, Nucleated RBC % 0 Micro: Microbiology 01/31/23 20:46 Stool Enteric Bacteriology - Final 01/31/23 20:46 Stool C. difficile DNA Amplification - Final 01/26/23 11:15 Urine Catheter - Watson Legionella Antigen - Final 01/26/23 11:15 Urine Catheter - Watson Streptococcus pneumoniae Antigen (M - Final 01/24/23 15:42 Nasal Secretion SARS-CoV-2 Antigen (Rapid) - Final Physical Exam Narrative Patient is alert and oriented, no apparent distress. Lung sounds clear. No wheezes, rhonchi or rales noted S1, S2, RRR Abdomen soft, rounded, nondistended, positive bowel sounds 3+ Pitting edema noted bilateral thighs, legs and feet Assessment & Plan Assessment/Plan (1) DONOVAN (acute kidney injury): (2) Hyponatremia: (3) Proteinuria: (4) Heart failure, systolic, with acute decompensation: (5) Anasarca: PLAN: Plan Impression/plan: The patient is a 62-year-old man with past history of heart failure with reduced ejection fraction (EF 20%), hypertension, and hyperlipidemia. The patient was admitted to the hospital on 01/24/2023 with exacerbation of heart failure/cardiogenic shock. Nephrology is following for DONOVAN, proteinuria, and volume management. - Acute kidney injury likely cardiorenal DONOVAN, vs CKD at baseline. Last available serum creatinine 1.00mg/dL prior to this admission was from April 2019. Renal function has been fluctuating since admission as expected with heart failure. Creatinine 1.47 mg/dL on admission, peaked 1.67 mg/dL on 01/26/2023 and today creatinine again 1.44 mg/dL. Overall renal function stable with diuresis. 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 - Acute decompensated systolic heart failure, patient was on Lasix drip, now 60mg po bid. Per cumulative I&O patient is net negative almost 7 L. Admission weight 137 kg, current wt ~129 kg. Diuretics per cardiology. Discussed with patient importance of FR. - Hyponatremia. The patient likely has hypoosmolar hypertonic hyponatremia due to heart failure. Sodium was 119 on admission and today is 128. - Proteinuria: urine protein to creatinine ratio of 1.1 g/g. He also has hypoalbuminemia with serum albumin of 2.7 g/dL. Although the patient has edema, urine protein is not high enough for diagnosis of nephrotic syndrome. Patient likely has nephrosclerosis explaining proteinuria. Once seen in outpatient office we can requalify urine protein again once the patient is more euvolemic. - disposition: possible discharge to home today. Will arrange for hospital follow-up.
--- NOTE | 2023-02-01 11:17 | CASEMGMT ---
JOHN DEMARCO received call back from [facility] and they are able to accept the patient with start of care this week. JOHN DEMARCO in to updated patient. Patient is requsting FWW at discharge. No preferences and agreeable to [facility]. JOHN DMEARCO recieved script for [facility]WW and referral made to [facility]. JOHN DEMARCO updated patient's discharge plan. Patient denied further questions or concerns at this time. DC director of financial planning to send discharge instructions to [facility] when available.
[2023-02-01] MEDS: Carvedilol 6.25 MG Tablet PO (11:44)
--- NOTE | 2023-02-01 12:43 | DS.PCM_ITS ---
Providers Date of Admission: 01/24/23 Date of Discharge: 02/01/23 Primary Care Physician: [facility] Consultations 01/25/23 14:31 Consult: Cardiology Routine Consulting Provider: Tanisha Perez Reason for Consult: CHF EMERGENT Consult: No Notified: Yes Date Notified: 01/25/23 Time Notified: 14:31 Method of Notification: Verbal 01/26/23 13:06 Consult: Print Line Operator / Pulmonary Medicine Routine Consulting Provider: Pulmonary Medicine [facility] Reason for Consult: Acute Respiratory Failure EMERGENT Consult: No MD Notified: Yes Date Notified: 01/26/23 Time Notified: 13:06 Method of Notification: Verbal 01/27/23 06:29 Consult: Nephrology Routine Consulting Provider: Bayron Eduardo Reason for Consult: DONOVAN vs Nephritic EMERGENT Consult: No Notified: Yes Date Notified: 01/27/23 Time Notified: 08:29 Method of Notification: Answering Service Reason For Visit: CHF Diagnosis Discharge Diagnosis (1) DONOVAN (acute kidney injury): Status: Acute Code(s): N17.9 - Acute kidney failure, unspecified (2) Hyponatremia: Status: Acute Code(s): E87.1 - Hypo-osmolality and hyponatremia (3) Proteinuria: Status: Acute Code(s): R80.9 - Proteinuria, unspecified (4) Heart failure, systolic, with acute decompensation: Status: Chronic Code(s): I50.23 - Acute on chronic systolic (congestive) heart failure (5) Anasarca: Status: Acute Code(s): R60.1 - Generalized edema (6) Nonsustained ventricular tachycardia: Status: Acute Code(s): I47.29 - Other ventricular tachycardia Plan Cardiogenic shock -Resolved -Remains stable -Remains on room air today -Pressors have been off for over 48 hours -Lasix drip discontinued and patient transition to oral Lasix 60 mg twice daily by cardiology -Cardiac catheterization was unremarkable for any obstructive coronary artery disease -Exact etiology for depressed EF is unknown at this time -Cardiology following-appreciate input Acute decompensated systolic/diastolic heart failure -Newly diagnosed -Echocardiogram has resulted and shows an EF of 20%, global dysfunction with stage III diastolic dysfunction, mild left atrial enlargement, severe right atrial enlargement, mild to moderate mitral valve insufficiency, mild to moder ate tricuspid valve insufficiency, pulmonary systolic pressure is 20 mmHg, severe global hypokinesis of the LV -Now on room air -Down 6.85 L for hospital stay -Lasix drip transition to oral Lasix 60 mg p.o. twice daily -Metoprolol transition to Coreg 6.25 mg p.o. twice daily -Patient still markedly volume overloaded--> I suspect his diuresis will incomplete at the time of discharge and his swelling may have a nutritional component as well -Continue strict I's and O's -Continue daily weights -Continue fluid restriction -Sodium restricted diet -Cardiology is following-appreciate input Large right pleural effusion-transudative -Status post-thoracentesis on 01/25/2023 with 2100 cc removed -Transudative per lights criteria -Resolved -Continue diuresis Acute hypoxic respiratory failure with suspected pneumonia -After the thoracentesis the patient developed significant coughing and hypoxia -Chest x-ray shows new infiltrate in right base which was obscured by fluid previously -We will continue to CAP coverage with ceftriaxone to complete a course of 7 days and day 6 of 7 -Aggressive pulmonary toilet -Mucinex -Strep pneumo and Legionella antigens are negative -No sputum able to be obtained -White count has resolved A-fib with RVR -EKG on presentation shows A-fib with RVR -Patient remains in A-fib however rate is controlled -Continue Eliquis 5 mg p.o. twice daily -Continue beta-tj but this was transition from metoprolol to Coreg -Cardiology is following Wide-complex tachycardia -Suspect VT however could be A-fib with aberrancy -Patient has been asymptomatic with these events -With EF would be candidate for defibrillator -Cardiology is following Elevated serum creatinine -Baseline is unknown -Kidney function remains relatively stable despite diuresis -I suspect he is off the Starling curve therefore has cardiorenal syndrome -Continue oral Lasix -Avoid nephrotoxins as able -Discontinue Watson -Nephrology is following-appreciate input Hypervolemic hyponatremia -secondary to CHF -Stable at 129 -Has improved with diuresis -Repeat BMP in a.m. Anasarca -Secondary above -Monitor clinically -Diurese as able Elevated D-dimer -CTA of the chest was negative for PE -Lower extremity Dopplers are negative for DVT Ascites -Minimal on ultrasound -Review of the liver was not performed I will need to discuss with radiology however I do anticipate that his ascites is related to his heart failure at this point Hyperlipidemia -LDL is at goal -Continue current statin Hypertension -Antihypertensives on hold because of hypotension GERD -Continue Protonix Morbid obesity -Weight is improving with diuresis -Current BMI is 40.1 -Daily weights ordered with diuresis -Recommend weight loss -Complicates treatment, prognosis, outcomes History of alcohol abuse -Remote History of tobacco abuse -No current use -Recommend ongoing cessation DVT prophylaxis -Eliquis CODE STATUS -Full code Disposition: -Patient remains clinically stable and being transitioned off Lasix drip to oral Lasix and Coreg is being added with discontinuation of metoprolol. Therapy to see the patient today with hopeful discharge home per his request tomorrow however I did inform him that if therapy feels he may need more therapy as an inpatient we may need to pursue this as he does live alone. He voiced understanding. Medications at Discharge Home Medications pantoprazole 40 mg tablet,delayed release 40 mg PO DAILY stomach 05/01/19 simvastatin 20 mg tablet 20 mg PO QHS cholesterol 01/24/23 apixaban 5 mg tablet (Eliquis) 5 mg PO BID #30 tabs 02/01/23 carvedilol 6.25 mg tablet 6.25 mg PO BID #60 tabs 02/01/23 escitalopram oxalate 10 mg tablet 10 mg PO DAILY #30 tabs 02/01/23 furosemide 20 mg tablet 60 mg PO BIDLX #180 tabs 02/01/23
--- NOTE | 2023-02-01 12:43 | PCM.DC.SUM ---
Providers Date of Admission: 01/24/23 Date of Discharge: 02/01/23 Primary Care Physician: [facility] Consultations 01/25/23 14:31 Consult: Cardiology Routine Consulting Provider: Tanisha Perez Reason for Consult: CHF EMERGENT Consult: No Notified: Yes Date Notified: 01/25/23 Time Notified: 14:31 Method of Notification: Verbal 01/26/23 13:06 Consult: [place] Closer / Pulmonary Medicine Routine Consulting Provider: Pulmonary Medicine [facility] Reason for Consult: Acute Respiratory Failure EMERGENT Consult: No MD Notified: Yes Date Notified: 01/26/23 Time Notified: 13:06 Method of Notification: Verbal 01/27/23 06:29 Consult: Nephrology Routine Consulting Provider: Bayron Eduardo Reason for Consult: DONOVAN vs Nephritic EMERGENT Consult: No Notified: Yes Date Notified: 01/27/23 Time Notified: 08:29 Method of Notification: Answering Service Reason For Visit: CHF Diagnosis Discharge Diagnosis (1) DONOVAN (acute kidney injury): Status: Acute Code(s): N17.9 - Acute kidney failure, unspecified (2) Hyponatremia: Status: Acute Code(s): E87.1 - Hypo-osmolality and hyponatremia (3) Proteinuria: Status: Acute Code(s): R80.9 - Proteinuria, unspecified (4) Heart failure, systolic, with acute decompensation: Status: Chronic Code(s): I50.23 - Acute on chronic systolic (congestive) heart failure (5) Anasarca: Status: Acute Code(s): R60.1 - Generalized edema (6) Nonsustained ventricular tachycardia: Status: Acute Code(s): I47.29 - Other ventricular tachycardia Medications at Discharge Home Medications pantoprazole 40 mg tablet,delayed release 40 mg PO DAILY stomach 05/01/19 simvastatin 20 mg tablet 20 mg PO QHS cholesterol 01/24/23 apixaban 5 mg tablet (Eliquis) 5 mg PO BID #30 tabs 02/01/23 carvedilol 6.25 mg tablet 6.25 mg PO BID #60 tabs 02/01/23 escitalopram oxalate 10 mg tablet 10 mg PO DAILY #30 tabs 02/01/23 furosemide 20 mg tablet 60 mg PO BIDLX #180 tabs 02/01/23 Hospital Course Procedures 2-D Echocardiogram, Cardiac catheterization, CPR performed, EKG, PICC line placement and Thoracentesis Summary of Care Provided Minutes Spent on Discharge: 38 Hospital Course: Mr. Avilez is a 62-year-old white male who presented to the emergency department at [facility] on 01/24/2023 with a chief complaint of edema, worsening shortness of breath, and orthopnea. The patient reported at the time of presentation he was having worsening shortness of breath and lower extremity swelling that had been progressively worsening over a month. We then got him to admit it actually had been going on since September. He was going to the [place] and had some evaluation done in [place]. It sounded as if he had PFTs as an outpatient but he was unclear if he had ever had a previous echocardiogram. They did give him Lasix and it was increased but he reported that it was not working effectively as it had initially and stopped taking it since he did not feel it was working. At the time of presentation his temperature was 97, heart rate 83, respiratory rate 20, blood pressure 103/83 and oxygen saturation was 95% on room air. His CBC was overall unimpressive. Chemistry panel revealed hyponatremia with a sodium of 119 and a BUN of 37 with a creatinine of 1.47. His initial troponin was normal however BNP was performed and found to be six 1709.4. Chest x-ray demonstrated a large right pleural effusion. CTA of the chest was done for an elevated D-dimer and showed no PE or arterial dissection but did show a moderately large right pleural effusion with compression atelectasis and patchy bilateral infiltrates with ascites. He was admitted to the PCU and started on a Lasix drip. An echocardiogram was ordered and demonstrated an EF of 20% with global dysfunction and stage III diastolic function along with mild left atrial enlargement, severe right atrial large minute, mild to moderate mitral valve insufficiency, mild to moderate tricuspid valve insufficiency, mild elevation in pulmonary systolic pressures at 20 mmHg and severe global hypokinesis of the LV. He was also noted to be in A-fib with RVR on presentation. Given these findings cardiology was consulted and the patient was maintained on his Lasix drip. The following day the patient was having some abdominal pain and getting up to use the bathroom at which time he became unresponsive and pulse was not able to be palpated so CPR was initiated. Upon review of vitals at the time it appears that he was hypotensive with bradycardia and it was felt that he most likely had a vagal event. He had subsequent respiratory distress and worsening hypotension so he was transferred to the ICU with cardiogenic shock and placed on BiPAP. He responded well to this. Eighth thoracentesis was able to be performed on 01/25/2023 with 2100 cc removed from his right lung. Per lights criteria this was transudative. Cultures were unremarkable. Post CPR he had respiratory distress as noted above and was started on antibiotics for which she completed a course of community-acquired antibiotics. He was able to be weaned off oxygen to room air after ongoing diuresis. His renal functions slightly worsened so nephrology was consulted and followed throughout his hospital stay however no significant invention was required. They will follow-up with him as an outpatient and we do suspect he has CKD stage IIIb as his serum creatinine remained stable throughout his hospital course despite diuresis. We were able to add Coreg 6.25 mg twice daily to control heart rate. His A-fib RVR was never much faster than 110 on a regular basis. He had few bouts that were in the 140s however this was very temporary and his heart rate was controlled on Coreg at the time of discharge. He was started on Eliquis as he has a very high [id number] score. He tolerated this well throughout his hospital course. He had extensive education with regards to fluid restriction and sodium intake and was evaluated by the dietitian with education provided by her as well. Pulmonary medicine evaluated the patient while he was in the ICU and recommended outpatient follow-up for ongoing respiratory work-up. He did develop some wide-complex tachycardia which was likely VT. Runs were very short and per discussion with cardiology they wanted a 24-hour Holter monitor to be placed at the time of discharge as he is at increased risk for sudden cardiac with a an extremely low EF. His swelling did improve however was not resolved at the time of discharge. He was discharged home with Coreg 6.25 mg p.o. twice daily, Lasix 60 mg p.o. twice daily, apixaban 5 mg p.o. twice daily, and we started Lexapro 10 mg daily as he did show signs of depression during his hospital course. He will remain on his Protonix and simvastatin. His amlodipine was discontinued. He was evaluated by physical and Occupational Therapy prior to discharge and they felt that he would benefit from ongoing therapy services at the time of discharge in the form of home health. Home health was arranged at the time of discharge. Follow-up appointments were made for him with cardiology and pulmonary medicine the time of discharge. I discussed the case with nephrology and they will call him to make an appointment for follow-up. He was instructed to call his primary care physician and obtain an appointment in the next 1 to 2 weeks as well as a basic metabolic profile to be done by the end of the week. He was discharged home in stable condition on 02/01/2023 on room air. Discharge diagnoses: Cardiogenic shock-resolved Acute decompensated systolic/diastolic heart failure Wide-complex tachycardia Large right pleural effusion-resolved Acute hypoxic respiratory failure-resolved A-fib with RVR CKD stage IIIb Chronic hyponatremia Anasarca Hyperbilirubinemia Ascites Hyperlipidemia Hypertension GERD Morbid obesity History of alcohol abuse History of tobacco abuse Physical Exam Const alert, oriented x3 and well nourished; Negative for average body habitus or healthy appearing Constitutional Narrative: Morbidly obese, upper middle-aged, white male, appears older than stated age, sitting up in a chair at the bedside, watching television, watching television, appears chronically ill General Appearance: cooperative, comfortable, well kempt and well developed Orientation / Consciousness: awake, oriented to person, oriented to place and oriented to time Exam Limitations: no limitations Nutritional Appearance: morbidly obese HEENT normocephalic, head/scalp atraumatic, hearing grossly normal bilaterally and moist oral mucous membranes HEENT Narrative: Mallampati 3, no thrush Eyes PERRL, EOMs intact bilaterally and conjunctivae normal Eyes Narrative: No scleral icterus Neck no lymphadenopathy, supple and no JVD Neck Narrative: trachea midline, no thyroid enlargement Resp normal respiratory effort, no retractions, no use of accessory muscles and clear to auscultation bilaterally Resp Narrative: Diminished but clear Auscultation: Negative for rales, rhonchi or wheezes Cardio regular rate, regular rhythm, S1 normal heart sound, S2 normal heart sound, no murmurs, no rub and no clicks; Negative for no gallops Cardio Narrative: rhythm is irregularly irregular but rate is controlled GI normal to inspection, nondistended, normoactive bowel sounds and soft to palpation GI Narrative: Anasarca remains to be improving however still present with marked swelling in his lower extremities-approximately 2+ Extremity Extremity Narrative: 2+ bilateral lower extremity pitting edema that extends up towards his hips and into his abdomen but overall slowly improving, no cyanosis or clubbing Skin no rashes or lesions noted, no wounds, skin turgor normal, no jaundice, no petechiae and no mottling Skin Narrative: Right upper extremity PICC Neuro oriented x3, CN's II-XII intact bilaterally, moves all extremities, no focal motor deficits and no sensory deficits noted Sensorium / Orientation: awake, alert, oriented to person, oriented to place and oriented to time Speech: speech normal Psych affect normal Psych Narrative: Affect is flat and mood seems somewhat depressed Weight / BMI Weight Weight: 131.6 kg Body Mass Index (BMI) 40.6 ABG / Lab / Microbiology Data Result Diagrams: 02/01/23 06:16 02/01/23 06:16 Laboratory: Laboratory Results - last 24 hr 02/01/23 06:16: Sodium 128 L, Potassium 4.3, Chloride 95 L, Carbon Dioxide 23.0, Anion Gap 10, BUN 53 H, Creatinine 1.44 H, Estim Creat Clear Calc 55.92, Est GFR (MDRD) Af Amer 64, Est GFR (MDRD) Non-Af 53 L, BUN/Creatinine Ratio 36.8 H, Glucose 92, Calcium 8.5 02/01/23 06:16: WBC 12.5 H, RBC 5.27, Hgb 14.6, Hct 46.1, MCV 87.5, MCH 27.7, MCHC 31.7 L, RDW Std Deviation 48.2 H, RDW Coeff of Manoj 15.1 H, Plt Count 200, MPV 11.2, Immature Gran % (Auto) 0.500, Neut % (Auto) 84.1 H, Lymph % (Auto) 7.1 L, [place] % (Auto) 8.0, Eos % (Auto) 0.2, Baso % (Auto) 0.1, Absolute Neuts (auto) 10.5 H, Absolute Lymphs (auto) 0.88, Nucleated RBC % 0 Microbiology: Microbiology 01/31/23 20:46 Stool Enteric Bacteriology - Final 01/31/23 20:46 Stool C. difficile DNA Amplification - Final 01/26/23 11:15 Urine Catheter - Watson Legionella Antigen - Final 01/26/23 11:15 Urine Catheter - Watson Streptococcus pneumoniae Antigen (M - Final 01/24/23 15:42 Nasal Secretion SARS-CoV-2 Antigen (Rapid) - Final D/C Instructions Discharge Diet: Low fat / Low cholesterol (Limit your fluid intake to 2 L daily) and 2000 mg Sodium Diet Discharge Activity: Return to Normal Activity Meaningful Use Info Meaningful Use Diagnoses (Choose all that apply): None applicable Discharge Plan Admission Admit Date/Time: 01/24/23 18:06 Primary Reason for Your Visit: Shortness of Breath/Swelling Attending Provider: Anali Larose Primary Care Provider: [facility] Consulting Providers: Toni Guzmán ; Tanisha Perez ; Mihir Cantrell ; Jacques Foster ; Thuan Lucia ; Dileep Song ; Simona Shafer NP ; Bayron Eduardo Instructions Patient Instructions: HAI RN Thoracentesis Dc, Heart Failure and Depression, Low-Salt Choices, Heart Failure Flare Up Signs, Heart Failure Make Changes Diet, Low Salt Diet Dc, Heart Failure Care, Heart Failure Post Hospital, Heart Failure Additional Instructions / Restrictions: 1. Please weigh yourself daily and if you gain more than 3 pounds in 24 hours please call your senior informatica etl developer office 2. Also call if your urine output decreases 3. Please call your primary care physician and ask that a basic metabolic profile be ordered to be drawn on 02/04/2023 Discharge Orders/Prescriptions Prescriptions: New Eliquis 5 mg Tablet 5 mg PO BID Qty: 30 1RF carvedilol 6.25 mg Tablet 6.25 mg PO BID Qty: 60 1RF escitalopram oxalate 10 mg Tablet 10 mg PO DAILY Qty: 30 1RF furosemide 20 mg Tablet 60 mg PO BIDLX Qty: 180 0RF Continued pantoprazole 40 MG tablet 40 mg PO DAILY simvastatin 20 mg Tablet 20 mg PO QHS Discontinued amlodipine 5 MG tablet 10 mg PO DAILY Other Ambulatory Orders: Cardiac Holter Monitor, 24 Hrs (Routine) Timeframe: 1 Day Facility: [facility] - Location: Cardiovascular Services Ordered By: Dr. Anali Larose Cardiac Holter Monitor, 24 Hrs (Routine) Timeframe: 1 Day Facility: [facility] - Location: Cardiovascular Services Ordered By: Dr. Anali Larose Referrals / Follow Up: Gilberto Ochoa MD [Med Staff - Consulting] - Within 1 Month (The office should call you for an appointment however if they do not please call and make an appointment early next week to be seen within the next month) Thuan Lucia MD [Med Staff - Active Staff] - 02/21/23 11:20 am Elizabeth Chandler NP, ARMORED CABLE MACHINE OPERATOR-C [Non-Staff -Ordering Privileges] - 02/08/23 9:00 [facility] [Primary Care Provider] - Within 2 Weeks Disposition Disposition (needs filled in before D/C Order can be placed): Home Health Service Charges/Coding Visit Charges Inpatient E&M: 13908 Disch Hosp >30min
--- NOTE | 2023-02-01 13:29 | CASEMGMT ---
Discharge Planning Discharge summary sent to [facility] via [facility]. [facility] notified of discharge date. Araceli Trejo
--- NOTE | 2023-02-01 14:16 | PHA.DC.MC ---
Pharmacy Service has performed discharge medication reconciliation and counseling for this patient. 1. APIXABAN 5MG PO BID 2. CARVEDILOL 6.25MG PO BID 3. ESCITALOPRAM 10MG PO DAILY 4. FUROSEMIDE 60MG PO BIDLX The patient's discharge medication list was reviewed for discrepancies and discrepancies were resolved. Home Medications pantoprazole 40 mg tablet,delayed release 40 mg PO DAILY stomach 05/01/19 simvastatin 20 mg tablet 20 mg PO QHS cholesterol 01/24/23 apixaban 5 mg tablet (Eliquis) 5 mg PO BID #30 tabs 02/01/23 carvedilol 6.25 mg tablet 6.25 mg PO BID #60 tabs 02/01/23 escitalopram oxalate 10 mg tablet 10 mg PO DAILY #30 tabs 02/01/23 furosemide 20 mg tablet 60 mg PO BIDLX #180 tabs 02/01/23 The patient was counseled on the following discharge medications and changes in medications for homegoing were reviewed. The Reason for Use, instructions for use, and potential side effects were reviewed for all new medications. The patient's questions regarding all of their medications were answered. The patient was able to verbally demonstrate an understanding of their discharge medications.
--- NOTE | 2023-02-01 16:30 | NURSING ---
Called pharmacy to bring medications to bedside
--- NOTE | 2023-02-07 10:16 | CL.D_ITS ---
Patient Name: BLAZE MILLER Study Date: 01/26/2023 Performing: Ayanna Perez MD Ht: 71 inches 180.34 cm : 1960 Wt: 290.1 lbs 131.4 kg Age: 62 Gender: male BSA: 2.47 PROCEDURE(S) PERFORMED [id number])[facility] CLINICAL PROFILE AND INDICATIONS Indications: Cardiomyopathy Heart Failure: NYHA Class: 4, Newly Diagnosed: Yes Stress/Imaging Stress/Image Study Performed: No CAD Presentations: Other: Cardiogenic Shock, V tach CONCLUSIONS No significant obstructive CAD RECOMMENDATIONS DESCRIPTION OF PROCEDURE The patient arrived to the procedure lab. The risks and benefits of the procedure as well as a full description of our services here and current unavailability of surgical backup were fully explained to the patient and/or their significant other prior to the catheterization. The Timeout was completed, verifying the correct patient and procedure. The patient's procedural site was prepped and draped in the usual fashion. Local anesthetic was given subcutaneously to right groin region with Lidocaine 2%. Using a modified Seldinger technique, arterial access was obtained via the right femoral artery, with Micropuncture set Left Coronary Artery selective angiography was performed in multiple views using a 5 Fr. JL4 catheter. LV to AO pullback pressures were then recorded. Right Coronary Artery selective angiography was then performed in multiple views using a 6 Fr. JR 4 catheter.The arterial sheath was sutured in place with heparinized normal saline under pressure CORONARY ANGIOGRAPHY DOMINANCE: Right Dominant LEFT HEART ASSESSMENT LEFT MAIN: Mild luminal irregularities LEFT ANTERIOR DESCENDING ARTERY: Mild luminal irregularities CIRCUMFLEX ARTERY: Mild luminal irregularities RIGHT CORONARY ARTERY: Mild luminal irregularities VALVE FINDINGS: No Aortic Valve Stenosis COMPLICATIONS No Complications PROCEDURE MEDICATIONS Oxygen: 60 % FiO2 via Bipap SUMMARY OF HEMODYNAMIC DATA Time AIR REST ECG 14:09:10 AO 66/49 (56) SA 14:23:07 LV 85/12, 26 14:26:33 LV 92/17, 28 14:26:42 LVp 86/21, 32 14:27:34 AOp 80/59 (68) 14:27:42 Signed By Ayanna Perez MD On 02/07/2023 10:16:03 Ayanna Perez MD
== END 2023-02-01 17:11 | disposition home health service (06) | DRG 192 ==
LOC: ED 16:19 → PCU 18:23 → ICU 01-26 13:19 → PCU 01-30 15:13
PROVIDERS: Emergency Medicine; Hospitalist; Internal Medicine Critical Care Medicine; Nurse Practitioner Adult Health; Admitting Provider Family Medicine; Emergency Provider Student in an Organized Health Care Education/Training Program; Visit Provider Internal Medicine
DX: I13.0 Hypertensive heart and chronic kidney disease with heart failure and stage 1 through stage 4 chronic kidney disease, or unspecified chronic kidney disease (principal); J96.01 Acute respiratory failure with hypoxia; R57.0 Cardiogenic shock; I42.8 Other cardiomyopathies; J18.9 Pneumonia, unspecified organism; E87.1 Hypo-osmolality and hyponatremia; E88.09 Other disorders of plasma-protein metabolism, not elsewhere classified; I47.29 Other ventricular tachycardia; J90 Pleural effusion, not elsewhere classified; J44.0 Chronic obstructive pulmonary disease with (acute) lower respiratory infection; E66.01 Morbid (severe) obesity due to excess calories; Z68.41 Body mass index [BMI] 40.0-44.9, adult; N17.9 Acute kidney failure, unspecified; I50.43 Acute on chronic combined systolic (congestive) and diastolic (congestive) heart failure; I48.0 Paroxysmal atrial fibrillation; J44.1 Chronic obstructive pulmonary disease with (acute) exacerbation; N18.32 Chronic kidney disease, stage 3b; I95.1 Orthostatic hypotension; E78.5 Hyperlipidemia, unspecified; K21.9 Gastro-esophageal reflux disease without esophagitis; E80.6 Other disorders of bilirubin metabolism; I08.1 Rheumatic disorders of both mitral and tricuspid valves; J98.11 Atelectasis; K59.00 Constipation, unspecified; E86.1 Hypovolemia; F32.A Depression, unspecified; R18.8 Other ascites; R79.1 Abnormal coagulation profile; Z71.3 Dietary counseling and surveillance; Z79.01 Long term (current) use of anticoagulants; Z79.84 Long term (current) use of oral hypoglycemic drugs; Z79.899 Other long term (current) drug therapy; Z87.891 Personal history of nicotine dependence
CPT/HCPCS: 32555; 36415; 36569; 71045; 71046; 71250; 71275; 76705; 80048; 80053; 80061; 80076; 81001; 82570; 82803; 82945; 82962; 83615; 83735; 83880; 84100; 84156; 84157; 84443; 84484; 85025; 85379; 85730; 87449; 87493; 87506; 87641; 87811; 88108; 88305; 88313; 88341; 88342; 89050; 92950; 93005; 93306; 93454; 93970; 94002; 94003; 94640; 94668; 94760; 94762; 97110; 97162; 97166; 97530; 97535; 97802; 99284; 99406; J7040; J7050; Q9957; Q9967; A4216; C1769; C8929; J0696; J1940; J2405

== ENCOUNTER → 2023-02-01 | Outpatient (CLI) | payer MEDICAID, SELFPAY | END | disposition home or self-care (01) | LOC: PSN 14:09 | PROVIDERS: Referring Provider Internal Medicine; Visit Provider Internal Medicine | DX: I47.29 Other ventricular tachycardia (principal) | CPT/HCPCS: 93225; 93226 ==

== ENCOUNTER → 2023-03-02 | Outpatient (CLI) | payer MEDICAID, SELFPAY | END | disposition home or self-care (01) | DX: R19.7 Diarrhea, unspecified (principal) | CPT/HCPCS: 87493; 87506 ==

== ENCOUNTER 2023-05-02 07:57 | Emergency (ER) | payer OTHER, SELFPAY ==
[2023-05-02] VITALS (8 sets, daily range): BP systolic 72–148; BP diastolic 47–101; PULSE 66–117; RESP 16–20; TEMP 36.4; O2SAT 95–98; BMI 31.8
--- NOTE | 2023-05-02 08:09 | EKG12_ITS ---
Test Reason : SYNCOPE Blood Pressure : / mmHG Vent. Rate : 111 BPM Atrial Rate : 000 BPM P-R Int : 000 ms QRS Dur : 136 ms QT Int : 378 ms P-R-T Axes : 000 -54 124 degrees QTc Int : 514 ms Atrial fibrillation with rapid ventricular response Left axis deviation Non-specific intra-ventricular conduction block Minimal voltage criteria for LVH, may be normal variant ( Bobby product ) Nonspecific T wave abnormality Abnormal ECG Confirmed by DALTON BOOGIE ([id number]), story editor ANKUR RICHARDS ([id number]) on 05/09/2023 2:04:10 PM Referred By: Confirmed By:DALTON BOOGIE
[2023-05-02] MEDS: 0.9% Normal Saline 1,000 ML 999 ML IV ×2 (08:10→08:53)
--- NOTE | 2023-05-02 08:10 | EX.ED.DYSGE1 ---
HPI History of Present Illness Chief Complaint: Syncope Informant: patient and EMS Narrative Narrative: Patient presents around 8 AM by EMS for a syncopal episode that occurred about 8 hours ago. He states this happens from time to time when he is either going to the toilet or coming away from it, tonight he cannot recall exactly the scenario, but he remembers going to the toilet. Cannot remember whether he passed out on the way to it or just after getting off of it and walking across his house. He lives alone. He laid on the floor all night and was unable to get up on his own due to feeling weak, denies any injury. He states he was yelling and eventually someone came to his door and that is who called EMS. Is a very poor historian, does not know his medical history well, states he has some wounds on his right leg, they were last wrapped at the [facility] in [place] yesterday, when asked how long the wounds have been there, his responses they have been wrapped a dozen times or more. When asked how he got to [place], he states his brother was available and able to take him yesterday. He lives alone and does not have any usual help. He does not know any of his medical problems or his medications. He admits to having a cough on ROS but denies any other major issues except for feeling weak and having the wounds on his right leg that are not bothering him right now. [facility] Medical History Angioedema COPD exacerbation Food impaction of esophagus Heart failure, diastolic, with acute decompensation Heart failure, systolic, with acute decompensation History of alcohol abuse History of tobacco abuse Hypertension Hypertension Hyponatremia Morbid obesity Nonsustained ventricular tachycardia Paroxysmal atrial fibrillation with RVR Pneumonia Proteinuria Wide-complex tachycardia Home Medications pantoprazole 40 mg tablet,delayed release 40 mg PO DAILY stomach 05/01/19 [History Last Taken 04/30/23] simvastatin 20 mg tablet 20 mg PO QHS cholesterol 01/24/23 [History Last Taken 04/30/23] carvedilol 6.25 mg tablet 6.25 mg PO BID #60 tabs 02/01/23 [Rx Last Taken Unknown] escitalopram oxalate 10 mg tablet 10 mg PO DAILY #30 tabs 02/01/23 [Rx Last Taken 05/01/23] furosemide 20 mg tablet 60 mg (3 x 20 mg) PO BIDLX #180 tabs 02/01/23 [Rx Last Taken Unknown] Allergy/AdvReac Type Severity Reaction Status Date / Time lisinopril Allergy Angioedema Verified 05/02/23 07:58 Family History Other Heart disease Surgical History H/O elbow surgery Social History Smoking Status: Former smoker ROS ROS ED Constitutional Constitutional ED: Reports malaise and weakness; Denies chills or fever(s) Eyes Eyes: Denies change in vision or diplopia ENT ENT ED: Denies rhinorrhea or sore throat Cardiovascular Cardiovascular: Denies chest pain or palpitations Respiratory/Chest Respiratory/Chest: Reports cough; Denies dyspnea Gastrointestinal Gastrointestinal: Denies abdominal pain, diarrhea, nausea or vomiting Genitourinary Genitourinary ED: Denies dysuria or hematuria Musculoskeletal Musculoskeletal: Denies back pain or neck pain Integumentary Reports wounds; Denies abscess or rash Neurologic Neurologic: Denies confusion, headache(s), paresthesias or weakness Psychiatric Psychiatric: Denies anxiety or suicidal thoughts Endocrine Endocrinology: Reports other Details: Polydipsia and polyuria, I have been drinking a lot of water lately EXAM Physical Exam Const Vital Signs: 05/02/23 07:58 05/02/23 08:09 05/02/23 08:29 Temperature 97.5 F L Temperature Source Temporal Pulse Rate 114 H Respiratory Rate 16 Respiratory Effort Normal Respiratory Pattern Normal Blood Pressure 89/71 L Blood Pressure Mean 77 Pulse Ox 96 Oxygen Delivery Method Room Air Room Air 05/02/23 08:50 05/02/23 08:55 05/02/23 09:30 Temperature Temperature Source Pulse Rate 102 H 115 H 117 H Respiratory Rate 19 H 18 18 Respiratory Effort Respiratory Pattern Blood Pressure 80/69 L 96/73 93/76 Blood Pressure Mean 72 80 81 Pulse Ox 98 96 96 Oxygen Delivery Method Room Air Room Air Room Air 05/02/23 09:40 05/02/23 10:30 Temperature Temperature Source Pulse Rate 115 H 111 H Respiratory Rate 16 18 Respiratory Effort Respiratory Pattern Blood Pressure 93/76 105/88 H Blood Pressure Mean 81 93 Pulse Ox 95 97 Oxygen Delivery Method Room Air Room Air Positive well nourished, well developed and unkempt General Appearance ED: unkempt, well developed and NAD HEENT Reports moist mucous membranes normocephalic and atraumatic Eyes PERRL and EOMs intact bilaterally Neck full ROM, no lymphadenopathy and supple Chest Wall inspection of chest normal and palpation of chest normal Resp normal respiratory effort and clear to auscultation bilaterally Cardio regular rate, regular rhythm and no murmurs Rate: tachycardic GI non-tender and non-distended Auscultation: normoactive bowel sounds Palpation: soft Back/Spine no CVA tenderness General Back: other FROM Extremity Extremity Narrative: Superficial wound posterior aspect of of the mid right calf, nontender no discharge. Scabbed wound lateral distal right lower leg, there is mild erythema throughout the entire anterior lateral right lower leg, none of this is tender or indurated. No abscess. Full range of motion of the knee and ankle without difficulty. A couple of dry necrotic black toe tips right second toe and a small less than 1 cm? area at the great toe, nontender. Wraps that were on the leg which were 1 day old according to the patient were dirty with a scant amount of serous discharge on them as well. General Extremety ED: Negative for edema, pulses abnormal or tenderness General Extremity: Negative for edema or pulses abnormal Neuro oriented x3, CN's II-XII intact bilaterally and no sensory deficits noted Neuro Narrative: Can move everything symmetrically. Does not seem confused, just a very poor historian with regards to medical history. GCS 15. Sitting upright in bed keenly alert. Sensorium / Orientation: awake and alert Motor Exam: general weakness Psych mental status grossly normal Appearance: unkempt Skin no rashes or lesions noted and no wounds Sepsis Attestation Sepsis Alert: Yes Sepsis Attestation: Agree w/Sepsis Date exam was performed: 05/02/23 Time exam was performed: 08:30 Possible Source of Sepsis: Pulmonary, Skin/soft tissue and Wound Sepsis Organ Dysfunction Criteria Present: SBP < 90 mmHg or MAP < 65 mmHg, Creatinine > 2.0 mg/dL, Total Bilirubin > 2 mg/dl, INR > 1.5 or aPTT > 60 sec, Lactic Acid > 2 mmol/L and Serum CO2 < 20 mmol/L (on BMP) Fluid Resuscitation Fluid resuscitation indicated?: Yes Fluid Resuscitation ordered: Lesser volume fluid bolus ordered Amount of fluid ordered: 2,000 Reason for lesser fluid bolus:: Heart failure and BP Responded to a lesser volume Sepsis Note Date exam was performed: 05/02/23 Time exam was performed: 09:15 Sepsis Attestation: Sepsis re-evaluation was performed Response to fluids: Fluid responsive hypotension MDM MDM MDM Narrative Medical decision making narrative: Patient is hypotensive and tachycardic. Is likely related to his syncopal episode. Septic work-up obtained and given a liter of IV fluid bolus. Reviewing medications available in the EMR and his past medical history, he has a history of paroxysmal atrial fibrillation for which she is anticoagulated on Eliquis, and is on a large daily dose of furosemide which may be why he is always so thirsty; he states he is not a diabetic, they just checked that. 1 view chest x-ray my interpretation shows a right middle or lower lobe infiltrate with a small parapneumonic effusion. This may be the cause of his hypotension and/or cough, sepsis protocol continued along with the second liter of IV fluid since he was still 89 systolic blood pressure after the first liter, however we stopped after that because his pressure came up to 96/73 and reviewing his prior echocardiogram he has severe LV hypokinesis with an ejection fraction of 20%. Clinically he is doing well, alert and talking while sitting up. Antibiotics started, he has significant DONOVAN and metabolic disturbances due to his lactic acidosis and that, plan is for admission. His troponin is elevated, this may be due to strain and/or low flow, there is no sign of an acute injury on the EKG which is showing A-fib with mild RVR and is otherwise unchanged with regards to his morphology and axis. He is coagulopathic and on Xarelto but not bleeding from anywhere. [facility], so [facility] or not, the patient preferred to stay here so I was waiting for their decision on whether we could keep him here or transfer him. I had the principal secretary indicate that we needed an ICU bed there. They asked for the chart, it was faxed, over 500 pages, and they told us to wait until they reviewed it. In the meantime, I continue checking on the patient his pressure remained steady in the 90s, and he remained alert, I gave him and his brother an update, his brother is the medical power of mergers and acquisitions attorney. Meanwhile I discussed with hospitalist briefly and told him that we were waiting to hear back from the [facility] before I discussed the case with him, which I did not get a chance to do. While we were waiting for the [facility] to get [facility] with us, the patient had a large melanotic stool, staff showed me this, was not grossly bloody, and he had no other signs of bleeding from anywhere. Shortly after this, the patient had a syncopal episode associated with the staff turning him over to help clean him up from the bowel movement. His heart rate had gone up with this temporarily, and his blood pressure dropped. They placed him in Trendelenburg and laid him back, he came back around and his blood pressure improved to the 90s again. I went to evaluate him, and suddenly he then became unconscious, with agonal breathing, which check for a pulse was thready he had a delayed capillary refill. We continue to check in for a pulse which he then lost and we started ACLS/CPR. Brother not present at that time. See the nursing flowsheet for ACLS details, he was given a total of epinephrine for rounds, we performed CPR with multiple helpers as we called a code to get help from other parts of the hospital. I had nursing start dopamine, at 1 point he widened his complexes look like monomorphic ventricular tachycardia and we performed synchronized cardioversion multiple times. We did have spontaneous return of circulation at 1 point, with thready pulse and blood pressure in the 70s. At this point we obtained a repeat EKG, it basically shows continued A-fib with his left axis now becoming a full left bundle branch block, but no sign of ventricular tachycardia, with a pulse/rate in the 80s. I did have nursing give calcium chloride 1 amp as well as bicarb 1 amp and amiodarone 300 mg, and during ACLS and pulse checks we intubated the patient with the least amount of interruption and CPR possible. While we had his pulse back, I did discuss with the brother, as well as before that, he was outside the room. He said he was medical power of mergers and acquisitions attorney, he knows the patient's wishes, he knows he has been struggling and very ill for some time, and does wish him to be DNR Comfort Care arrest, and for us not to perform CPR/resuscitation if he were to arrest again. I verbally ordered Kcentra and Levophed, and we began placing a central line, with prepping the site of his left IJ when he suddenly changed his rhythm and went into ventricular tachycardia losing his pulse again, which shocked him at 360 biphasic, this converted him temporarily he then went into V. tach again, seem to come out of it, then he became bradycardic and lost his pulse very quickly, I had the ultrasound they are looking at his internal jugular vein, there was loss of flow, and in changing the probe in looking at his heart there is no motion. Time of 1222. Discussed with the brother and staff to discuss with storehouse clerk. History & Record Review Discussion w/independent historian: EMS personnel and Patient Additional record(s) reviewed:: Prior outpatient record (Echo as above; cardiac catheterization 02/07/2023, mild diffuse luminal irregularities, no focal CAD.) Lab Data Attestation: I reviewed the patient's lab results. Labs: Laboratory Results - last 24 hr 05/02/23 08:13 WBC 10.8 RBC 5.33 Hgb 15.1 Hct 45.7 MCV 85.7 MCH 28.3 MCHC 33.0 RDW Std Deviation 67.9 H RDW Coeff of Manoj 22.3 H Plt Count 156 MPV 11.1 Immature Gran % (Auto) 0.300 Neut % (Auto) 85.2 H Lymph % (Auto) 6.9 L Screven % (Auto) 7.5 Eos % (Auto) 0.0 Baso % (Auto) 0.1 Absolute Neuts (auto) 9.2 H Absolute Lymphs (auto) 0.75 L Nucleated RBC % 1.8 Polychromasia RARE Anisocytosis 1+ PT 49.4 H INR 5.3 H* APTT 56.2 H Sodium 125 L Potassium 5.2 H Chloride 95 L Carbon Dioxide 13.0 L Anion Gap 17 H BUN 74 H Creatinine 3.22 H Estim Creat Clear Calc 24.68 Est GFR (MDRD) Af Amer 25 L Est GFR (MDRD) Non-Af 21 L BUN/Creatinine Ratio 23.0 H Glucose 89 Lactic Acid 2.8 H* Calcium 9.2 Total Bilirubin 3.00 H AST 949 H ALT 347 H Alkaline Phosphatase 144 H Total Creatine Kinase 1546 H Troponin I High Sens 626 H* Total Protein 6.3 L Albumin 3.2 Globulin 3.1 Albumin/Globulin Ratio 1.0 Radiography Diagnostic Testing: Clinical Impression(s) from Imaging Studies Chest X-Ray 05/02/23 08:35 IMPRESSION: Small right pleural effusion with underlying infiltration and/or atelectasis. Electronically Signed: Angel Brown MD at 8:59 EDT , Rhythm Strip Rhythm Strip: A-fib Rate: 113 Ectopy: None EKG Initial EKG: Attestation: I personally reviewed and interpreted this EKG as follows: Interpretation: No Acute Injury Pattern, Atrial Fibrillation and LAFB Prior EKG tracings: available for review Prior: Unchanged Management Discussion w/another healthcare provider: Hospitalist Procedures Intubations Intubation Method: orotracheal (8.0F ETT, pretreatment with etomidate 20 mg, rocuronium 100 mg due to patient obtunded but biting down on laryngoscope when attempted without drugs; secured at 22 cm at the teeth. Bloody discharge aspirated through tube, but not in oropharynx.) Intubation Verification: Positive color change and Bilateral breath sounds confirmed Intubation Complications: no complications Critical Care Time Critical Care Time: Yes Critical care time (excluding procedures): 75-104 minutes (78 min, not including procedures, but including supervision of ACLS), Including time spent:, Discussing w/Patient &/or Family/3D Specialist, Discussing w/Consultants, Arranging Admission or Transfer and Performing Direct Patient Care at Bedside Discharge Plan Triage Chief Complaint: Syncope ED Provider: Bigg Jones Dx/Rx/DC Orders Clinical Impression: DONOVAN (acute kidney injury), Pneumonia involving right lung, Parapneumonic effusion, Elevated troponin, Sepsis, Leg wound, right, Acute hyponatremia, Atrial fibrillation with RVR, Cardiomyopathy, nonischemic, Cardiopulmonary arrest Prescriptions: No Action pantoprazole 40 MG tablet 40 mg PO DAILY simvastatin 20 mg Tablet 20 mg PO QHS carvedilol 6.25 mg Tablet 6.25 mg PO BID Qty: 60 1RF escitalopram oxalate 10 mg Tablet 10 mg PO DAILY Qty: 30 1RF furosemide 20 mg Tablet 60 mg PO BIDLX Qty: 180 0RF [facility] [Primary Care Provider] - Disposition Disposition: Acute Care Hospital [facility]
[2023-05-02 08:20] LABS: Absolute Lymphocyte Count 0.75 X10^3/uL (0.83-4.51); Absolute Neutrophil Count 9.2 X10^3/uL (2.0-7.7); Basophil# 0.01 X10^3/uL; Basophil% 0.1 % (0-1); Hematocrit 45.7 % (40-54); Hemoglobin 15.1 g/dL (13.0-16.5); Lymphocyte # 0.75 X10^3/ul (0.83-4.51); Lymphocyte % 6.9 % (19-41); Mean Corpuscular Hgb 28.3 pg (27.0-32.0); Mean Corpuscular Volume 85.7 fL (80-94); Mean Platelet Vol. 11.1 fl (6.2-12.0); Monocyte# 0.81 X10^3/uL; Monocyte% 7.5 % (0-10); NRBC Flagged by Analyzer 1.8 % (0-5); Neutrophil # 9.24 X10^3/uL (2.7-7.7); Neutrophil % 85.2 % (47-70); POSITIVE MORPHOLOGY YES; Platelet Count 156 K/mm3 (150-450); RBC Distribution Width CV 22.3 % (11.6-14.6); RBC Distribution Width SD 67.9 fl (35.1-43.9); Red Blood Count 5.33 M/mm3 (4.6-6.2); White Blood Count 10.8 K/mm3 (4.4-11.0)
[2023-05-02 08:21] LABS: Differential Indicated SCAN CRITERIA MET
[2023-05-02 08:29] LABS: Prothrombin Time (Protime)PT. 49.4 SECONDS (11.7-14.9)
[2023-05-02 08:30] LABS: Partial Thromboplast Time 56.2 Seconds (24.1-36.2)
--- NOTE | 2023-05-02 08:35 | RAD_ITS ---
STUDY: X-RAY CHEST REASON FOR EXAM: Male, 63 years old. Cough TECHNIQUE: Single AP portable view of the chest. COMPARISON: Comparison is made with prior study dated January 30, 2023. FINDINGS: EKG electrodes are seen. Small right pleural effusion with right basilar atelectasis and/or infiltration. Normal size heart. Normal mediastinum and promise. Normal visualized pulmonary arteries. There is atherosclerotic calcification of the aortic arch with tortuosity. There are diffuse degenerative changes of the visualized thoracic spine. Normal visualized ribs, clavicles, and shoulders. There is no demonstrated abnormality of the visualized soft tissue structures of the upper abdomen. RAD/Chest 1 View (Portable) IMPRESSION: Small right pleural effusion with underlying infiltration and/or atelectasis. Electronically Signed: Angel Brown MD at 8:59 EDT ,
[2023-05-02 08:36] LABS: International Normalized Ratio 5.3
[2023-05-02 08:43] LABS: Lactic Acid 2.8 mmol/L (0.4-1.9)
[2023-05-02 08:46] LABS: Anisocytosis 1+; Polychromasia RARE
[2023-05-02 09:10] LABS: Alanine Aminotransfer ALT/SGPT 347 U/L (16-61); Albumin, Serum 3.2 g/dL (3.2-5.0); Alkaline Phosphatase 144 U/L (45-117); Anion Gap 17 (5-15); BUN 74 mg/dL (7-18); Calcium,Total 9.2 mg/dL (8.5-10.1); Chloride 95 mmol/L (98-107); Creatinine, Serum 3.22 mg/dL (0.70-1.30); EST Glomerular Filtration Rate 21 mL/min (>60); Est Glom Filt Rate - Afr Amer 25 mL/min (>60); Estimated Creatinine Clearance 24.68 ml/min; Globulin 3.1 g/dL (2.2-4.2); Glucose 89 mg/dL (74-106); Potassium 5.2 mmol/L (3.5-5.1); Protein, Total 6.3 g/dL (6.4-8.2); Sodium Level 125 mmol/L (136-145); Troponin-I HS 626 pg/mL (3.0-78.0)
--- NOTE | 2023-05-02 09:25 | ED.RN ---
[facility] TO [facility]
[2023-05-02 09:52] LABS: AST(SGOT) 949 U/L (15-37); CPK Total, Creatine Kinase 1546 U/L (39-308)
--- NOTE | 2023-05-02 10:20 | ED.RN ---
[facility] CALLED BACK 1020A, LOOKING OVER CHART PRESENTING IT WITH DR, TO CALL BACK WITH Y OR N FOR ADMISSION
--- NOTE | 2023-05-02 11:35 | ED.RN ---
blocker and sewer and medic in room assisting pt to get cleaned up from incontinence. pt c/o nausea. turning to clean pt up pt had very large black jelly like bm. and started to go in and out of consciousness per their report. called for assistance [id number]. this nurse entered room. pt not responding, dusky/purple color to ears and neck, faint pulse. breathing became agonal, pulse faint called respiratory and dr oneill to room. 1140 no pulse felt cpr initiated see intervention
--- NOTE | 2023-05-02 12:10 | EKG12_ITS ---
Test Reason : Blood Pressure : / mmHG Vent. Rate : 086 BPM Atrial Rate : 000 BPM P-R Int : 000 ms QRS Dur : 162 ms QT Int : 432 ms P-R-T Axes : 000 -89 068 degrees QTc Int : 516 ms Atrial fibrillation Left axis deviation Right bundle branch block Inferior infarct , age undetermined Anterior infarct , age undetermined Abnormal ECG Confirmed by DALTON BOOGIE ([id number]), make up editor ANKUR RICHARDS ([id number]) on 05/09/2023 1:54:32 PM Referred By: Confirmed By:DALTON BOOGIE
[2023-05-02 12:17] LABS: Reflex Lactate? Y
--- NOTE | 2023-05-02 13:39 | CHAPLAIN ---
Type of Pastoral Visit ___ Initial Visit ___ Follow-up Visit ___ On-call Visit ___ General Patient Visit ___ Spiritual Assessment ___ Family Conference ___ Bereavement ___ Rapid Response _x__ Code Blue ___ Other (describe below) Pastoral Care Referral From ___ Patient ___ Family ___ Nurse ___ Physician ___ Hospice Social Worker ___ Rubble Placer _x__ Other (describe below) Sacrament/Intervention _x__ Active listening ___ Anointing ___ Taoist _x__ Bereavement ___ Communion ___ Maddison exploration ___ _x__ Life review _x__ Prayer ___ Reconciliation ___ Sacrament of Sick _x__ Supportive presence ___ Wedding ___ Other (describe below) Pastoral Comments responded to code blue in ED; brother of patient is in waiting so introduced self and role of the tree fruit and nut crops farmer to the brother; went into patient room where medical team is aggressively working to support life of pt; returned to brother to offer presence and support; joined by ANCA at this time who was also available for personal support; made communication between doctor and brother on development of situation; escorted brother to DR who came to speak with him; offered a prayer on behalf of the patient; continued to be present with brother until patient ; sat with brother and then escorted him into room to view the and with him while he made some phone calls; also escorted brother out of the building after he met with medical team and sat in the room of the patient to say his goodbye
== END 2023-05-02 14:19 ==
PROVIDERS: Emergency Provider Emergency Medicine; Visit Provider Emergency Medicine
DX: N17.9 Acute kidney failure, unspecified (principal); A41.9 Sepsis, unspecified organism; I42.8 Other cardiomyopathies; I11.0 Hypertensive heart disease with heart failure; I50.42 Chronic combined systolic (congestive) and diastolic (congestive) heart failure; I46.9 Cardiac arrest, cause unspecified; I48.91 Unspecified atrial fibrillation; J18.9 Pneumonia, unspecified organism; R77.8 Other specified abnormalities of plasma proteins; S81.801A Unspecified open wound, right lower leg, initial encounter; E87.1 Hypo-osmolality and hyponatremia; Z87.891 Personal history of nicotine dependence; Z79.899 Other long term (current) drug therapy; X58.XXXA Exposure to other specified factors, initial encounter
CPT/HCPCS: 31500; 31720; 71045; 80053; 82274; 82550; 83605; 84484; 85025; 85610; 85730; 87040; 87811; 92950; 93005; 94002; 96365; 96367; 99285; J7030; A4216; C1751; J0696